=== PATIENT | female | born 1985 | race Caucasian/White ===

== ENCOUNTER → 2019-03-28 18:19 | Outpatient (CLI) | payer OTHER, SELFPAY | PROVIDERS: Visit Provider Physician Assistant | DX: J02.9 Acute pharyngitis, unspecified (principal) | CPT/HCPCS: 87070 ==

== ENCOUNTER → 2019-05-22 07:07 | Outpatient (CLI) | payer OTHER, SELFPAY ==
[2019-05-22 08:02] LABS: Hematocrit 40.8 % (36-46); Hemoglobin 13.8 g/dL (12.0-16.0); Mean Corpuscular HGB Conc 33.7 % (30-36); Mean Corpuscular Hemoglobin 30.8 PG (26-34); Mean Corpuscular Volume 91.2 fL (80-100); Platelet Count 244 X10^3/uL (150-400); Red Blood Cell Count 4.47 X10^6/uL (4.0-5.2); Red Cell Distribution Width 13.6 % (11.6-14.8); White Blood Cell Count 6.5 X10^3/uL (4.5-11.0)
[2019-05-22 08:20] LABS: Alanine Aminotransferase 47 IU/L (9-52); Albumin 4.5 g/dL (3.5-5.0); Albumin Globulin Ratio 1.4 (1.0-2.8); Alkaline Phosphatase 81 U/L (38-126); Aspartate Aminotransferase 43 IU/L (14-36); Bilirubin Total 0.9 mg/dL (0.2-1.3); Blood Urea Nitrogen 15 mg/dL (7-17); Calcium 8.5 mg/dL (8.4-10.2); Carbon Dioxide 25 mmol/L (22-32); Chloride 101 mmol/L (98-107); Cholesterol 201 mg/dL (140-199); Estimated Glomerular Filt Rate > 60.0 mL/min (>60); Globulin 3.2 g/dL (1.7-4.1); Glucose 87 mg/dL (70-100); HDL Cholesterol 57 mg/dL (40-60); LDL Cholesterol Calculated 125 mg/dL (<100); Potassium 4.2 mmol/L (3.4-5.1); Sodium 135 mmol/L (137-145); Total Protein 7.7 g/dL (6.3-8.2); Triglycerides 94 mg/dL (35-150)
[2019-05-22 08:23] LABS: HEMOLYSIS 51 (0-50)
[2019-05-22 08:43] LABS: TSH w/ Reflex to FT4 1.05 uIU/mL (0.47-4.68)
== END ==
PROVIDERS: PCP Nurse Practitioner Family; Visit Provider Nurse Practitioner Family
DX: F41.1 Generalized anxiety disorder (principal); Z00.00 Encounter for general adult medical examination without abnormal findings; Z13.6 Encounter for screening for cardiovascular disorders
CPT/HCPCS: 36415; 80053; 80061; 84443; 85027

== ENCOUNTER 2019-05-29 07:30 | Outpatient (RCR) | payer OTHER, SELFPAY ==
--- NOTE | 2018-09-12 16:46 | PT.OIE ---
Current Diagnoses Sprain of unspecified ligament of right ankle, initial encounter (09/12/18) Provider Visit Care Team Role Provider Type Milagros Haider DO Primary Care Provider Physician Specialty: Family Practice Address: [address] [place] [address], [id number] Email: [email or web address] Dudley Cleveland MD Attending Provider Physician Specialty: Orthopedic Surgery Address: [address] [place] [address], [id number] Email: [email or web address] Physical Therapy Initial Evaluation PT-OP-A Visit Information Start: 09/12/18 16:01 Freq: Status: Active Protocol: Document 09/12/18 16:01 [facility] (Rec: 09/12/18 16:28 [facility] [email or web address]) Out-Patient Physical Therapy Visit Information Visit Information Visit Type Initial Evaluation Visit Start Time 14:30 Visit Stop Time 15:15 Total Visit Minutes 45 Visit Number 1 Number of HAND QUILTER Visits 0 Evaluation Information Evaluation Date 09/12/18 PT-OP-B Current Condition Start: 09/12/18 16:01 Freq: Status: Active Protocol: Document 09/12/18 16:01 [facility] (Rec: 09/12/18 16:28 [facility] [email or web address]) Current Condition History of Current Condition Onset Date 6 weeks ago History of Current Condition 33 year old female with history of chronic ankle sprains since high school. She reports playing multiple sports in high school including basketball and skiing/ snowboarding. Currently she sprains her ankle approximately 5 times per year and it is most often her right ankle. This current time she was in her back yard kicking the ball to her dog when she stepped on a uneven surface and rolled her ankle. She noted that her symptoms were not getting better with ice so she made a MD appointment. She has had a MRI due to increased laxity of her ankle and Dr. Cleveland was concerned about her stability but the MRI was negative. Her chief complaint at this time is pain in the medial side of her foot starting at the arch and going behind her medial malleolus to the middle of her medial raygoza. 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 Prior Functional Status Baseline Function- Other history of ankle instability and ankle sprains since highschool Current Functional Impairments (Reported) Functional Limitations- Work/School difficulty with walking especially on uneven surfaces which she needs to do for her job Functional Limitations- Recreation/ unable to jump, land from a Hobbies jump, or perform cutting/ lateral movements due to pain PT-OP-C Subjective Start: 09/12/18 16: Freq: Status: Active Protocol: Document 09/12/18 16: [facility] (Rec: 09/12/18 16:28 [facility] [email or web address]) Patient Questionnaires Foot & Ankle Ability Measure- ADL and Sports FAAM-ADL Score 50 FAAM-ADL Impairment 40 to 59% Impaired (Score 33- 49) FAAM-Sport Impairment 60 to 79% Impaired (Score 6-11 ) OP-PT Pain Assessment Pain Assessment Grid Paper Pain Assessment Grid Completed Yes Location Right Lateral Ankle Pain Location Details tenderness at the ATFL Intensity 4 Scale Used Numeric (1 - 10) right medial ankle Pain Location Details pain medially to the medial malleolus, tibialis posterior tendon Intensity 4 Scale Used Numeric (1 - 10) PT-OP-D Balance Start: 09/12/18 16: Freq: Status: Active Protocol: Document 09/12/18 16: [facility] (Rec: 09/12/18 16:28 [facility] [email or web address]) OP-PT Balance Assessment Standing Balance Standing Balance Comments unable to perform single leg balance without support on the right due to pain + gluteus medius drop with SLS bilaterally Rogers Fall Scale Copyright Permission Ken JM, Ken RM, Matti SJ. Development of a scale to identify the fall- prone patient. Can J Aging 1989;8;366-7. Matthias Rogers (2009). Preventing patient falls. (2nd ed). [place]: [employer]. PT-OP-J Posture/Palpation/Skin Start: 09/12/18 16:01 Freq: Status: Active Protocol: Document 09/12/18 16:01 [facility] (Rec: 09/12/18 16:28 [facility] [email or web address]) Palpation Assessment Location Three Palpation Location R achilles tendon Palpation Findings Soft Tissue Tightness Tenderness Two Palpation Location R ATFL Palpation Findings Edema Tenderness One Palpation Location R posterior tibialis tendon Palpation Findings Soft Tissue Tightness Muscle Guarding Trigger Point Palpation Details tenderness along the tibialis posterior from insertion up to the muscle belly PT-OP-K Range of Motion Start: 09/12/18 16:01 Freq: Status: Active Protocol: Document 09/12/18 16:01 [facility] (Rec: 09/12/18 16:28 [facility] [email or web address]) Ankle and Foot Goniometric Range of Motion Ankle and Foot Measured in Degrees Left Active Ankle/Foot ROM WFL Yes Right Active Ankle/Foot ROM WFL Yes Testing Position Sitting Dorsiflexion with Knee Flexed 15 Dorsiflexion with Knee Extended 10 Plantarflexion 5 Inversion 30 Eversion 20 Ankle and Foot ROM Limitations ROM Limitations Soft Tissue Tightness Muscle Tone Pain Swelling Comments pain with AROM and PROM plantar flexion in the medial ankle and achilles tendon region, ( this did lessen following STM and gentle stretching of the achillies and tibialis posterior) PT-OP-M Strength Start: 09/12/18 16:45 Freq: Status: Active Protocol: Document 09/12/18 16:45 [facility] (Rec: 09/12/18 16:46 [facility] [email or web address]) Hip Strength Hip Manual Muscle Testing Left Abduction 4 Good Comments + gluteus medius drop with SLS Right Abduction 4 Good Comments + gluteus medius drop with SLS Ankle/Foot Strength Ankle and Foot Manual Muscle Testing Right Plantarflexion (S1) 3 Fair Inversion 3+ Fair+ Eversion (S1) 4- Good- Comments pain with resisted Plantar flexion PT-OP-Q Treatments Start: 09/12/18 16:01 Freq: Status: Active Protocol: Document 09/12/18 16:01 [facility] (Rec: 09/12/18 16:28 [facility] [email or web address]) Therapeutic Exercises Supine Exercises 2 Supine Exercise Name long sitting calf stretch Side right Reps/Minutes hold 1-2 minutes 1 [address]ine Exercise Name [address] way ankle ROM Side right Reps/Minutes 20 reps each Comments pain free ankle ROM Manual Therapy Treatment Soft Tissue Mobilization 1 Body Location right posterior tibialis tendon and muscle Mobilization Type Myofascial Release Intensity/Depth Moderate Body Position Prone Comments improved plantar flexion with decreased pain following treatment PT-OP-R Modalities Start: 09/12/18 16:01 Freq: Status: Active Protocol: Document 09/12/18 16:36 [facility] (Rec: 09/12/18 16:44 [facility] [email or web address]) Ultrasound Therapy Treatment right tibialis posterior Treatment Duration (minutes) 8 Patient Position Prone Coupling Medium Ultrasound Gel Applicator Size (cm2) 5 Mode Setting Continuous Duty Cycle 50% Intensity Setting (w/cm2) 1.0 Comments good tolerance PT-OP-T Assessment and Plan Start: 09/12/18 16:01 Freq: Status: Active Protocol: Document 09/12/18 16:36 [facility] (Rec: 09/12/18 16:44 [facility] [email or web address]) Physical Therapy Assessment Rehab Potential Rehabilitation Potential Excellent Evaluation Complexity Number of Personal Factors/Comorbidities 0 Number of Body Systems Impaired 1-2 Clinical Presentation at Evaluation Stable Impairments Impairments Activity Tolerance Balance Edema Functional Activities Functional Mobility Gait ROM Soft Tissue Mobility Strength Goals Four Impairment decreased strength of the right ankle Home Service Demonstrator Goal (LTG) improve ankle strength to 5/5 for improved ankle support and to help prevent further sprains from occuring LTG Duration 8 weeks Three Impairment pain rated 4/10 right ankle made worse with walking and hiking activities. Home Service Demonstrator Goal (LTG) Heidy is able to return to hiking and walking with improve stability and decreased pain LTG Duration 8 weeks Two Impairment pain with SLS activity and loss of balance on the right Home Service Demonstrator Goal (LTG) Heidy is able to stand single leg stance on the right without pain for 10-20 seconds LTG Duration 8 weeks One Impairment pain with ankle ROM into plantar flexion Short Term Goal (STG) Heidy is able to perform full painfree ROM into plantar flexion without any c/o pain in the medial ankle STG Duration 5 weeks Assessment Summary Assessment Malaika presents to physical therapy today with history of chronic ankle instability on the right and approximatly 5 times per year will sprain her ankle. This past sprain was more severe and she has a newer pain on the medial aspect of her ankle that she hasn't experienced before. She is tender to palpation along the posterior tibialis and achilles and pain increased with Plantar flexion type activities. She responded well to soft tissue work in this region and ROM was improved following treatment. She is unstable with single leg stance activities and is weak in the lateral stabilizers of her ankle. She will benefit from proprioception and balance training as well as ankle strengthening, ROM and hip strengthening to help support her balance. Physical Therapy Plan Frequency and Duration Frequency of Treatment 2x/Week Duration of Treatment 8 weeks Plan of Care Start Date 09/12/18 Plan of Care End Date 11/07/18 Therapeutic Interventions Therapeutic Interventions Balance Training Home Exercise Program Manual Therapy Patient/Caregiver Education Soft Tissue Mobilization Taping Therapeutic Exercises Modalities Cold Pack/Ice Massage Ultrasound
--- NOTE | 2018-09-12 16:47 | PT.OPPOC ---
Current Diagnoses Sprain of unspecified ligament of right ankle, initial encounter (09/12/18) Provider Visit Care Team Role Provider Type Milagros Haider DO Primary Care Provider Physician Specialty: Family Practice Address: [address] [place] [address], [id number] Email: [email or web address] Dudley Cleveland MD Attending Provider Physician Specialty: Orthopedic Surgery Address: [address] [place] [address], [id number] Email: [email or web address] Plan Of Care PT-OP-T Assessment and Plan Start: 09/12/18 16:01 Freq: Status: Active Protocol: Document 09/12/18 16:36 [facility] (Rec: 09/12/18 16:44 [facility] [email or web address]) Physical Therapy Assessment Rehab Potential Rehabilitation Potential Excellent Evaluation Complexity Number of Personal Factors/Comorbidities 0 Number of Body Systems Impaired 1-2 Clinical Presentation at Evaluation Stable Impairments Impairments Activity Tolerance Balance Edema Functional Activities Functional Mobility Gait ROM Soft Tissue Mobility Strength Goals Four Impairment decreased strength of the right ankle Alf Goal (LTG) improve ankle strength to 5/5 for improved ankle support and to help prevent further sprains from occuring LTG Duration 8 weeks Three Impairment pain rated 4/10 right ankle made worse with walking and hiking activities. Alf Goal (LTG) Heidy is able to return to hiking and walking with improve stability and decreased pain LTG Duration 8 weeks Two Impairment pain with SLS activity and loss of balance on the right Door Repairer Bus Goal (LTG) Heidy is able to stand single leg stance on the right without pain for 10-20 seconds LTG Duration 8 weeks One Impairment pain with ankle ROM into plantar flexion Short Term Goal (STG) Heidy is able to perform full painfree ROM into plantar flexion without any c/o pain in the medial ankle STG Duration 5 weeks Assessment Summary Assessment Malaika presents to physical therapy today with history of chronic ankle instability on the right and approximatly 5 times per year will sprain her ankle. This past sprain was more severe and she has a newer pain on the medial aspect of her ankle that she hasn't experienced before. She is tender to palpation along the posterior tibialis and achilles and pain increased with Plantar flexion type activities. She responded well to soft tissue work in this region and ROM was improved following treatment. She is unstable with single leg stance activities and is weak in the lateral stabilzers of her ankle. She will benefit from proprioception and balance training as well as ankle strengthening, ROM and hip strengthening to help support her balance. Physical Therapy Plan Frequency and Duration Frequency of Treatment 2x/Week Duration of Treatment 8 weeks Plan of Care Start Date 09/12/18 Plan of Care End Date 11/07/18 Therapeutic Interventions Therapeutic Interventions Balance Training Home Exercise Program Manual Therapy Patient/Caregiver Education Soft Tissue Mobilization Taping Therapeutic Exercises Modalities Cold Pack/Ice Massage Ultrasound Plan of Care Dates Plan of Care Start Date 09/12/18 Plan of Care End Date 11/07/18 Please Sign and Return: I have reviewed this Plan of Care and certify that the skilled therapy services above are required to meet the patient?s needs. Physician Signature Date Printed Name and Credentials Clinical Instructor Signature Printed Name and Credentials
--- NOTE | 2018-09-22 16:16 | PT.OTN ---
Current Diagnoses Sprain of unspecified ligament of right ankle, initial encounter (09/22/18) Physical Therapy Treatment Note PT-OP-A Visit Information Start: 09/12/18 16:01 Freq: Status: Active Protocol: Document 09/22/18 07:30 [facility] (Rec: 09/22/18 16:13 [facility] [email or web address]) Out-Patient Physical Therapy Visit Information Visit Information Visit Type Treatment Note Visit Start Time 07:30 Visit Stop Time 08:15 Total Visit Minutes 45 Visit Number 2 Evaluation Information Evaluation Date 09/12/18 PT-OP-B Current Condition Start: 09/12/18 16:01 Freq: Status: Active Protocol: Document 09/12/18 16:01 [facility] (Rec: 09/12/18 16:28 [facility] [email or web address]) Current Condition History of Current Condition Onset Date 6 weeks ago History of Current Condition 33 year old female with history of chronic ankle sprains since highschool. She reports playing mulpiple sports in highschool including basketball and skiing/ snowboarding. Currently she sprains her ankle approximatley 5 times per year and it is most often her right ankle. This current time she was in her back yard kicking the ball to her dog when she stepped on a uneven surface and rolled her ankle. She noted that her symptoms were not getting better with ice so she made a MD appointment. She has had a MRI due to increased laxity of her ankle and Dr. Cleveland was concerned about her stability but the MRI was negative. Her chief complaint at this time is pain in the medial side of her foot starting at the arch and going behind her medial malleolus to the middle of her medial raygoza. 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 Prior Functional Status Baseline Function- Other history of ankle instability and ankle sprains since highschool Current Functional Impairments (Reported) Functional Limitations- Work/School difficulty with walking especially on uneven surfaces which she needs to do for her job Functional Limitations- Recreation/ unable to jump, land from a Hobbies jump, or perform cutting/ lateral movements due to pain PT-OP-C Subjective Start: 09/12/18 16:01 Freq: Status: Active Protocol: Document 09/22/18 07:30 [facility] (Rec: 09/22/18 16:13 AMB [email or web address]) OP-PT Subjective Patient Comments Patient Comments The patient states that she has been trying to do her stretches and that it still feels tight. She has not been going into the streams, and has been letting her coworker do that majority of the getting into the water. PT-OP-D Balance Start: 09/12/18 16:01 Freq: Status: Active Protocol: Document 09/12/18 16:01 [facility] (Rec: 09/12/18 16:28 [facility] [email or web address]) OP-PT Balance Assessment Standing Balance Standing Balance Comments unable to perform single leg balance without support on the right due to pain + gluteus medius drop with SLS bilaterally Rogers Fall Scale Copyright Permission Ken PRADHAN, Ken RM, Matti SJ. Development of a scale to identify the fall- prone patient. Can J Aging 1989;8;366-7. Matthias Rogers (2009). Preventing patient falls. (2nd ed). [place]: [employer]. PT-OP-J Posture/Palpation/Skin Start: 09/12/18 16:01 Freq: Status: Active Protocol: Document 09/12/18 16:01 [facility] (Rec: 09/12/18 16:28 [facility] [email or web address]) Palpation Assessment Location Three Palpation Location R achilles tendon Palpation Findings Soft Tissue Tightness Tenderness Two Palpation Location R ATFL Palpation Findings Edema Tenderness One Palpation Location R posterior tibialis tendon Palpation Findings Soft Tissue Tightness Muscle Guarding Trigger Point Palpation Details tenderness along the tibialis posterior from insertion up to the muscle belly PT-OP-K Range of Motion Start: 09/12/18 16:01 Freq: Status: Active Protocol: Document 09/12/18 16:01 [facility] (Rec: 09/12/18 16:28 [facility] [email or web address]) Ankle and Foot Goniometric Range of Motion Ankle and Foot Measured in Degrees Left Active Ankle/Foot ROM WFL Yes Right Active Ankle/Foot ROM WFL Yes Testing Position Sitting Dorsiflexion with Knee Flexed 15 Dorsiflexion with Knee Extended 10 Plantarflexion 5 Inversion 30 Eversion 20 Ankle and Foot ROM Limitations ROM Limitations Soft Tissue Tightness Muscle Tone Pain Swelling Comments pain with AROM and PROM plantar flexion in the medial ankle and achilles tendon region, ( this did lessen following STM and gentle stretching of the achillies and tibialis posterior) PT-OP-M Strength Start: 09/12/18 16:45 Freq: Status: Active Protocol: Document 09/12/18 16:45 [facility] (Rec: 09/12/18 16:46 [facility] [email or web address]) Hip Strength Hip Manual Muscle Testing Left Abduction 4 Good Comments + gluteus medius drop with SLS Right Abduction 4 Good Comments + gluteus medius drop with SLS Ankle/Foot Strength Ankle and Foot Manual Muscle Testing Right Plantarflexion (S1) 3 Fair Inversion 3+ Fair+ Eversion (S1) 4- Good- Comments pain with resisted Plantar flexion PT-OP-Q Treatments Start: 09/12/18 16:01 Freq: Status: Active Protocol: Document 09/22/18 07:30 AMB (Rec: 09/22/18 16:13 AMB [email or web address]) Therapeutic Exercises Supine Exercises 3 Supine Exercise Name eversion/inversion isometrics Reps/Minutes 5x10 2 Supine Exercise Name long sitting calf stretch Side right Reps/Minutes hold 1-2 minutes 1 [address]ine Exercise Name [address] ankle ROM Side right Reps/Minutes 20 reps each Comments pain free ankle ROM Manual Therapy Treatment Soft Tissue Mobilization 2 Body Location ATFL Mobilization Type Cross-Friction 1 Body Location right posterior tibialis tendon and muscle Mobilization Type Myofascial Release Intensity/Depth Moderate Body Position Prone Joint Mobilizations 1 Joint talocrural Direction posterior Grade II PT-OP-R Modalities Start: 09/12/18 16:01 Freq: Status: Active Protocol: Document 09/22/18 07:30 AMB (Rec: 09/22/18 16:14 AMB [email or web address]) Hot Pack/Cold Pack Treatment Cold Pack Location ankle Patient Position Supine Treatment Duration (minutes) 10 Patient Tolerance Good PT-OP-T Assessment and Plan Start: 09/12/18 16:01 Freq: Status: Active Protocol: Document 09/22/18 07:30 AMB (Rec: 09/22/18 16:15 AMB [email or web address]) Physical Therapy Assessment Assessment Summary Assessment Pt with limited eversion. Plantarflexion is improving, ankle does not subjectively feel stable to pt. Physical Therapy Plan Next Visit Focus/Plan Next Note Type Treatment Note Next Visit Plan Progress mobility of ankle, then increase stabilization, add in weightbearing exercises as tolerated and able.
--- NOTE | 2018-09-26 16:57 | PT.OTN ---
Current Diagnoses Sprain of unspecified ligament of right ankle, initial encounter (09/26/18) Physical Therapy Treatment Note PT-OP-A Visit Information Start: 09/12/18 16:01 Freq: Status: Active Protocol: Document 09/26/18 16:39 EA (Rec: 09/26/18 16:47 EA [id number]) Out-Patient Physical Therapy Visit Information Visit Information Visit Type Treatment Note Visit Start Time 16:00 Visit Stop Time 16:45 Total Visit Minutes 45 Visit Number 3 PT-OP-B Current Condition Start: 09/12/18 16:01 Freq: Status: Active Protocol: Document 09/12/18 16:01 AMH (Rec: 09/12/18 16:28 AMH [email or web address]) Current Condition History of Current Condition Onset Date 6 weeks ago History of Current Condition 33 year old female with history of chronic ankle sprains since highschool. She reports playing mulpiple sports in highschool including basketball and skiing/ snowboarding. Currently she sprains her ankle approximatley 5 times per year and it is most often her right ankle. This current time she was in her back yard kicking the ball to her dog when she stepped on a uneven surface and rolled her ankle. She noted that her symptoms were not getting better with ice so she made a MD appointment. She has had a MRI due to increased laxity of her ankle and Dr. Cleveland was concerned about her stability but the MRI was negative. Her chief complaint at this time is pain in the medial side of her foot starting at the arch and going behind her medial malleolus to the middle of her medial raygoza. 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 Prior Functional Status Baseline Function- Other history of ankle instability and ankle sprains since highschool Current Functional Impairments (Reported) Functional Limitations- Work/School difficulty with walking especially on uneven surfaces which she needs to do for her job Functional Limitations- Recreation/ unable to jump, land from a Hobbies jump, or perform cutting/ lateral movements due to pain PT-OP-C Subjective Start: 09/12/18 16:01 Freq: Status: Active Protocol: Document 09/26/18 16:39 EA (Rec: 09/26/18 16:47 EA [id number]) OP-PT Subjective Patient Comments Patient Comments Pt reports right ankle pain mostly with full PF; denies increased in symptoms at calf areas. PT-OP-D Balance Start: 09/12/18 16:01 Freq: Status: Active Protocol: Document 09/12/18 16:01 AMH (Rec: 09/12/18 16:28 AMH [email or web address]) OP-PT Balance Assessment Standing Balance Standing Balance Comments unable to perform single leg balance without support on the right due to pain + gluteus medius drop with SLS bilaterally Rogers Fall Scale Copyright Permission Ken JM, Ken RM, Matti SJ. Development of a scale to identify the fall- prone patient. Can J Aging 1989;8;366-7. Matthias Rogers (2009). Preventing patient falls. (2nd ed). [place]: [employer]. PT-OP-J Posture/Palpation/Skin Start: 09/12/18 16:01 Freq: Status: Active Protocol: Document 09/12/18 16:01 AMH (Rec: 09/12/18 16:28 AMH [email or web address]) Palpation Assessment Location Three Palpation Location R achilles tendon Palpation Findings Soft Tissue Tightness Tenderness Two Palpation Location R ATFL Palpation Findings Edema Tenderness One Palpation Location R posterior tibialis tendon Palpation Findings Soft Tissue Tightness Muscle Guarding Trigger Point Palpation Details tenderness along the tibialis posterior from insertion up to the muscle belly PT-OP-K Range of Motion Start: 09/12/18 16:01 Freq: Status: Active Protocol: Document 09/12/18 16:01 AMH (Rec: 09/12/18 16:28 AMH [email or web address]) Ankle and Foot Goniometric Range of Motion Ankle and Foot Measured in Degrees Left Active Ankle/Foot ROM WFL Yes Right Active Ankle/Foot ROM WFL Yes Testing Position Sitting Dorsiflexion with Knee Flexed 15 Dorsiflexion with Knee Extended 10 Plantarflexion 5 Inversion 30 Eversion 20 Ankle and Foot ROM Limitations ROM Limitations Soft Tissue Tightness Muscle Tone Pain Swelling Comments pain with AROM and PROM plantar flexion in the medial ankle and achilles tendon region, ( this did lessen following STM and gentle stretching of the achillies and tibialis posterior) PT-OP-M Strength Start: 09/12/18 16:45 Freq: Status: Active Protocol: Document 09/12/18 16:45 AMH (Rec: 09/12/18 16:46 AMH [email or web address]) Hip Strength Hip Manual Muscle Testing Left Abduction 4 Good Comments + gluteus medius drop with SLS Right Abduction 4 Good Comments + gluteus medius drop with SLS Ankle/Foot Strength Ankle and Foot Manual Muscle Testing Right Plantarflexion (S1) 3 Fair Inversion 3+ Fair+ Eversion (S1) 4- Good- Comments pain with resisted Plantar flexion PT-OP-Q Treatments Start: 09/12/18 16:01 Freq: Status: Active Protocol: Document 09/26/18 16:39 EA (Rec: 09/26/18 16:47 EA [id number]) Therapeutic Exercises Supine Exercises 3 Supine Exercise Name eversion/inversion isometrics Reps/Minutes 5x10 2 Supine Exercise Name long sitting calf stretch Side right Reps/Minutes hold 1-2 minutes 1 [address] Name [address] ankle ROM Side right Reps/Minutes 20 reps each Comments pain free ankle ROM Sitting Exercises 1 Sitting Exercise Name ABC's/alphabet Reps/Minutes x 1 rep each letter Standing Exercises 2 Standing Exercise Name Heel raises Reps/Minutes x 15 reps Comments as tolerated WB 1 Standing Exercise Name The Stevie: gastrocsoleus Reps/Minutes x 15SH x 2 reps Comments pain free range Manual Therapy Treatment Soft Tissue Mobilization 2 Body Location ATFL Mobilization Type Cross-Friction 1 Body Location right posterior tibialis tendon and muscle Mobilization Type Myofascial Release Intensity/Depth Moderate Body Position Prone Joint Mobilizations 1 Joint talocrural Direction posterior Grade II PT-OP-R Modalities Start: 09/12/18 16:01 Freq: Status: Active Protocol: Document 09/26/18 16:39 EA (Rec: 09/26/18 16:47 EA [id number]) Hot Pack/Cold Pack Treatment Cold Pack Location ankle Patient Position Supine Treatment Duration (minutes) 10 Patient Tolerance Good PT-OP-T Assessment and Plan Start: 09/12/18 16:01 Freq: Status: Active Protocol: Document 09/26/18 16:39 EA (Rec: 09/26/18 16:47 EA [id number]) Physical Therapy Assessment Assessment Summary Assessment Improved ankle ROM with less discomfort after manual therapy. Advised patient to perform ABC/alphabet at home. Physical Therapy Plan Next Visit Focus/Plan Next Note Type Treatment Note Next Visit Plan Progress mobility of ankle, then increase stabilization, add in weightbearing exercises as tolerated and able.
--- NOTE | 2018-09-29 08:30 | PT.OTN ---
Current Diagnoses Sprain of unspecified ligament of right ankle, initial encounter (09/29/18) Physical Therapy Treatment Note PT-OP-A Visit Information Start: 09/12/18 16:01 Freq: Status: Active Protocol: Document 09/29/18 08:13 SA (Rec: 09/29/18 08:30 SA [email or web address]) Out-Patient Physical Therapy Visit Information Visit Information Visit Type Treatment Note Visit Start Time 07:30 Visit Stop Time 08:20 Total Visit Minutes 50 Visit Number 4 Number of PER DIEM INTERPRETER Visits 1 PT-OP-B Current Condition Start: 09/12/18 16:01 Freq: Status: Active Protocol: Document 09/12/18 16:01 AMH (Rec: 09/12/18 16:28 AMH [email or web address]) Current Condition History of Current Condition Onset Date 6 weeks ago History of Current Condition 33 year old female with history of chronic ankle sprains since highschool. She reports playing mulpiple sports in highschool including basketball and skiing/ snowboarding. Currently she sprains her ankle approximatley 5 times per year and it is most often her right ankle. This current time she was in her back yard kicking the ball to her dog when she stepped on a uneven surface and rolled her ankle. She noted that her symptoms were not getting better with ice so she made a MD appointment. She has had a MRI due to increased laxity of her ankle and Dr. Cleveland was concerned about her stability but the MRI was negative. Her chief complaint at this time is pain in the medial side of her foot starting at the arch and going behind her medial malleolus to the middle of her medial raygoza. 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 Prior Functional Status Baseline Function- Other history of ankle instability and ankle sprains since highschool Current Functional Impairments (Reported) Functional Limitations- Work/School difficulty with walking especially on uneven surfaces which she needs to do for her job Functional Limitations- Recreation/ unable to jump, land from a Hobbies jump, or perform cutting/ lateral movements due to pain PT-OP-C Subjective Start: 09/12/18 16:01 Freq: Status: Active Protocol: Document 09/29/18 08:13 SA (Rec: 09/29/18 08:30 SA [email or web address]) OP-PT Subjective Patient Comments Patient Comments Pt reports gradual decrease in irritation but notes full PF is painful. Icing 1x daily and doing stretches at home. PT-OP-D Balance Start: 09/12/18 16:01 Freq: Status: Active Protocol: Document 09/12/18 16:01 [facility] (Rec: 09/12/18 16:28 AMH [email or web address]) OP-PT Balance Assessment Standing Balance Standing Balance Comments unable to perform single leg balance without support on the right due to pain + gluteus medius drop with SLS bilaterally Rogers Fall Scale Copyright Permission Ken JM, Ken RM, Matti SJ. Development of a scale to identify the fall- prone patient. Can J Aging 1989;8;366-7. Matthias Rogers (2009). Preventing patient falls. (2nd ed). [place]: [employer]. PT-OP-J Posture/Palpation/Skin Start: 09/12/18 16:01 Freq: Status: Active Protocol: Document 09/12/18 16:01 [facility] (Rec: 09/12/18 16:28 [facility] [email or web address]) Palpation Assessment Location Three Palpation Location R achilles tendon Palpation Findings Soft Tissue Tightness Tenderness Two Palpation Location R ATFL Palpation Findings Edema Tenderness One Palpation Location R posterior tibialis tendon Palpation Findings Soft Tissue Tightness Muscle Guarding Trigger Point Palpation Details tenderness along the tibialis posterior from insertion up to the muscle belly PT-OP-K Range of Motion Start: 09/12/18 16:01 Freq: Status: Active Protocol: Document 09/12/18 16:01 [facility] (Rec: 09/12/18 16:28 [facility] [email or web address]) Ankle and Foot Goniometric Range of Motion Ankle and Foot Measured in Degrees Left Active Ankle/Foot ROM WFL Yes Right Active Ankle/Foot ROM WFL Yes Testing Position Sitting Dorsiflexion with Knee Flexed 15 Dorsiflexion with Knee Extended 10 Plantarflexion 5 Inversion 30 Eversion 20 Ankle and Foot ROM Limitations ROM Limitations Soft Tissue Tightness Muscle Tone Pain Swelling Comments pain with AROM and PROM plantar flexion in the medial ankle and achilles tendon region, ( this did lessen following STM and gentle stretching of the achillies and tibialis posterior) PT-OP-M Strength Start: 09/12/18 16:45 Freq: Status: Active Protocol: Document 09/12/18 16:45 AMH (Rec: 09/12/18 16:46 AMH [email or web address]) Hip Strength Hip Manual Muscle Testing Left Abduction 4 Good Comments + gluteus medius drop with SLS Right Abduction 4 Good Comments + gluteus medius drop with SLS Ankle/Foot Strength Ankle and Foot Manual Muscle Testing Right Plantarflexion (S1) 3 Fair Inversion 3+ Fair+ Eversion (S1) 4- Good- Comments pain with resisted Plantar flexion PT-OP-Q Treatments Start: 09/12/18 16:01 Freq: Status: Active Protocol: Document 09/29/18 08:13 SA (Rec: 09/29/18 08:30 SA [email or web address]) Therapeutic Exercises Supine Exercises 3 Supine Exercise Name eversion/inversion isometrics Reps/Minutes 5x10 2 Supine Exercise Name long sitting calf stretch Side right Reps/Minutes hold 1-2 minutes 1 Supine Exercise Name [address] ankle ROM Side right Reps/Minutes 20 reps each Comments pain free ankle ROM Standing Exercises 2 Standing Exercise Name Heel raises Reps/Minutes x 15 reps Comments as tolerated WB 1 Standing Exercise Name The Stevie: gastrocsoleus Reps/Minutes x 15SH x 2 reps Comments pain free range Manual Therapy Treatment Soft Tissue Mobilization 2 Body Location ATFL Mobilization Type Cross-Friction 1 Body Location right posterior tibialis tendon and muscle Mobilization Type Myofascial Release Intensity/Depth Moderate Body Position Prone PT-OP-R Modalities Start: 09/12/18 16:01 Freq: Status: Active Protocol: Document 09/29/18 08:13 SA (Rec: 09/29/18 08:30 SA [email or web address]) Ultrasound Therapy Treatment right tibialis posterior Treatment Duration (minutes) 8 Patient Position Prone Coupling Medium Ultrasound Gel Applicator Size (cm2) 5 Mode Setting Continuous Duty Cycle 50% Intensity Setting (w/cm2) 1.0 Comments good tolerance PT-OP-T Assessment and Plan Start: 09/12/18 16:01 Freq: Status: Active Protocol: Document 09/29/18 08:13 SA (Rec: 09/29/18 08:30 SA [email or web address]) Physical Therapy Assessment Progress Towards Goals Progress Towards Goals Progressing Toward Goals Assessment Summary Assessment Less pain with ankle ROM and good tolerance of manual therapy. Physical Therapy Plan Next Visit Focus/Plan Next Note Type Treatment Note Next Visit Plan Progress ankle mobility and strengthening program as able.
--- NOTE | 2018-10-06 15:48 | PT.OTN ---
Current Diagnoses Sprain of unspecified ligament of right ankle, initial encounter (10/06/18) Physical Therapy Treatment Note PT-OP-A Visit Information Start: 09/12/18 16:01 Freq: Status: Active Protocol: Document 10/06/18 08:15 AMB (Rec: 10/06/18 12:13 AMB [email or web address]) Out-Patient Physical Therapy Visit Information Visit Information Visit Type Treatment Note Visit Start Time 07:30 Visit Stop Time 08:20 Total Visit Minutes 50 Visit Number 2 Number of EAR SPECIALIST Visits 0 Evaluation Information Evaluation Date 09/12/18 PT-OP-B Current Condition Start: 09/12/18 16:01 Freq: Status: Active Protocol: Document 09/12/18 16:01 AMH (Rec: 09/12/18 16:28 AMH [email or web address]) Current Condition History of Current Condition Onset Date 6 weeks ago History of Current Condition 33 year old female with history of chronic ankle sprains since highschool. She reports playing mulpiple sports in highschool including basketball and skiing/ snowboarding. Currently she sprains her ankle approximatley 5 times per year and it is most often her right ankle. This current time she was in her back yard kicking the ball to her dog when she stepped on a uneven surface and rolled her ankle. She noted that her symptoms were not getting better with ice so she made a MD appointment. She has had a MRI due to increased laxity of her ankle and Dr. Cleveland was concerned about her stability but the MRI was negative. Her chief complaint at this time is pain in the medial side of her foot starting at the arch and going behind her medial malleolus to the middle of her medial raygoza. 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 Prior Functional Status Baseline Function- Other history of ankle instability and ankle sprains since highschool Current Functional Impairments (Reported) Functional Limitations- Work/School difficulty with walking especially on uneven surfaces which she needs to do for her job Functional Limitations- Recreation/ unable to jump, land from a Hobbies jump, or perform cutting/ lateral movements due to pain PT-OP-C Subjective Start: 09/12/18 16:01 Freq: Status: Active Protocol: Document 10/06/18 08:15 AMB (Rec: 10/06/18 12:13 AMB [email or web address]) OP-PT Subjective Patient Comments Patient Comments The patient reports she feels like she is still platueaed. PT-OP-D Balance Start: 09/12/18 16:01 Freq: Status: Active Protocol: Document 09/12/18 16:01 AMH (Rec: 09/12/18 16:28 AMH [email or web address]) OP-PT Balance Assessment Standing Balance Standing Balance Comments unable to perform single leg balance without support on the right due to pain + gluteus medius drop with SLS bilaterally Rogers Fall Scale Copyright Permission Ken PRADHAN, Ken RM, Matti SJ. Development of a scale to identify the fall- prone patient. Can J Aging 1989;8;366-7. Matthias Rogers (2009). Preventing patient falls. (2nd ed). [place]: [employer]. PT-OP-J Posture/Palpation/Skin Start: 09/12/18 16:01 Freq: Status: Active Protocol: Document 09/12/18 16:01 AMH (Rec: 09/12/18 16:28 AMH [email or web address]) Palpation Assessment Location Three Palpation Location R achilles tendon Palpation Findings Soft Tissue Tightness Tenderness Two Palpation Location R ATFL Palpation Findings Edema Tenderness One Palpation Location R posterior tibialis tendon Palpation Findings Soft Tissue Tightness Muscle Guarding Trigger Point Palpation Details tenderness along the tibialis posterior from insertion up to the muscle belly PT-OP-K Range of Motion Start: 09/12/18 16:01 Freq: Status: Active Protocol: Document 09/12/18 16:01 AMH (Rec: 09/12/18 16:28 AMH [email or web address]) Ankle and Foot Goniometric Range of Motion Ankle and Foot Measured in Degrees Left Active Ankle/Foot ROM WFL Yes Right Active Ankle/Foot ROM WFL Yes Testing Position Sitting Dorsiflexion with Knee Flexed 15 Dorsiflexion with Knee Extended 10 Plantarflexion 5 Inversion 30 Eversion 20 Ankle and Foot ROM Limitations ROM Limitations Soft Tissue Tightness Muscle Tone Pain Swelling Comments pain with AROM and PROM plantar flexion in the medial ankle and achilles tendon region, ( this did lessen following STM and gentle stretching of the achillies and tibialis posterior) PT-OP-M Strength Start: 09/12/18 16:45 Freq: Status: Active Protocol: Document 09/12/18 16:45 AMH (Rec: 09/12/18 16:46 AMH [email or web address]) Hip Strength Hip Manual Muscle Testing Left Abduction 4 Good Comments + gluteus medius drop with SLS Right Abduction 4 Good Comments + gluteus medius drop with SLS Ankle/Foot Strength Ankle and Foot Manual Muscle Testing Right Plantarflexion (S1) 3 Fair Inversion 3+ Fair+ Eversion (S1) 4- Good- Comments pain with resisted Plantar flexion PT-OP-Q Treatments Start: 09/12/18 16:01 Freq: Status: Active Protocol: Document 10/06/18 08:15 AMB (Rec: 10/06/18 13:01 AMB [email or web address]) Gym Equipment Shuttle Balance 1 Details RED Reps/Duration 10 min Comments m/l, a/p strides stance Therapeutic Exercises Supine Exercises 3 Supine Exercise Name eversion/inversion isometrics Resistance #3 tband Reps/Minutes 5x10 2 Supine Exercise Name long sitting calf stretch Side right Reps/Minutes hold 1-2 minutes Sitting Exercises 2 Sitting Exercise Name eversion/inversion Equipment Used 2 tband Reps/Minutes 2x10 Standing Exercises 2 Standing Exercise Name Heel raises Reps/Minutes x 15 reps Comments unilateral then double 1 Standing Exercise Name The Stevie: gastrocsoleus Reps/Minutes x 15SH x 2 reps Comments pain free range Manual Therapy Treatment Joint Mobilizations 1 Joint talocrural Direction posterior Grade II PT-OP-R Modalities Start: 09/12/18 16:01 Freq: Status: Active Protocol: Document 10/06/18 08:15 AMB (Rec: 10/06/18 15:46 AMB [email or web address]) Hot Pack/Cold Pack Treatment Cold Pack Location ankle Patient Position Supine Treatment Duration (minutes) 10 Patient Tolerance Good PT-OP-T Assessment and Plan Start: 09/12/18 16:01 Freq: Status: Active Protocol: Document 10/06/18 08:15 AMB (Rec: 10/06/18 13:01 AMB [email or web address]) Physical Therapy Assessment Assessment Summary Assessment Pt is tolerating more strengthening Physical Therapy Plan Next Visit Focus/Plan Next Note Type Treatment Note Next Visit Plan Progress ankle mobility and strengthening program as able.
--- NOTE | 2018-10-10 09:00 | PT.OTN ---
Current Diagnoses Sprain of unspecified ligament of right ankle, initial encounter (10/10/18) Physical Therapy Treatment Note PT-OP-A Visit Information Start: 09/12/18 16:01 Freq: Status: Active Protocol: Document 10/10/18 08:52 SA (Rec: 10/10/18 08:59 SA [email or web address]) Out-Patient Physical Therapy Visit Information Visit Information Visit Type Treatment Note Visit Start Time 07:30 Visit Stop Time 08:18 Total Visit Minutes 48 Visit Number 6 Number of MANAGER HEAVY DUTY Visits 1 PT-OP-B Current Condition Start: 09/12/18 16:01 Freq: Status: Active Protocol: Document 09/12/18 16:01 AMH (Rec: 09/12/18 16:28 AMH [email or web address]) Current Condition History of Current Condition Onset Date 6 weeks ago History of Current Condition 33 year old female with history of chronic ankle sprains since highschool. She reports playing mulpiple sports in highschool including basketball and skiing/ snowboarding. Currently she sprains her ankle approximatley 5 times per year and it is most often her right ankle. This current time she was in her back yard kicking the ball to her dog when she stepped on a uneven surface and rolled her ankle. She noted that her symptoms were not getting better with ice so she made a MD appointment. She has had a MRI due to increased laxity of her ankle and Dr. Cleveland was concerned about her stability but the MRI was negative. Her chief complaint at this time is pain in the medial side of her foot starting at the arch and going behind her medial malleolus to the middle of her medial raygoza. 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 Prior Functional Status Baseline Function- Other history of ankle instability and ankle sprains since highschool Current Functional Impairments (Reported) Functional Limitations- Work/School difficulty with walking especially on uneven surfaces which she needs to do for her job Functional Limitations- Recreation/ unable to jump, land from a Hobbies jump, or perform cutting/ lateral movements due to pain PT-OP-C Subjective Start: 09/12/18 16:01 Freq: Status: Active Protocol: Document 10/10/18 08:52 SA (Rec: 10/10/18 08:59 SA [email or web address]) OP-PT Subjective Patient Comments Patient Comments [place] a little better this wee, challenged myself at work yesterday with uneven surfaces , very carefully and seem to have tolerated it well. PT-OP-D Balance Start: 09/12/18 16:01 Freq: Status: Active Protocol: Document 09/12/18 16:01 PENDING SALE TO [facility] (Rec: 09/12/18 16:28 [facility]END[facility] [email or web address]) OP-PT Balance Assessment Standing Balance Standing Balance Comments unable to perform single leg balance without support on the right due to pain + gluteus medius drop with SLS bilaterally Rogers Fall Scale Copyright Permission Ken JM, Ken RM, Matti SJ. Development of a scale to identify the fall- prone patient. Can J Aging 1989;8;366-7. Matthias Rogers (2009). Preventing patient falls. (2nd ed). [place]: [employer]. PT-OP-J Posture/Palpation/Skin Start: 09/12/18 16:01 Freq: Status: Active Protocol: Document 09/12/18 16:01 PENDING SALE TO [facility] (Rec: 09/12/18 16:28 [facility]END[facility] SALE TO [facility] [email or web address]) Palpation Assessment Location Three Palpation Location R achilles tendon Palpation Findings Soft Tissue Tightness Tenderness Two Palpation Location R ATFL Palpation Findings Edema Tenderness One Palpation Location R posterior tibialis tendon Palpation Findings Soft Tissue Tightness Muscle Guarding Trigger Point Palpation Details tenderness along the tibialis posterior from insertion up to the muscle belly PT-OP-K Range of Motion Start: 09/12/18 16:01 Freq: Status: Active Protocol: Document 09/12/18 16:01 [facility]END[facility] SALE TO [facility] (Rec: 09/12/18 16:28 [facility]END[facility] [email or web address]) Ankle and Foot Goniometric Range of Motion Ankle and Foot Measured in Degrees Left Active Ankle/Foot ROM WFL Yes Right Active Ankle/Foot ROM WFL Yes Testing Position Sitting Dorsiflexion with Knee Flexed 15 Dorsiflexion with Knee Extended 10 Plantarflexion 5 Inversion 30 Eversion 20 Ankle and Foot ROM Limitations ROM Limitations Soft Tissue Tightness Muscle Tone Pain Swelling Comments pain with AROM and PROM plantar flexion in the medial ankle and achilles tendon region, ( this did lessen following STM and gentle stretching of the achillies and tibialis posterior) PT-OP-M Strength Start: 09/12/18 16:45 Freq: Status: Active Protocol: Document 09/12/18 16:45 AMH (Rec: 09/12/18 16:46 AMH [email or web address]) Hip Strength Hip Manual Muscle Testing Left Abduction 4 Good Comments + gluteus medius drop with SLS Right Abduction 4 Good Comments + gluteus medius drop with SLS Ankle/Foot Strength Ankle and Foot Manual Muscle Testing Right Plantarflexion (S1) 3 Fair Inversion 3+ Fair+ Eversion (S1) 4- Good- Comments pain with resisted Plantar flexion PT-OP-Q Treatments Start: 09/12/18 16:01 Freq: Status: Active Protocol: Document 10/10/18 08:52 SA (Rec: 10/10/18 08:59 SA [email or web address]) Gym Equipment Shuttle Balance 1 Details RED Reps/Duration 10 min Comments m/l, a/p strides stance Therapeutic Exercises Supine Exercises 3 Supine Exercise Name eversion/inversion isometrics Resistance #3 tband Reps/Minutes 5x10 2 Supine Exercise Name ARIE calf stretching Side right Reps/Minutes hold 1-2 minutes 1 [address]ine Exercise Name [address] ankle ROM Side right Reps/Minutes 20 reps each Comments pain free ankle ROM Sitting Exercises 2 Sitting Exercise Name eversion/inversion Equipment Used 2 tband Reps/Minutes 2x10 1 Sitting Exercise Name ABC's/alphabet Reps/Minutes x 1 rep each letter Standing Exercises 2 Standing Exercise Name Heel raises Reps/Minutes x 15 reps Comments unilateral then double Manual Therapy Treatment Soft Tissue Mobilization 2 Body Location ATFL Mobilization Type Cross-Friction 1 Body Location right posterior tibialis tendon and muscle Mobilization Type Myofascial Release Intensity/Depth Moderate Body Position Prone PT-OP-R Modalities Start: 09/12/18 16:01 Freq: Status: Active Protocol: Document 10/10/18 08:52 SA (Rec: 10/10/18 08:59 SA [email or web address]) Hot Pack/Cold Pack Treatment Cold Pack Location ankle Patient Position Supine Treatment Duration (minutes) 10 Patient Tolerance Good Ultrasound Therapy Treatment right tibialis posterior Treatment Duration (minutes) 8 Patient Position Prone Coupling Medium Ultrasound Gel Applicator Size (cm2) 5 Mode Setting Continuous Duty Cycle 50% Intensity Setting (w/cm2) 1.0 Comments good tolerance PT-OP-T Assessment and Plan Start: 09/12/18 16:01 Freq: Status: Active Protocol: Document 10/10/18 08:52 SA (Rec: 10/10/18 08:59 SA [email or web address]) Physical Therapy Assessment Progress Towards Goals Progress Towards Goals Progressing Toward Goals Assessment Summary Assessment Pt tolerating strengthening in all planes well, responds well to STM and ice. Pt using CP 1x daily and doing HEP fairly consistently. Physical Therapy Plan Next Visit Focus/Plan Next Note Type Treatment Note Next Visit Plan Assess response to strengthening and balance work. Pt to progress at work as able.
--- NOTE | 2018-10-13 10:24 | PT.OTN ---
Current Diagnoses Sprain of unspecified ligament of right ankle, initial encounter (10/13/18) Physical Therapy Treatment Note PT-OP-A Visit Information Start: 09/12/18 16:01 Freq: Status: Active Protocol: Document 10/13/18 07:30 AMB (Rec: 10/13/18 10:18 AMB [email or web address]) Out-Patient Physical Therapy Visit Information Visit Information Visit Type Treatment Note Visit Start Time 07:30 Visit Stop Time 08:20 Total Visit Minutes 50 Visit Number 7 Number of HEADWAITER/HEADWAITRESS Visits 0 PT-OP-B Current Condition Start: 09/12/18 16:01 Freq: Status: Active Protocol: Document 09/12/18 16:01 AMH (Rec: 09/12/18 16:28 AMH [email or web address]) Current Condition History of Current Condition Onset Date 6 weeks ago History of Current Condition 33 year old female with history of chronic ankle sprains since highschool. She reports playing mulpiple sports in highschool including basketball and skiing/ snowboarding. Currently she sprains her ankle approximatley 5 times per year and it is most often her right ankle. This current time she was in her back yard kicking the ball to her dog when she stepped on a uneven surface and rolled her ankle. She noted that her symptoms were not getting better with ice so she made a MD appointment. She has had a MRI due to increased laxity of her ankle and Dr. Cleveland was concerned about her stability but the MRI was negative. Her chief complaint at this time is pain in the medial side of her foot starting at the arch and going behind her medial malleolus to the middle of her medial raygoza. 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 Prior Functional Status Baseline Function- Other history of ankle instability and ankle sprains since highschool Current Functional Impairments (Reported) Functional Limitations- Work/School difficulty with walking especially on uneven surfaces which she needs to do for her job Functional Limitations- Recreation/ unable to jump, land from a Hobbies jump, or perform cutting/ lateral movements due to pain PT-OP-C Subjective Start: 09/12/18 16:01 Freq: Status: Active Protocol: Document 10/13/18 07:30 AMB (Rec: 10/13/18 10:18 AMB [email or web address]) OP-PT Subjective Patient Comments Patient Comments Pt feels improvement over past week. Still stiff in the morning, but tolerating more uneven surface walking. PT-OP-D Balance Start: 09/12/18 16:01 Freq: Status: Active Protocol: Document 09/12/18 16:01 AMH (Rec: 09/12/18 16:28 AMH [email or web address]) OP-PT Balance Assessment Standing Balance Standing Balance Comments unable to perform single leg balance without support on the right due to pain + gluteus medius drop with SLS bilaterally Rogers Fall Scale Copyright Permission Ken JM, Ken RM, Matti SJ. Development of a scale to identify the fall- prone patient. Can J Aging 1989;8;366-7. Matthias Rogers (2009). Preventing patient falls. (2nd ed). [place]: [employer]. PT-OP-J Posture/Palpation/Skin Start: 09/12/18 16:01 Freq: Status: Active Protocol: Document 09/12/18 16:01 AMH (Rec: 09/12/18 16:28 AMH [email or web address]) Palpation Assessment Location Three Palpation Location R achilles tendon Palpation Findings Soft Tissue Tightness Tenderness Two Palpation Location R ATFL Palpation Findings Edema Tenderness One Palpation Location R posterior tibialis tendon Palpation Findings Soft Tissue Tightness Muscle Guarding Trigger Point Palpation Details tenderness along the tibialis posterior from insertion up to the muscle belly PT-OP-K Range of Motion Start: 09/12/18 16:01 Freq: Status: Active Protocol: Document 09/12/18 16:01 AMH (Rec: 09/12/18 16:28 AMH [email or web address]) Ankle and Foot Goniometric Range of Motion Ankle and Foot Measured in Degrees Left Active Ankle/Foot ROM WFL Yes Right Active Ankle/Foot ROM WFL Yes Testing Position Sitting Dorsiflexion with Knee Flexed 15 Dorsiflexion with Knee Extended 10 Plantarflexion 5 Inversion 30 Eversion 20 Ankle and Foot ROM Limitations ROM Limitations Soft Tissue Tightness Muscle Tone Pain Swelling Comments pain with AROM and PROM plantar flexion in the medial ankle and achilles tendon region, ( this did lessen following STM and gentle stretching of the achillies and tibialis posterior) PT-OP-M Strength Start: 09/12/18 16:45 Freq: Status: Active Protocol: Document 09/12/18 16:45 AMH (Rec: 09/12/18 16:46 AMH [email or web address]) Hip Strength Hip Manual Muscle Testing Left Abduction 4 Good Comments + gluteus medius drop with SLS Right Abduction 4 Good Comments + gluteus medius drop with SLS Ankle/Foot Strength Ankle and Foot Manual Muscle Testing Right Plantarflexion (S1) 3 Fair Inversion 3+ Fair+ Eversion (S1) 4- Good- Comments pain with resisted Plantar flexion PT-OP-Q Treatments Start: 09/12/18 16:01 Freq: Status: Active Protocol: Document 10/13/18 07:30 AMB (Rec: 10/13/18 10:18 AMB [email or web address]) Therapeutic Exercises Supine Exercises 2 Supine Exercise Name STEVIE calf stretching Side right Reps/Minutes hold 1-2 minutes 1 [address]ine Exercise Name [address] ankle ROM Side right Reps/Minutes 20 reps each Comments pain free ankle ROM Standing Exercises 2 Standing Exercise Name Heel raises Reps/Minutes x 15 reps Comments unilateral 1 Standing Exercise Name The [place]: gastrocsoleus Reps/Minutes x 15SH x 2 reps Comments pain free range Manual Therapy Treatment Soft Tissue Mobilization 2 Body Location ATFL Mobilization Type Cross-Friction 1 Body Location right posterior tibialis tendon and muscle Mobilization Type Myofascial Release Intensity/Depth Moderate Body Position Prone Joint Mobilizations 1 Joint talocrural Direction posterior Grade II Neuro Re-Education Treatment Balance Activities 2 Details single leg stance 1 Details wobble board Comments a/p and m/l Other Activities 1 Details instruction in superfeet options PT-OP-R Modalities Start: 09/12/18 16:01 Freq: Status: Active Protocol: Document 10/13/18 07:30 AMB (Rec: 10/13/18 10:24 AMB [email or web address]) Hot Pack/Cold Pack Treatment Cold Pack Location ankle Patient Position Supine Treatment Duration (minutes) 10 Patient Tolerance Good PT-OP-T Assessment and Plan Start: 09/12/18 16:01 Freq: Status: Active Protocol: Document 10/13/18 10:18 AMB (Rec: 10/13/18 10:21 AMB [email or web address]) Physical Therapy Assessment Assessment Summary Assessment Lateral and anterior pain diminishing well, medial pain continues with unstable surfaces. Physical Therapy Plan Next Visit Focus/Plan Next Note Type Treatment Note Next Visit Plan Continue to progress strength/ balance
--- NOTE | 2018-10-18 11:02 | PT.OTN ---
Current Diagnoses Sprain of unspecified ligament of right ankle, initial encounter (10/18/18) Physical Therapy Treatment Note PT-OP-A Visit Information Start: 09/12/18 16:01 Freq: Status: Active Protocol: Document 10/18/18 07:30 AMB (Rec: 10/18/18 07:33 AMB [id number]) Out-Patient Physical Therapy Visit Information Visit Information Visit Type Treatment Note Visit Start Time 07:30 Visit Stop Time 08:20 Total Visit Minutes 50 Visit Number 8 Number of RECRUITMENT DIRECTOR Visits 0 PT-OP-B Current Condition Start: 09/12/18 16:01 Freq: Status: Active Protocol: Document 09/12/18 16:01 AMH (Rec: 09/12/18 16:28 AMH [email or web address]) Current Condition History of Current Condition Onset Date 6 weeks ago History of Current Condition 33 year old female with history of chronic ankle sprains since highschool. She reports playing mulpiple sports in highschool including basketball and skiing/ snowboarding. Currently she sprains her ankle approximatley 5 times per year and it is most often her right ankle. This current time she was in her back yard kicking the ball to her dog when she stepped on a uneven surface and rolled her ankle. She noted that her symptoms were not getting better with ice so she made a MD appointment. She has had a MRI due to increased laxity of her ankle and Dr. Cleveland was concerned about her stability but the MRI was negative. Her chief complaint at this time is pain in the medial side of her foot starting at the arch and going behind her medial malleolus to the middle of her medial raygoza. 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 Prior Functional Status Baseline Function- Other history of ankle instability and ankle sprains since highschool Current Functional Impairments (Reported) Functional Limitations- Work/School difficulty with walking especially on uneven surfaces which she needs to do for her job Functional Limitations- Recreation/ unable to jump, land from a Hobbies jump, or perform cutting/ lateral movements due to pain PT-OP-C Subjective Start: 09/12/18 16:01 Freq: Status: Active Protocol: Document 10/18/18 07:30 AMB (Rec: 10/18/18 07:33 AMB [id number]) OP-PT Subjective Patient Comments Patient Comments Pt doing well, no major changes. PT-OP-D Balance Start: 09/12/18 16:01 Freq: Status: Active Protocol: Document 09/12/18 16:01 AMH (Rec: 09/12/18 16:28 AMH [email or web address]) OP-PT Balance Assessment Standing Balance Standing Balance Comments unable to perform single leg balance without support on the right due to pain + gluteus medius drop with SLS bilaterally Rogers Fall Scale Copyright Permission Ken PRADHAN, Ken RM, Matti SJ. Development of a scale to identify the fall- prone patient. Can J Aging 1989;8;366-7. Matthias Rogers (2009). Preventing patient falls. (2nd ed). [place]: [employer]. PT-OP-J Posture/Palpation/Skin Start: 09/12/18 16:01 Freq: Status: Active Protocol: Document 09/12/18 16:01 AMH (Rec: 09/12/18 16:28 [facility] [email or web address]) Palpation Assessment Location Three Palpation Location R achilles tendon Palpation Findings Soft Tissue Tightness Tenderness Two Palpation Location R ATFL Palpation Findings Edema Tenderness One Palpation Location R posterior tibialis tendon Palpation Findings Soft Tissue Tightness Muscle Guarding Trigger Point Palpation Details tenderness along the tibialis posterior from insertion up to the muscle belly PT-OP-K Range of Motion Start: 09/12/18 16:01 Freq: Status: Active Protocol: Document 09/12/18 16:01 AMH (Rec: 09/12/18 16:28 AMH [email or web address]) Ankle and Foot Goniometric Range of Motion Ankle and Foot Measured in Degrees Left Active Ankle/Foot ROM WFL Yes Right Active Ankle/Foot ROM WFL Yes Testing Position Sitting Dorsiflexion with Knee Flexed 15 Dorsiflexion with Knee Extended 10 Plantarflexion 5 Inversion 30 Eversion 20 Ankle and Foot ROM Limitations ROM Limitations Soft Tissue Tightness Muscle Tone Pain Swelling Comments pain with AROM and PROM plantar flexion in the medial ankle and achilles tendon region, ( this did lessen following STM and gentle stretching of the achillies and tibialis posterior) PT-OP-M Strength Start: 09/12/18 16:45 Freq: Status: Active Protocol: Document 09/12/18 16:45 AMH (Rec: 09/12/18 16:46 AMH [email or web address]) Hip Strength Hip Manual Muscle Testing Left Abduction 4 Good Comments + gluteus medius drop with SLS Right Abduction 4 Good Comments + gluteus medius drop with SLS Ankle/Foot Strength Ankle and Foot Manual Muscle Testing Right Plantarflexion (S1) 3 Fair Inversion 3+ Fair+ Eversion (S1) 4- Good- Comments pain with resisted Plantar flexion PT-OP-Q Treatments Start: 09/12/18 16:01 Freq: Status: Active Protocol: Document 10/18/18 07:30 AMB (Rec: 10/18/18 11:01 AMB [email or web address]) Gym Equipment Shuttle Balance 1 Details RED Reps/Duration 10 min Comments m/l, a/p strides stance Therapeutic Exercises Supine Exercises 2 Supine Exercise Name ARIE calf stretching Side right Reps/Minutes hold 1-2 minutes 1 Supine Exercise Name [address] ankle ROM Side right Reps/Minutes 20 reps each Comments with manual resistance Standing Exercises 2 Standing Exercise Name Heel raises Reps/Minutes x 15 reps Comments unilateral Manual Therapy Treatment Soft Tissue Mobilization 2 Body Location ATFL Mobilization Type Cross-Friction Joint Mobilizations 1 Joint talocrural Direction posterior Grade II Neuro Re-Education Treatment Balance Activities 2 Details single leg stance PT-OP-R Modalities Start: 09/12/18 16:01 Freq: Status: Active Protocol: Document 10/18/18 07:30 AMB (Rec: 10/18/18 08:15 AMB [id number]) Hot Pack/Cold Pack Treatment Cold Pack Location ankle Patient Position Supine Treatment Duration (minutes) 10 Patient Tolerance Good PT-OP-T Assessment and Plan Start: 09/12/18 16:01 Freq: Status: Active Protocol: Document 10/18/18 07:30 AMB (Rec: 10/18/18 08:15 AMB [id number]) Physical Therapy Assessment Assessment Summary Assessment Pt with stiffness around achiles after walking up [facility]. Physical Therapy Plan Next Visit Focus/Plan Next Note Type Treatment Note Next Visit Plan Progress HEP
--- NOTE | 2018-10-20 16:01 | PT.OTN ---
Current Diagnoses Sprain of unspecified ligament of right ankle, initial encounter (10/20/18) Physical Therapy Treatment Note PT-OP-A Visit Information Start: 09/12/18 16:01 Freq: Status: Active Protocol: Document 10/20/18 07:30 AMB (Rec: 10/20/18 07:38 AMB [id number]) Out-Patient Physical Therapy Visit Information Visit Information Visit Type Treatment Note Visit Start Time 07:30 Visit Stop Time 08:20 Total Visit Minutes 50 Visit Number 9 Number of PEARL DIGGER Visits 0 PT-OP-B Current Condition Start: 09/12/18 16:01 Freq: Status: Active Protocol: Document 09/12/18 16:01 AMH (Rec: 09/12/18 16:28 AMH [email or web address]) Current Condition History of Current Condition Onset Date 6 weeks ago History of Current Condition 33 year old female with history of chronic ankle sprains since highschool. She reports playing mulpiple sports in highschool including basketball and skiing/ snowboarding. Currently she sprains her ankle approximatley 5 times per year and it is most often her right ankle. This current time she was in her back yard kicking the ball to her dog when she stepped on a uneven surface and rolled her ankle. She noted that her symptoms were not getting better with ice so she made a MD appointment. She has had a MRI due to increased laxity of her ankle and Dr. Cleveland was concerned about her stability but the MRI was negative. Her chief complaint at this time is pain in the medial side of her foot starting at the arch and going behind her medial malleolus to the middle of her medial raygoza. 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 Prior Functional Status Baseline Function- Other history of ankle instability and ankle sprains since highschool Current Functional Impairments (Reported) Functional Limitations- Work/School difficulty with walking especially on uneven surfaces which she needs to do for her job Functional Limitations- Recreation/ unable to jump, land from a Hobbies jump, or perform cutting/ lateral movements due to pain PT-OP-C Subjective Start: 09/12/18 16:01 Freq: Status: Active Protocol: Document 10/20/18 07:30 AMB (Rec: 10/20/18 07:38 AMB [id number]) OP-PT Subjective Patient Comments Patient Comments Continues to feel most discomfort with plantarflexion , feels it at both sides of the achilles. PT-OP-D Balance Start: 09/12/18 16:01 Freq: Status: Active Protocol: Document 09/12/18 16:01 AMH (Rec: 09/12/18 16:28 AMH [email or web address]) OP-PT Balance Assessment Standing Balance Standing Balance Comments unable to perform single leg balance without support on the right due to pain + gluteus medius drop with SLS bilaterally Rogers Fall Scale Copyright Permission Ken PRADHAN, Ken RM, Matti SJ. Development of a scale to identify the fall- prone patient. Can J Aging 1989;8;366-7. Matthias Rogers (2009). Preventing patient falls. (2nd ed). [place]: [place]. PT-OP-J Posture/Palpation/Skin Start: 09/12/18 16:01 Freq: Status: Active Protocol: Document 09/12/18 16:01 AMH (Rec: 09/12/18 16:28 AMH [email or web address]) Palpation Assessment Location Three Palpation Location R achilles tendon Palpation Findings Soft Tissue Tightness Tenderness Two Palpation Location R ATFL Palpation Findings Edema Tenderness One Palpation Location R posterior tibialis tendon Palpation Findings Soft Tissue Tightness Muscle Guarding Trigger Point Palpation Details tenderness along the tibialis posterior from insertion up to the muscle belly PT-OP-K Range of Motion Start: 09/12/18 16:01 Freq: Status: Active Protocol: Document 09/12/18 16:01 AMH (Rec: 09/12/18 16:28 AMH [email or web address]) Ankle and Foot Goniometric Range of Motion Ankle and Foot Measured in Degrees Left Active Ankle/Foot ROM WFL Yes Right Active Ankle/Foot ROM WFL Yes Testing Position Sitting Dorsiflexion with Knee Flexed 15 Dorsiflexion with Knee Extended 10 Plantarflexion 5 Inversion 30 Eversion 20 Ankle and Foot ROM Limitations ROM Limitations Soft Tissue Tightness Muscle Tone Pain Swelling Comments pain with AROM and PROM plantar flexion in the medial ankle and achilles tendon region, ( this did lessen following STM and gentle stretching of the achillies and tibialis posterior) PT-OP-M Strength Start: 09/12/18 16:45 Freq: Status: Active Protocol: Document 09/12/18 16:45 AMH (Rec: 09/12/18 16:46 AMH [email or web address]) Hip Strength Hip Manual Muscle Testing Left Abduction 4 Good Comments + gluteus medius drop with SLS Right Abduction 4 Good Comments + gluteus medius drop with SLS Ankle/Foot Strength Ankle and Foot Manual Muscle Testing Right Plantarflexion (S1) 3 Fair Inversion 3+ Fair+ Eversion (S1) 4- Good- Comments pain with resisted Plantar flexion PT-OP-Q Treatments Start: 09/12/18 16:01 Freq: Status: Active Protocol: Document 10/20/18 07:30 AMB (Rec: 10/23/18 16:01 AMB [email or web address]) Gym Equipment Shuttle Balance 1 Details RED Reps/Duration 10 min Comments m/l, a/p strides stance Therapeutic Exercises Supine Exercises 3 Supine Exercise Name eversion/inversion isometrics Resistance #3 tband Reps/Minutes 5x10 2 Supine Exercise Name ARIE calf stretching Side right Reps/Minutes hold 1-2 minutes 1 Supine Exercise Name 4 way ankle ROM Side right Reps/Minutes 20 reps each Comments with manual resistance Standing Exercises 2 Standing Exercise Name Heel raises Reps/Minutes x 15 reps Comments unilateral Manual Therapy Treatment Soft Tissue Mobilization 2 Body Location ATFL Mobilization Type Cross-Friction 1 Body Location right posterior tibialis tendon and muscle Mobilization Type Myofascial Release Intensity/Depth Moderate Body Position Prone Joint Mobilizations 1 Joint talocrural Direction posterior Grade II Neuro Re-Education Treatment Balance Activities 2 Details single leg stance PT-OP-R Modalities Start: 09/12/18 16:01 Freq: Status: Active Protocol: Document 10/20/18 07:30 AMB (Rec: 10/23/18 16:01 AMB [email or web address]) Hot Pack/Cold Pack Treatment Cold Pack Location ankle Patient Position Supine Treatment Duration (minutes) 10 Patient Tolerance Good PT-OP-T Assessment and Plan Start: 09/12/18 16:01 Freq: Status: Active Protocol: Document 10/20/18 07:30 AMB (Rec: 10/23/18 16:01 AMB [email or web address]) Physical Therapy Assessment Assessment Summary Assessment Pt is improving but slowly. Resisted plantarflexion is still painful. Physical Therapy Plan Next Visit Focus/Plan Next Note Type Treatment Note Next Visit Plan Progress dynamic balance
--- NOTE | 2018-10-25 08:31 | PT.OTN ---
Current Diagnoses Sprain of unspecified ligament of right ankle, initial encounter (10/25/18) Physical Therapy Treatment Note PT-OP-A Visit Information Start: 09/12/18 16:01 Freq: Status: Active Protocol: Document 10/25/18 07:30 AMB (Rec: 10/25/18 07:35 AMB [id number]) Out-Patient Physical Therapy Visit Information Visit Information Visit Type Treatment Note Visit Start Time 07:30 Visit Stop Time 08:20 Total Visit Minutes 50 Visit Number 10 Number of FIBER ANALYST Visits 0 PT-OP-B Current Condition Start: 09/12/18 16:01 Freq: Status: Active Protocol: Document 09/12/18 16:01 AMH (Rec: 09/12/18 16:28 AMH [email or web address]) Current Condition History of Current Condition Onset Date 6 weeks ago History of Current Condition 33 year old female with history of chronic ankle sprains since highschool. She reports playing mulpiple sports in highschool including basketball and skiing/ snowboarding. Currently she sprains her ankle approximatley 5 times per year and it is most often her right ankle. This current time she was in her back yard kicking the ball to her dog when she stepped on a uneven surface and rolled her ankle. She noted that her symptoms were not getting better with ice so she made a MD appointment. She has had a MRI due to increased laxity of her ankle and Dr. Cleveland was concerned about her stability but the MRI was negative. Her chief complaint at this time is pain in the medial side of her foot starting at the arch and going behind her medial malleolus to the middle of her medial raygoza. 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 Prior Functional Status Baseline Function- Other history of ankle instability and ankle sprains since highschool Current Functional Impairments (Reported) Functional Limitations- Work/School difficulty with walking especially on uneven surfaces which she needs to do for her job Functional Limitations- Recreation/ unable to jump, land from a Hobbies jump, or perform cutting/ lateral movements due to pain PT-OP-C Subjective Start: 09/12/18 16:01 Freq: Status: Active Protocol: Document 10/25/18 07:30 AMB (Rec: 10/25/18 07:35 AMB [id number]) OP-PT Subjective Patient Comments Patient Comments Pt feels she is about 70-80% better. PT-OP-D Balance Start: 09/12/18 16:01 Freq: Status: Active Protocol: Document 09/12/18 16:01 AMH (Rec: 09/12/18 16:28 AMH [email or web address]) OP-PT Balance Assessment Standing Balance Standing Balance Comments unable to perform single leg balance without support on the right due to pain + gluteus medius drop with SLS bilaterally Rogers Fall Scale Copyright Permission Ken JM, Ken RM, Matti SJ. Development of a scale to identify the fall- prone patient. Can J Aging 1989;8;366-7. Matthias Rogers (2009). Preventing patient falls. (2nd ed). [place]: [place]. PT-OP-J Posture/Palpation/Skin Start: 09/12/18 16:01 Freq: Status: Active Protocol: Document 09/12/18 16:01 AMH (Rec: 09/12/18 16:28 AMH [email or web address]) Palpation Assessment Location Three Palpation Location R achilles tendon Palpation Findings Soft Tissue Tightness Tenderness Two Palpation Location R ATFL Palpation Findings Edema Tenderness One Palpation Location R posterior tibialis tendon Palpation Findings Soft Tissue Tightness Muscle Guarding Trigger Point Palpation Details tenderness along the tibialis posterior from insertion up to the muscle belly PT-OP-K Range of Motion Start: 09/12/18 16:01 Freq: Status: Active Protocol: Document 09/12/18 16:01 AMH (Rec: 09/12/18 16:28 AMH [email or web address]) Ankle and Foot Goniometric Range of Motion Ankle and Foot Measured in Degrees Left Active Ankle/Foot ROM WFL Yes Right Active Ankle/Foot ROM WFL Yes Testing Position Sitting Dorsiflexion with Knee Flexed 15 Dorsiflexion with Knee Extended 10 Plantarflexion 5 Inversion 30 Eversion 20 Ankle and Foot ROM Limitations ROM Limitations Soft Tissue Tightness Muscle Tone Pain Swelling Comments pain with AROM and PROM plantar flexion in the medial ankle and achilles tendon region, ( this did lessen following STM and gentle stretching of the achillies and tibialis posterior) PT-OP-M Strength Start: 09/12/18 16:45 Freq: Status: Active Protocol: Document 09/12/18 16:45 AMH (Rec: 09/12/18 16:46 AMH [email or web address]) Hip Strength Hip Manual Muscle Testing Left Abduction 4 Good Comments + gluteus medius drop with SLS Right Abduction 4 Good Comments + gluteus medius drop with SLS Ankle/Foot Strength Ankle and Foot Manual Muscle Testing Right Plantarflexion (S1) 3 Fair Inversion 3+ Fair+ Eversion (S1) 4- Good- Comments pain with resisted Plantar flexion PT-OP-Q Treatments Start: 09/12/18 16:01 Freq: Status: Active Protocol: Document 10/25/18 07:30 AMB (Rec: 10/25/18 08:31 AMB [email or web address]) Manual Therapy Treatment Soft Tissue Mobilization 2 Body Location ATFL Mobilization Type Cross-Friction 1 Body Location right posterior tibialis tendon and muscle Mobilization Type Myofascial Release Intensity/Depth Moderate Body Position Prone Joint Mobilizations 1 Joint talocrural Direction posterior Grade II Neuro Re-Education Treatment Balance Activities 2 Details single leg stance Comments BOSU ball PT-OP-R Modalities Start: 09/12/18 16:01 Freq: Status: Active Protocol: Document 10/25/18 07:30 AMB (Rec: 10/25/18 08:31 AMB [email or web address]) Hot Pack/Cold Pack Treatment Cold Pack Location ankle Patient Position Supine Treatment Duration (minutes) 10 Patient Tolerance Good PT-OP-T Assessment and Plan Start: 09/12/18 16:01 Freq: Status: Active Protocol: Document 10/25/18 07:30 AMB (Rec: 10/25/18 08:31 AMB [email or web address]) Physical Therapy Assessment Assessment Summary Assessment Pt interested in return to running. Has pain with heel strike. Could consider forefoot running, but needs to improve calf strength first. Physical Therapy Plan Next Visit Focus/Plan Next Note Type Treatment Note Next Visit Plan Progress dynamic balance, return to running
--- NOTE | 2018-10-31 08:36 | PT.OTN ---
Current Diagnoses Sprain of unspecified ligament of right ankle, initial encounter (10/31/18) Physical Therapy Treatment Note PT-OP-A Visit Information Start: 09/12/18 16:01 Freq: Status: Active Protocol: Document 10/31/18 07:30 AMB (Rec: 10/31/18 08:25 AMB [id number]) Out-Patient Physical Therapy Visit Information Visit Information Visit Type Treatment Note Visit Start Time 07:30 Visit Stop Time 08:20 Total Visit Minutes 50 Visit Number 11 Number of NATIONAL ACCOUNT DIRECTOR Visits 0 PT-OP-B Current Condition Start: 09/12/18 16:01 Freq: Status: Active Protocol: Document 09/12/18 16:01 AMH (Rec: 09/12/18 16:28 AMH [email or web address]) Current Condition History of Current Condition Onset Date 6 weeks ago History of Current Condition 33 year old female with history of chronic ankle sprains since highschool. She reports playing mulpiple sports in highschool including basketball and skiing/ snowboarding. Currently she sprains her ankle approximatley 5 times per year and it is most often her right ankle. This current time she was in her back yard kicking the ball to her dog when she stepped on a uneven surface and rolled her ankle. She noted that her symptoms were not getting better with ice so she made a MD appointment. She has had a MRI due to increased laxity of her ankle and Dr. Cleveland was concerned about her stability but the MRI was negative. Her chief complaint at this time is pain in the medial side of her foot starting at the arch and going behind her medial malleolus to the middle of her medial raygoza. 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 Prior Functional Status Baseline Function- Other history of ankle instability and ankle sprains since highschool Current Functional Impairments (Reported) Functional Limitations- Work/School difficulty with walking especially on uneven surfaces which she needs to do for her job Functional Limitations- Recreation/ unable to jump, land from a Hobbies jump, or perform cutting/ lateral movements due to pain PT-OP-C Subjective Start: 09/12/18 16:01 Freq: Status: Active Protocol: Document 10/31/18 07:30 AMB (Rec: 10/31/18 08:25 AMB [id number]) OP-PT Subjective Patient Comments Patient Comments Pt continues to notice pain with squatting PT-OP-D Balance Start: 09/12/18 16:01 Freq: Status: Active Protocol: Document 09/12/18 16:01 AMH (Rec: 09/12/18 16:28 AMH [email or web address]) OP-PT Balance Assessment Standing Balance Standing Balance Comments unable to perform single leg balance without support on the right due to pain + gluteus medius drop with SLS bilaterally Rogers Fall Scale Copyright Permission Ken PRADHAN, Ken RM, Matti SJ. Development of a scale to identify the fall- prone patient. Can J Aging 1989;8;366-7. Matthias Rogers (2009). Preventing patient falls. (2nd ed). [place]: [place]. PT-OP-J Posture/Palpation/Skin Start: 09/12/18 16:01 Freq: Status: Active Protocol: Document 09/12/18 16:01 AMH (Rec: 09/12/18 16:28 AMH [email or web address]) Palpation Assessment Location Three Palpation Location R achilles tendon Palpation Findings Soft Tissue Tightness Tenderness Two Palpation Location R ATFL Palpation Findings Edema Tenderness One Palpation Location R posterior tibialis tendon Palpation Findings Soft Tissue Tightness Muscle Guarding Trigger Point Palpation Details tenderness along the tibialis posterior from insertion up to the muscle belly PT-OP-K Range of Motion Start: 09/12/18 16:01 Freq: Status: Active Protocol: Document 09/12/18 16:01 AMH (Rec: 09/12/18 16:28 AMH [email or web address]) Ankle and Foot Goniometric Range of Motion Ankle and Foot Measured in Degrees Left Active Ankle/Foot ROM WFL Yes Right Active Ankle/Foot ROM WFL Yes Testing Position Sitting Dorsiflexion with Knee Flexed 15 Dorsiflexion with Knee Extended 10 Plantarflexion 5 Inversion 30 Eversion 20 Ankle and Foot ROM Limitations ROM Limitations Soft Tissue Tightness Muscle Tone Pain Swelling Comments pain with AROM and PROM plantar flexion in the medial ankle and achilles tendon region, ( this did lessen following STM and gentle stretching of the achillies and tibialis posterior) PT-OP-M Strength Start: 09/12/18 16:45 Freq: Status: Active Protocol: Document 09/12/18 16:45 AMH (Rec: 09/12/18 16:46 AMH [email or web address]) Hip Strength Hip Manual Muscle Testing Left Abduction 4 Good Comments + gluteus medius drop with SLS Right Abduction 4 Good Comments + gluteus medius drop with SLS Ankle/Foot Strength Ankle and Foot Manual Muscle Testing Right Plantarflexion (S1) 3 Fair Inversion 3+ Fair+ Eversion (S1) 4- Good- Comments pain with resisted Plantar flexion PT-OP-Q Treatments Start: 09/12/18 16:01 Freq: Status: Active Protocol: Document 10/31/18 07:30 AMB (Rec: 10/31/18 08:25 AMB [id number]) Therapeutic Exercises Supine Exercises 2 Supine Exercise Name ARIE calf stretching Side right Reps/Minutes hold 1-2 minutes 1 Supine Exercise Name [address] ankle ROM Side right Reps/Minutes 20 reps each Comments with manual resistance Standing Exercises 2 Standing Exercise Name Heel raises Reps/Minutes x 15 reps Comments unilateral 1 Standing Exercise Name squat Comments with manual assist for tc glid Manual Therapy Treatment Soft Tissue Mobilization 2 Body Location ATFL Mobilization Type Cross-Friction 1 Body Location right posterior tibialis tendon and muscle Mobilization Type Myofascial Release Intensity/Depth Moderate Body Position Prone Joint Mobilizations 1 Joint talocrural Direction posterior Grade II Neuro Re-Education Treatment Balance Activities 2 Details single leg stance Comments BOSU ball PT-OP-R Modalities Start: 09/12/18 16:01 Freq: Status: Active Protocol: Document 10/31/18 07:30 AMB (Rec: 10/31/18 08:25 AMB [id number]) Hot Pack/Cold Pack Treatment Cold Pack Location ankle Patient Position Supine Treatment Duration (minutes) 10 Patient Tolerance Good PT-OP-T Assessment and Plan Start: 09/12/18 16:01 Freq: Status: Active Protocol: Document 10/31/18 07:30 AMB (Rec: 10/31/18 08:35 AMB [id number]) Physical Therapy Assessment Assessment Summary Assessment Pt is doing well but to return to her high level activity will need to improve both PF ROM and strength. Pain at achilles continues to limit. Physical Therapy Plan Next Visit Focus/Plan Next Note Type Treatment Note Next Visit Plan Progress HEP at next visit as tolerated with higher level balance/strengthening.
--- NOTE | 2018-11-02 13:09 | PT.OTN ---
Current Diagnoses Sprain of unspecified ligament of right ankle, initial encounter (11/02/18) Physical Therapy Treatment Note PT-OP-A Visit Information Start: 09/12/18 16:01 Freq: Status: Active Protocol: Document 11/02/18 07:30 AMB (Rec: 11/02/18 13:08 AMB [email or web address]) Out-Patient Physical Therapy Visit Information Visit Information Visit Type Treatment Note Visit Start Time 07:30 Visit Stop Time 08:25 Total Visit Minutes 55 Visit Number 12 Number of IRRIGATION PUMP INSTALLER Visits 0 PT-OP-B Current Condition Start: 09/12/18 16:01 Freq: Status: Active Protocol: Document 09/12/18 16:01 AMH (Rec: 09/12/18 16:28 AMH [email or web address]) Current Condition History of Current Condition Onset Date 6 weeks ago History of Current Condition 33 year old female with history of chronic ankle sprains since highschool. She reports playing mulpiple sports in highschool including basketball and skiing/ snowboarding. Currently she sprains her ankle approximatley 5 times per year and it is most often her right ankle. This current time she was in her back yard kicking the ball to her dog when she stepped on a uneven surface and rolled her ankle. She noted that her symptoms were not getting better with ice so she made a MD appointment. She has had a MRI due to increased laxity of her ankle and Dr. Cleveland was concerned about her stability but the MRI was negative. Her chief complaint at this time is pain in the medial side of her foot starting at the arch and going behind her medial malleolus to the middle of her medial raygoza. 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 Prior Functional Status Baseline Function- Other history of ankle instability and ankle sprains since highschool Current Functional Impairments (Reported) Functional Limitations- Work/School difficulty with walking especially on uneven surfaces which she needs to do for her job Functional Limitations- Recreation/ unable to jump, land from a Hobbies jump, or perform cutting/ lateral movements due to pain PT-OP-C Subjective Start: 09/12/18 16:01 Freq: Status: Active Protocol: Document 11/02/18 07:30 AMB (Rec: 11/02/18 13:08 AMB [email or web address]) OP-PT Subjective Patient Comments Patient Comments Pt with stiffness after last PT session, but otherwise did ok. PT-OP-D Balance Start: 09/12/18 16:01 Freq: Status: Active Protocol: Document 09/12/18 16:01 AMH (Rec: 09/12/18 16:28 AMH [email or web address]) OP-PT Balance Assessment Standing Balance Standing Balance Comments unable to perform single leg balance without support on the right due to pain + gluteus medius drop with SLS bilaterally Rogers Fall Scale Copyright Permission Ken PRADHAN, Ken RM, Matti SJ. Development of a scale to identify the fall- prone patient. Can J Aging 1989;8;366-7. Matthias Rogers (2009). Preventing patient falls. (2nd ed). [place]: [employer]. PT-OP-J Posture/Palpation/Skin Start: 09/12/18 16:01 Freq: Status: Active Protocol: Document 09/12/18 16:01 AMH (Rec: 09/12/18 16:28 AMH [email or web address]) Palpation Assessment Location Three Palpation Location R achilles tendon Palpation Findings Soft Tissue Tightness Tenderness Two Palpation Location R ATFL Palpation Findings Edema Tenderness One Palpation Location R posterior tibialis tendon Palpation Findings Soft Tissue Tightness Muscle Guarding Trigger Point Palpation Details tenderness along the tibialis posterior from insertion up to the muscle belly PT-OP-K Range of Motion Start: 09/12/18 16:01 Freq: Status: Active Protocol: Document 09/12/18 16:01 AMH (Rec: 09/12/18 16:28 AMH [email or web address]) Ankle and Foot Goniometric Range of Motion Ankle and Foot Measured in Degrees Left Active Ankle/Foot ROM WFL Yes Right Active Ankle/Foot ROM WFL Yes Testing Position Sitting Dorsiflexion with Knee Flexed 15 Dorsiflexion with Knee Extended 10 Plantarflexion 5 Inversion 30 Eversion 20 Ankle and Foot ROM Limitations ROM Limitations Soft Tissue Tightness Muscle Tone Pain Swelling Comments pain with AROM and PROM plantar flexion in the medial ankle and achilles tendon region, ( this did lessen following STM and gentle stretching of the achillies and tibialis posterior) PT-OP-M Strength Start: 09/12/18 16:45 Freq: Status: Active Protocol: Document 09/12/18 16:45 AMH (Rec: 09/12/18 16:46 AMH [email or web address]) Hip Strength Hip Manual Muscle Testing Left Abduction 4 Good Comments + gluteus medius drop with SLS Right Abduction 4 Good Comments + gluteus medius drop with SLS Ankle/Foot Strength Ankle and Foot Manual Muscle Testing Right Plantarflexion (S1) 3 Fair Inversion 3+ Fair+ Eversion (S1) 4- Good- Comments pain with resisted Plantar flexion PT-OP-Q Treatments Start: 09/12/18 16:01 Freq: Status: Active Protocol: Document 11/02/18 07:30 AMB (Rec: 11/02/18 13:08 AMB [email or web address]) Therapeutic Exercises Supine Exercises 2 Supine Exercise Name ARIE calf stretching Side right Reps/Minutes hold 1-2 minutes 1 Supine Exercise Name 4 way ankle ROM Side right Reps/Minutes 20 reps each Comments with manual resistance Standing Exercises 2 Standing Exercise Name Heel raises Reps/Minutes x 15 reps Comments unilateral 1 Standing Exercise Name squat Comments with heel raise Manual Therapy Treatment Soft Tissue Mobilization 1 Body Location right posterior tibialis tendon and muscle Mobilization Type Myofascial Release Intensity/Depth Moderate Body Position Prone Joint Mobilizations 1 Joint talocrural Direction posterior Grade III Manual Techniques 1 Type contract relax Comments end range PF and end range DF Neuro Re-Education Treatment Balance Activities 2 Details single leg stance Comments BOSU ball PT-OP-R Modalities Start: 09/12/18 16:01 Freq: Status: Active Protocol: Document 11/02/18 07:30 AMB (Rec: 11/02/18 13:09 AMB [email or web address]) Hot Pack/Cold Pack Treatment Cold Pack Location ankle Patient Position Supine Treatment Duration (minutes) 10 Patient Tolerance Good PT-OP-T Assessment and Plan Start: 09/12/18 16:01 Freq: Status: Active Protocol: Document 11/02/18 07:30 AMB (Rec: 11/02/18 13:08 AMB [email or web address]) Physical Therapy Assessment Assessment Summary Assessment End range continues to be painful. Pt is seeing ortho tomorrow. Physical Therapy Plan Next Visit Focus/Plan Next Note Type Treatment Note Next Visit Plan Progress HEP at next visit as tolerated with higher level balance/strengthening.
--- NOTE | 2018-11-17 16:18 | PT.OTN ---
Current Diagnoses Unspecified disorder of synovium and tendon, unspecified ankle and foot (11/17/18) Other enthesopathy of unspecified foot (11/17/18) Sprain of unspecified ligament of right ankle, initial encounter (11/17/18) Sprain of other ligament of right ankle, subsequent encounter (11/17/18) Physical Therapy Treatment Note PT-OP-A Visit Information Start: 09/12/18 16:01 Freq: Status: Active Protocol: Document 11/17/18 14:30 AMB (Rec: 11/17/18 16:07 AMB [email or web address]) Out-Patient Physical Therapy Visit Information Visit Information Visit Type Progress Note Visit Start Time 14:30 Visit Stop Time 15:15 Total Visit Minutes 45 Visit Number 13 PT-OP-B Current Condition Start: 09/12/18 16:01 Freq: Status: Active Protocol: Document 09/12/18 16:01 AMH (Rec: 09/12/18 16:28 AMH [email or web address]) Current Condition History of Current Condition Onset Date 6 weeks ago History of Current Condition 33 year old female with history of chronic ankle sprains since [employer]. She reports playing mulpiple sports in [employer] including basketball and skiing/ snowboarding. Currently she sprains her ankle approximatley 5 times per year and it is most often her right ankle. This current time she was in her back yard kicking the ball to her dog when she stepped on a uneven surface and rolled her ankle. She noted that her symptoms were not getting better with ice so she made a MD appointment. She has had a MRI due to increased laxity of her ankle and Dr. Cleveland was concerned about her stability but the MRI was negative. Her chief complaint at this time is pain in the medial side of her foot starting at the arch and going behind her medial malleolus to the middle of her medial raygoza. 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 Prior Functional Status Baseline Function- Other history of ankle instability and ankle sprains since [employer] Current Functional Impairments (Reported) Functional Limitations- Work/School difficulty with walking especially on uneven surfaces which she needs to do for her job Functional Limitations- Recreation/ unable to jump, land from a Hobbies jump, or perform cutting/ lateral movements due to pain PT-OP-C Subjective Start: 09/12/18 16:01 Freq: Status: Active Protocol: Document 11/17/18 14:30 AMB (Rec: 11/17/18 16:07 AMB [email or web address]) OP-PT Subjective Patient Comments Patient Comments Pt saw ortho who is concerned about her posterior tibialis tendonitis, but otherwise is encouraging continued PT. PT-OP-D Balance Start: 09/12/18 16:01 Freq: Status: Active Protocol: Document 09/12/18 16:01 AMH (Rec: 09/12/18 16:28 AMH [email or web address]) OP-PT Balance Assessment Standing Balance Standing Balance Comments unable to perform single leg balance without support on the right due to pain + gluteus medius drop with SLS bilaterally Rogers Fall Scale Copyright Permission Ken PRADHAN, Ken RM, Matti SJ. Development of a scale to identify the fall- prone patient. Can J Aging 1989;8;366-7. Matthias Rogers (2009). Preventing patient falls. (2nd ed). [place]: [employer]. PT-OP-J Posture/Palpation/Skin Start: 09/12/18 16:01 Freq: Status: Active Protocol: Document 09/12/18 16:01 AMH (Rec: 09/12/18 16:28 AMH [email or web address]) Palpation Assessment Location Three Palpation Location R achilles tendon Palpation Findings Soft Tissue Tightness Tenderness Two Palpation Location R ATFL Palpation Findings Edema Tenderness One Palpation Location R posterior tibialis tendon Palpation Findings Soft Tissue Tightness Muscle Guarding Trigger Point Palpation Details tenderness along the tibialis posterior from insertion up to the muscle belly PT-OP-K Range of Motion Start: 09/12/18 16:01 Freq: Status: Active Protocol: Document 09/12/18 16:01 AMH (Rec: 09/12/18 16:28 AMH [email or web address]) Ankle and Foot Goniometric Range of Motion Ankle and Foot Measured in Degrees Left Active Ankle/Foot ROM WFL Yes Right Active Ankle/Foot ROM WFL Yes Testing Position Sitting Dorsiflexion with Knee Flexed 15 Dorsiflexion with Knee Extended 10 Plantarflexion 5 Inversion 30 Eversion 20 Ankle and Foot ROM Limitations ROM Limitations Soft Tissue Tightness Muscle Tone Pain Swelling Comments pain with AROM and PROM plantar flexion in the medial ankle and achilles tendon region, ( this did lessen following STM and gentle stretching of the achillies and tibialis posterior) PT-OP-M Strength Start: 09/12/18 16:45 Freq: Status: Active Protocol: Document 09/12/18 16:45 AMH (Rec: 09/12/18 16:46 AMH [email or web address]) Hip Strength Hip Manual Muscle Testing Left Abduction 4 Good Comments + gluteus medius drop with SLS Right Abduction 4 Good Comments + gluteus medius drop with SLS Ankle/Foot Strength Ankle and Foot Manual Muscle Testing Right Plantarflexion (S1) 3 Fair Inversion 3+ Fair+ Eversion (S1) 4- Good- Comments pain with resisted Plantar flexion PT-OP-Q Treatments Start: 09/12/18 16:01 Freq: Status: Active Protocol: Document 11/17/18 14:30 AMB (Rec: 11/17/18 16:18 AMB [email or web address]) Therapeutic Exercises Supine Exercises 3 Supine Exercise Name eversion/inversion isometrics Resistance #3 tband Reps/Minutes 5x10 2 Supine Exercise Name ARIE calf stretching Side right Reps/Minutes hold 1-2 minutes Standing Exercises 2 Standing Exercise Name Heel raises Reps/Minutes x 15 reps Comments unilateral 1 Standing Exercise Name squat Comments with heel raise Neuro Re-Education Treatment Balance Activities 2 Details single leg stance Comments BOSU ball 1 Details single leg Comments with star taps PT-OP-R Modalities Start: 09/12/18 16:01 Freq: Status: Active Protocol: Document 11/17/18 14:30 AMB (Rec: 11/17/18 16:18 AMB [email or web address]) Hot Pack/Cold Pack Treatment Cold Pack Location ankle Patient Position Supine Treatment Duration (minutes) 10 Patient Tolerance Good PT-OP-T Assessment and Plan Start: 09/12/18 16:01 Freq: Status: Active Protocol: Document 11/17/18 14:30 AMB (Rec: 11/17/18 16:07 AMB [email or web address]) Physical Therapy Assessment Goals Four Impairment decreased strength of the right ankle Custodial Goal (LTG) improve ankle strength to 5/5 for improved ankle support and to help prevent further sprains from occuring LTG Duration 11/17/18: progress made, weakness in inversion Three Impairment pain rated 4/10 right ankle made worse with walking and hiking activities. Sustainable Development Policy Analyst Goal (LTG) Heidy is able to return to hiking and walking with improve stability and decreased pain LTG Duration 11/17/18: pt has returned to hiking, but it is painful Two Impairment pain with SLS activity and loss of balance on the right Sustainable Development Policy Analyst Goal (LTG) Heidy is able to stand single leg stance on the right without pain for 10-20 seconds LTG Duration 11/17/18: painful One Impairment pain with ankle ROM into plantar flexion Short Term Goal (STG) Heidy is able to perform full painfree ROM into plantar flexion without any c/o pain in the medial ankle STG Duration 11/17/18: end range pain only Assessment Summary Assessment Pt is showing better range of motion and strength. Walking 6 miles is painful by the last mile. Physical Therapy Plan Frequency and Duration Frequency of Treatment 1x/Week Duration of Treatment 8 weeks Plan of Care Start Date 11/17/18 Plan of Care End Date 01/12/19 Therapeutic Interventions Therapeutic Interventions Balance Training Home Exercise Program Manual Therapy Patient/Caregiver Education Soft Tissue Mobilization Taping Therapeutic Exercises Modalities Cold Pack/Ice Massage Ultrasound Next Visit Focus/Plan Next Note Type Treatment Note Next Visit Plan Progress HEP at next visit as tolerated with higher level balance/strengthening.
--- NOTE | 2018-11-17 16:19 | PT.OPPOC ---
Current Diagnoses Unspecified disorder of synovium and tendon, unspecified ankle and foot (11/17/18) Other enthesopathy of unspecified foot (11/17/18) Sprain of unspecified ligament of right ankle, initial encounter (11/17/18) Sprain of other ligament of right ankle, subsequent encounter (11/17/18) Provider Visit Care Team Role Provider Type Milagros Haider DO Primary Care Provider Physician Specialty: Family Practice Address: [address] [place] [address], [id number] Email: [email or web address] Dudley Cleveland MD Attending Provider Physician Specialty: Orthopedic Surgery Address: [address] [place] [address], [id number] Email: [email or web address] Plan Of Care PT-OP-T Assessment and Plan Start: 09/12/18 16:01 Freq: Status: Active Protocol: Document 11/17/18 14:30 AMB (Rec: 11/17/18 16:07 AMB [email or web address]) Physical Therapy Assessment Goals Four Impairment decreased strength of the right ankle [facility] Goal (LTG) improve ankle strength to 5/5 for improved ankle support and to help prevent further sprains from occuring LTG Duration 11/17/18: progress made, weakness in inversion Three Impairment pain rated 4/10 right ankle made worse with walking and hiking activities. Treatment Plant Operator Goal (LTG) Heidy is able to return to hiking and walking with improve stability and decreased pain LTG Duration 11/17/18: pt has returned to hiking, but it is painful Two Impairment pain with SLS activity and loss of balance on the right [facility] Goal (LTG) Heidy is able to stand single leg stance on the right without pain for 10-20 seconds LTG Duration 11/17/18: painful One Impairment pain with ankle ROM into plantar flexion Short Term Goal (STG) Heidy is able to perform full painfree ROM into plantar flexion without any c/o pain in the medial ankle STG Duration 11/17/18: end range pain only Assessment Summary Assessment Pt is showing better range of motion and strength. Walking 6 miles is painful by the last mile. Physical Therapy Plan Frequency and Duration Frequency of Treatment 1x/Week Duration of Treatment 8 weeks Plan of Care Start Date 11/17/18 Plan of Care End Date 01/12/19 Therapeutic Interventions Therapeutic Interventions Balance Training Home Exercise Program Manual Therapy Patient/Caregiver Education Soft Tissue Mobilization Taping Therapeutic Exercises Modalities Cold Pack/Ice Massage Ultrasound Next Visit Focus/Plan Next Note Type Treatment Note Next Visit Plan Progress HEP at next visit as tolerated with higher level balance/strengthening. Plan of Care Dates Plan of Care Start Date 11/17/18 Plan of Care End Date 01/12/19 Please Sign and Return: I have reviewed this Plan of Care and certify that the skilled therapy services above are required to meet the patient?s needs. Physician Signature Date Printed Name and Credentials Clinical Instructor Signature Printed Name and Credentials
--- NOTE | 2018-11-29 13:08 | PT.OTN ---
Current Diagnoses Unspecified disorder of synovium and tendon, unspecified ankle and foot (11/29/18) Other enthesopathy of unspecified foot (11/29/18) Sprain of unspecified ligament of right ankle, initial encounter (11/29/18) Sprain of other ligament of right ankle, subsequent encounter (11/29/18) Physical Therapy Treatment Note PT-OP-A Visit Information Start: 09/12/18 16:01 Freq: Status: Active Protocol: Document 11/29/18 08:15 AMB (Rec: 11/29/18 13:04 AMB [email or web address]) Out-Patient Physical Therapy Visit Information Visit Information Visit Type Treatment Note Visit Start Time 08:15 Visit Stop Time 09:00 Total Visit Minutes 45 Visit Number 14 PT-OP-B Current Condition Start: 09/12/18 16:01 Freq: Status: Active Protocol: Document 09/12/18 16:01 AMH (Rec: 09/12/18 16:28 AMH [email or web address]) Current Condition History of Current Condition Onset Date 6 weeks ago History of Current Condition 33 year old female with history of chronic ankle sprains since [employer]. She reports playing mulpiple sports in [employer] including basketball and skiing/ snowboarding. Currently she sprains her ankle approximatley 5 times per year and it is most often her right ankle. This current time she was in her back yard kicking the ball to her dog when she stepped on a uneven surface and rolled her ankle. She noted that her symptoms were not getting better with ice so she made a MD appointment. She has had a MRI due to increased laxity of her ankle and Dr. Cleveland was concerned about her stability but the MRI was negative. Her chief complaint at this time is pain in the medial side of her foot starting at the arch and going behind her medial malleolus to the middle of her medial raygoza. 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 Prior Functional Status Baseline Function- Other history of ankle instability and ankle sprains since [employer] Current Functional Impairments (Reported) Functional Limitations- Work/School difficulty with walking especially on uneven surfaces which she needs to do for her job Functional Limitations- Recreation/ unable to jump, land from a Hobbies jump, or perform cutting/ lateral movements due to pain PT-OP-C Subjective Start: 09/12/18 16:01 Freq: Status: Active Protocol: Document 11/29/18 08:15 AMB (Rec: 11/29/18 13:04 AMB [email or web address]) OP-PT Subjective Patient Comments Patient Comments Pt got inserts and they are working well. She continues to have the most pain with closed chain dorsiflexion. PT-OP-D Balance Start: 09/12/18 16:01 Freq: Status: Active Protocol: Document 09/12/18 16:01 AMH (Rec: 09/12/18 16:28 AMH [email or web address]) OP-PT Balance Assessment Standing Balance Standing Balance Comments unable to perform single leg balance without support on the right due to pain + gluteus medius drop with SLS bilaterally Rogers Fall Scale Copyright Permission Ken PRADHAN, Ken RM, Matti SJ. Development of a scale to identify the fall- prone patient. Can J Aging 1989;8;366-7. Matthias Rogers (2009). Preventing patient falls. (2nd ed). [place]: [employer]. PT-OP-J Posture/Palpation/Skin Start: 09/12/18 16:01 Freq: Status: Active Protocol: Document 09/12/18 16:01 AMH (Rec: 09/12/18 16:28 AMH [email or web address]) Palpation Assessment Location Three Palpation Location R achilles tendon Palpation Findings Soft Tissue Tightness Tenderness Two Palpation Location R ATFL Palpation Findings Edema Tenderness One Palpation Location R posterior tibialis tendon Palpation Findings Soft Tissue Tightness Muscle Guarding Trigger Point Palpation Details tenderness along the tibialis posterior from insertion up to the muscle belly PT-OP-K Range of Motion Start: 09/12/18 16:01 Freq: Status: Active Protocol: Document 09/12/18 16:01 AMH (Rec: 09/12/18 16:28 AMH [email or web address]) Ankle and Foot Goniometric Range of Motion Ankle and Foot Measured in Degrees Left Active Ankle/Foot ROM WFL Yes Right Active Ankle/Foot ROM WFL Yes Testing Position Sitting Dorsiflexion with Knee Flexed 15 Dorsiflexion with Knee Extended 10 Plantarflexion 5 Inversion 30 Eversion 20 Ankle and Foot ROM Limitations ROM Limitations Soft Tissue Tightness Muscle Tone Pain Swelling Comments pain with AROM and PROM plantar flexion in the medial ankle and achilles tendon region, ( this did lessen following STM and gentle stretching of the achillies and tibialis posterior) PT-OP-M Strength Start: 09/12/18 16:45 Freq: Status: Active Protocol: Document 09/12/18 16:45 AMH (Rec: 09/12/18 16:46 AMH [email or web address]) Hip Strength Hip Manual Muscle Testing Left Abduction 4 Good Comments + gluteus medius drop with SLS Right Abduction 4 Good Comments + gluteus medius drop with SLS Ankle/Foot Strength Ankle and Foot Manual Muscle Testing Right Plantarflexion (S1) 3 Fair Inversion 3+ Fair+ Eversion (S1) 4- Good- Comments pain with resisted Plantar flexion PT-OP-Q Treatments Start: 09/12/18 16:01 Freq: Status: Active Protocol: Document 11/29/18 08:15 AMB (Rec: 11/29/18 13:04 AMB [email or web address]) Gym Equipment Shuttle Recovery Bilateral Squats Resistance 50 Reps/Time 4 minutes Therapeutic Exercises Supine Exercises 2 Supine Exercise Name ARIE calf stretching Side right Reps/Minutes hold 1-2 minutes Standing Exercises 2 Standing Exercise Name Heel raises Reps/Minutes x 15 reps Comments unilateral 1 Standing Exercise Name squat Manual Therapy Treatment Soft Tissue Mobilization 1 Body Location right posterior tibialis tendon and muscle Mobilization Type Myofascial Release Intensity/Depth Moderate Body Position Prone PT-OP-R Modalities Start: 09/12/18 16:01 Freq: Status: Active Protocol: Document 11/29/18 08:15 AMB (Rec: 11/29/18 13:08 AMB [email or web address]) Hot Pack/Cold Pack Treatment Cold Pack Location ankle Patient Position Supine Treatment Duration (minutes) 10 Patient Tolerance Good PT-OP-T Assessment and Plan Start: 09/12/18 16:01 Freq: Status: Active Protocol: Document 11/29/18 08:15 AMB (Rec: 11/29/18 13:08 AMB [email or web address]) Physical Therapy Assessment Progress Towards Goals Progress Towards Goals Progressing Toward Goals Assessment Summary Assessment Closed chain dorsiflexion continues to be painful, encouraged continued strengthening, into squatting. Physical Therapy Plan Next Visit Focus/Plan Next Note Type Treatment Note Next Visit Plan Progress HEP at next visit as tolerated with higher level balance/strengthening.
--- NOTE | 2018-12-20 16:44 | PT.OTN ---
Current Diagnoses Unspecified disorder of synovium and tendon, unspecified ankle and foot (12/20/18) Other enthesopathy of unspecified foot (12/20/18) Sprain of unspecified ligament of right ankle, initial encounter (12/20/18) Sprain of other ligament of right ankle, subsequent encounter (12/20/18) Physical Therapy Treatment Note PT-OP-A Visit Information Start: 09/12/18 16:01 Freq: Status: Active Protocol: Document 12/20/18 07:30 AMB (Rec: 12/20/18 09:09 AMB [id number]) Out-Patient Physical Therapy Visit Information Visit Information Visit Type Treatment Note Visit Start Time 07:30 Visit Stop Time 08:15 Total Visit Minutes 45 Visit Number 15 PT-OP-B Current Condition Start: 09/12/18 16:01 Freq: Status: Active Protocol: Document 09/12/18 16:01 AMH (Rec: 09/12/18 16:28 AMH [email or web address]) Current Condition History of Current Condition Onset Date 6 weeks ago History of Current Condition 33 year old female with history of chronic ankle sprains since highschool. She reports playing mulpiple sports in highschool including basketball and skiing/ snowboarding. Currently she sprains her ankle approximatley 5 times per year and it is most often her right ankle. This current time she was in her back yard kicking the ball to her dog when she stepped on a uneven surface and rolled her ankle. She noted that her symptoms were not getting better with ice so she made a MD appointment. She has had a MRI due to increased laxity of her ankle and Dr. Cleveland was concerned about her stability but the MRI was negative. Her chief complaint at this time is pain in the medial side of her foot starting at the arch and going behind her medial malleolus to the middle of her medial raygoza. 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 Prior Functional Status Baseline Function- Other history of ankle instability and ankle sprains since [employer] Current Functional Impairments (Reported) Functional Limitations- Work/School difficulty with walking especially on uneven surfaces which she needs to do for her job Functional Limitations- Recreation/ unable to jump, land from a Hobbies jump, or perform cutting/ lateral movements due to pain PT-OP-C Subjective Start: 09/12/18 16:01 Freq: Status: Active Protocol: Document 12/20/18 16:36 AMB (Rec: 12/20/18 16:44 AMB [email or web address]) OP-PT Subjective Patient Comments Patient Comments Pt feels that overall she is improving. Less acute pain, but still feels dull ache. PT-OP-D Balance Start: 09/12/18 16:01 Freq: Status: Active Protocol: Document 09/12/18 16:01 AMH (Rec: 09/12/18 16:28 AMH [email or web address]) OP-PT Balance Assessment Standing Balance Standing Balance Comments unable to perform single leg balance without support on the right due to pain + gluteus medius drop with SLS bilaterally Rogers Fall Scale Copyright Permission Ken PRADHAN, Ken RM, Matti SJ. Development of a scale to identify the fall- prone patient. Can J Aging 1989;8;366-7. Matthias Rogers (2009). Preventing patient falls. (2nd ed). [place]: [employer]. PT-OP-J Posture/Palpation/Skin Start: 09/12/18 16:01 Freq: Status: Active Protocol: Document 09/12/18 16:01 AMH (Rec: 09/12/18 16:28 AMH [email or web address]) Palpation Assessment Location Three Palpation Location R achilles tendon Palpation Findings Soft Tissue Tightness Tenderness Two Palpation Location R ATFL Palpation Findings Edema Tenderness One Palpation Location R posterior tibialis tendon Palpation Findings Soft Tissue Tightness Muscle Guarding Trigger Point Palpation Details tenderness along the tibialis posterior from insertion up to the muscle belly PT-OP-K Range of Motion Start: 09/12/18 16:01 Freq: Status: Active Protocol: Document 09/12/18 16:01 AMH (Rec: 09/12/18 16:28 AMH [email or web address]) Ankle and Foot Goniometric Range of Motion Ankle and Foot Measured in Degrees Left Active Ankle/Foot ROM WFL Yes Right Active Ankle/Foot ROM WFL Yes Testing Position Sitting Dorsiflexion with Knee Flexed 15 Dorsiflexion with Knee Extended 10 Plantarflexion 5 Inversion 30 Eversion 20 Ankle and Foot ROM Limitations ROM Limitations Soft Tissue Tightness Muscle Tone Pain Swelling Comments pain with AROM and PROM plantar flexion in the medial ankle and achilles tendon region, ( this did lessen following STM and gentle stretching of the achillies and tibialis posterior) PT-OP-M Strength Start: 09/12/18 16:45 Freq: Status: Active Protocol: Document 09/12/18 16:45 AMH (Rec: 09/12/18 16:46 AMH [email or web address]) Hip Strength Hip Manual Muscle Testing Left Abduction 4 Good Comments + gluteus medius drop with SLS Right Abduction 4 Good Comments + gluteus medius drop with SLS Ankle/Foot Strength Ankle and Foot Manual Muscle Testing Right Plantarflexion (S1) 3 Fair Inversion 3+ Fair+ Eversion (S1) 4- Good- Comments pain with resisted Plantar flexion PT-OP-Q Treatments Start: 09/12/18 16:01 Freq: Status: Active Protocol: Document 12/20/18 16:36 AMB (Rec: 12/20/18 16:44 AMB [email or web address]) Therapeutic Exercises Supine Exercises 2 Supine Exercise Name ARIE calf stretching Side right Reps/Minutes hold 1-2 minutes Standing Exercises 6 Standing Exercise Name single leg squat 5 Standing Exercise Name single leg lift Resistance 0 4 Standing Exercise Name skipping 3 Standing Exercise Name hopping Comments m/l and a/p 2 Standing Exercise Name Heel raises Reps/Minutes 2x 15 reps Comments unilateral 1 Standing Exercise Name squat Comments with and without heel raise PT-OP-R Modalities Start: 09/12/18 16:01 Freq: Status: Active Protocol: Document 11/29/18 08:15 AMB (Rec: 11/29/18 13:08 AMB [email or web address]) Hot Pack/Cold Pack Treatment Cold Pack Location ankle Patient Position Supine Treatment Duration (minutes) 10 Patient Tolerance Good PT-OP-T Assessment and Plan Start: 09/12/18 16:01 Freq: Status: Active Protocol: Document 12/20/18 16:36 AMB (Rec: 12/20/18 16:44 AMB [email or web address]) Physical Therapy Assessment Assessment Summary Assessment Pt is overall improving, but would recommend agility training before return to running. Discussed gentle jog walk program as an option. HEP to work on hop, skip, and closed chain dorisflexion. Physical Therapy Plan Next Visit Focus/Plan Next Note Type Treatment Note Next Visit Plan Progress HEP at next visit as tolerated with higher level balance/strengthening.
--- NOTE | 2019-01-02 13:01 | PT.OTN ---
Current Diagnoses Unspecified disorder of synovium and tendon, unspecified ankle and foot (01/02/19) Other enthesopathy of unspecified foot (01/02/19) Sprain of unspecified ligament of right ankle, initial encounter (01/02/19) Sprain of other ligament of right ankle, subsequent encounter (01/02/19) Physical Therapy Treatment Note PT-OP-A Visit Information Start: 09/12/18 16:01 Freq: Status: Active Protocol: Document 01/02/19 07:30 AMB (Rec: 01/02/19 07:40 AMB [id number]) Out-Patient Physical Therapy Visit Information Visit Information Visit Type Treatment Note Visit Start Time 07:30 Visit Stop Time 08:15 Total Visit Minutes 45 Visit Number 16 PT-OP-B Current Condition Start: 09/12/18 16:01 Freq: Status: Active Protocol: Document 09/12/18 16:01 AMH (Rec: 09/12/18 16:28 AMH [email or web address]) Current Condition History of Current Condition Onset Date 6 weeks ago History of Current Condition 33 year old female with history of chronic ankle sprains since highschool. She reports playing mulpiple sports in highschool including basketball and skiing/ snowboarding. Currently she sprains her ankle approximatley 5 times per year and it is most often her right ankle. This current time she was in her back yard kicking the ball to her dog when she stepped on a uneven surface and rolled her ankle. She noted that her symptoms were not getting better with ice so she made a MD appointment. She has had a MRI due to increased laxity of her ankle and Dr. Cleveland was concerned about her stability but the MRI was negative. Her chief complaint at this time is pain in the medial side of her foot starting at the arch and going behind her medial malleolus to the middle of her medial raygoza. 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 Prior Functional Status Baseline Function- Other history of ankle instability and ankle sprains since [employer] Current Functional Impairments (Reported) Functional Limitations- Work/School difficulty with walking especially on uneven surfaces which she needs to do for her job Functional Limitations- Recreation/ unable to jump, land from a Hobbies jump, or perform cutting/ lateral movements due to pain PT-OP-C Subjective Start: 09/12/18 16:01 Freq: Status: Active Protocol: Document 01/02/19 07:30 AMB (Rec: 01/02/19 07:40 AMB [id number]) OP-PT Subjective Patient Comments Patient Comments Can't run or jump without pain , but overall hopping skipping is feeling ok PT-OP-D Balance Start: 09/12/18 16:01 Freq: Status: Active Protocol: Document 09/12/18 16:01 AMH (Rec: 09/12/18 16:28 AMH [email or web address]) OP-PT Balance Assessment Standing Balance Standing Balance Comments unable to perform single leg balance without support on the right due to pain + gluteus medius drop with SLS bilaterally Rogers Fall Scale Copyright Permission Ken PRADHAN, Ken RM, Matti SJ. Development of a scale to identify the fall- prone patient. Can J Aging 1989;8;366-7. Matthias Rogers (2009). Preventing patient falls. (2nd ed). [place]: [employer]. PT-OP-J Posture/Palpation/Skin Start: 09/12/18 16:01 Freq: Status: Active Protocol: Document 09/12/18 16:01 AMH (Rec: 09/12/18 16:28 AMH [email or web address]) Palpation Assessment Location Three Palpation Location R achilles tendon Palpation Findings Soft Tissue Tightness Tenderness Two Palpation Location R ATFL Palpation Findings Edema Tenderness One Palpation Location R posterior tibialis tendon Palpation Findings Soft Tissue Tightness Muscle Guarding Trigger Point Palpation Details tenderness along the tibialis posterior from insertion up to the muscle belly PT-OP-K Range of Motion Start: 09/12/18 16:01 Freq: Status: Active Protocol: Document 09/12/18 16:01 AMH (Rec: 09/12/18 16:28 AMH [email or web address]) Ankle and Foot Goniometric Range of Motion Ankle and Foot Measured in Degrees Left Active Ankle/Foot ROM WFL Yes Right Active Ankle/Foot ROM WFL Yes Testing Position Sitting Dorsiflexion with Knee Flexed 15 Dorsiflexion with Knee Extended 10 Plantarflexion 5 Inversion 30 Eversion 20 Ankle and Foot ROM Limitations ROM Limitations Soft Tissue Tightness Muscle Tone Pain Swelling Comments pain with AROM and PROM plantar flexion in the medial ankle and achilles tendon region, ( this did lessen following STM and gentle stretching of the achillies and tibialis posterior) PT-OP-M Strength Start: 09/12/18 16:45 Freq: Status: Active Protocol: Document 09/12/18 16:45 AMH (Rec: 09/12/18 16:46 AMH [email or web address]) Hip Strength Hip Manual Muscle Testing Left Abduction 4 Good Comments + gluteus medius drop with SLS Right Abduction 4 Good Comments + gluteus medius drop with SLS Ankle/Foot Strength Ankle and Foot Manual Muscle Testing Right Plantarflexion (S1) 3 Fair Inversion 3+ Fair+ Eversion (S1) 4- Good- Comments pain with resisted Plantar flexion PT-OP-Q Treatments Start: 09/12/18 16:01 Freq: Status: Active Protocol: Document 01/02/19 07:30 AMB (Rec: 01/02/19 08:43 AMB [id number]) Gym Equipment Shuttle Recovery Other- 1 Details hopping Resistance 37 Reps/Time 3x12 Bilateral Squats Resistance 50 Reps/Time 4 minutes Therapeutic Exercises Supine Exercises 2 Supine Exercise Name ARIE calf stretching Side right Reps/Minutes hold 1-2 minutes Standing Exercises 7 Standing Exercise Name double leg jump (jump shot) Reps/Minutes 2x5 4 Standing Exercise Name skipping 3 Standing Exercise Name hopping Comments m/l and a/p 2 Standing Exercise Name Heel raises Reps/Minutes 2x 15 reps Comments unilateral 1 Standing Exercise Name squat Comments with and without heel raise Manual Therapy Treatment Soft Tissue Mobilization 1 Body Location right posterior tibialis tendon and muscle Mobilization Type Myofascial Release Intensity/Depth Moderate Body Position Sitting PT-OP-R Modalities Start: 09/12/18 16:01 Freq: Status: Active Protocol: Document 01/02/19 07:30 AMB (Rec: 01/02/19 12:53 AMB [email or web address]) Hot Pack/Cold Pack Treatment Cold Pack Location ankle Patient Position Supine Treatment Duration (minutes) 10 Patient Tolerance Good PT-OP-T Assessment and Plan Start: 09/12/18 16:01 Freq: Status: Active Protocol: Document 01/02/19 07:30 AMB (Rec: 01/02/19 09:01 AMB [id number]) Physical Therapy Assessment Assessment Summary Assessment Pt is doing well, but continues to have pain with end range plantarflexion ( pushing up into a jump). Physical Therapy Plan Next Visit Focus/Plan Next Note Type Progress Note Next Visit Plan Progress return to running/ sport as tolerated
--- NOTE | 2019-01-26 09:45 | PT.OTN ---
Current Diagnoses Unspecified disorder of synovium and tendon, unspecified ankle and foot (01/26/19) Other enthesopathy of unspecified foot (01/26/19) Sprain of unspecified ligament of right ankle, initial encounter (01/26/19) Sprain of other ligament of right ankle, subsequent encounter (01/26/19) Physical Therapy Treatment Note PT-OP-A Visit Information Start: 09/12/18 16:01 Freq: Status: Active Protocol: Document 01/26/19 09:18 BS (Rec: 01/26/19 09:36 BS [email or web address]) Out-Patient Physical Therapy Visit Information Visit Information Visit Type Treatment Note Visit Start Time 08:20 Visit Stop Time 09:15 Total Visit Minutes 55 Visit Number 17 PT-OP-B Current Condition Start: 09/12/18 16:01 Freq: Status: Active Protocol: Document 09/12/18 16:01 AMH (Rec: 09/12/18 16:28 AMH [email or web address]) Current Condition History of Current Condition Onset Date 6 weeks ago History of Current Condition 33 year old female with history of chronic ankle sprains since [employer]. She reports playing mulpiple sports in [employer] including basketball and skiing/ snowboarding. Currently she sprains her ankle approximatley 5 times per year and it is most often her right ankle. This current time she was in her back yard kicking the ball to her dog when she stepped on a uneven surface and rolled her ankle. She noted that her symptoms were not getting better with ice so she made a MD appointment. She has had a MRI due to increased laxity of her ankle and Dr. Cleveland was concerned about her stability but the MRI was negative. Her chief complaint at this time is pain in the medial side of her foot starting at the arch and going behind her medial malleolus to the middle of her medial raygoza. 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 Prior Functional Status Baseline Function- Other history of ankle instability and ankle sprains since [employer] Current Functional Impairments (Reported) Functional Limitations- Work/School difficulty with walking especially on uneven surfaces which she needs to do for her job Functional Limitations- Recreation/ unable to jump, land from a Hobbies jump, or perform cutting/ lateral movements due to pain PT-OP-C Subjective Start: 09/12/18 16:01 Freq: Status: Active Protocol: Document 01/26/19 09:18 BS (Rec: 01/26/19 09:36 BS [email or web address]) OP-PT Subjective Patient Comments Patient Comments Pt has returned to hiking and is able to do small jump shots with little pain, slowly progressing back to hobbies. Not confident to run yet. PT-OP-D Balance Start: 09/12/18 16:01 Freq: Status: Active Protocol: Document 09/12/18 16:01 AMH (Rec: 09/12/18 16:28 AMH [email or web address]) OP-PT Balance Assessment Standing Balance Standing Balance Comments unable to perform single leg balance without support on the right due to pain + gluteus medius drop with SLS bilaterally Rogers Fall Scale Copyright Permission Ken PRADHAN, Ken RM, Matti SJ. Development of a scale to identify the fall- prone patient. Can J Aging 1989;8;366-7. Matthias Rogers (2009). Preventing patient falls. (2nd ed). [place]: [employer]. PT-OP-J Posture/Palpation/Skin Start: 09/12/18 16:01 Freq: Status: Active Protocol: Document 09/12/18 16:01 AMH (Rec: 09/12/18 16:28 AMH [email or web address]) Palpation Assessment Location Three Palpation Location R achilles tendon Palpation Findings Soft Tissue Tightness Tenderness Two Palpation Location R ATFL Palpation Findings Edema Tenderness One Palpation Location R posterior tibialis tendon Palpation Findings Soft Tissue Tightness Muscle Guarding Trigger Point Palpation Details tenderness along the tibialis posterior from insertion up to the muscle belly PT-OP-K Range of Motion Start: 09/12/18 16:01 Freq: Status: Active Protocol: Document 09/12/18 16:01 AMH (Rec: 09/12/18 16:28 AMH [email or web address]) Ankle and Foot Goniometric Range of Motion Ankle and Foot Measured in Degrees Left Active Ankle/Foot ROM WFL Yes Right Active Ankle/Foot ROM WFL Yes Testing Position Sitting Dorsiflexion with Knee Flexed 15 Dorsiflexion with Knee Extended 10 Plantarflexion 5 Inversion 30 Eversion 20 Ankle and Foot ROM Limitations ROM Limitations Soft Tissue Tightness Muscle Tone Pain Swelling Comments pain with AROM and PROM plantar flexion in the medial ankle and achilles tendon region, ( this did lessen following STM and gentle stretching of the achillies and tibialis posterior) PT-OP-M Strength Start: 09/12/18 16:45 Freq: Status: Active Protocol: Document 09/12/18 16:45 AMH (Rec: 09/12/18 16:46 AMH [email or web address]) Hip Strength Hip Manual Muscle Testing Left Abduction 4 Good Comments + gluteus medius drop with SLS Right Abduction 4 Good Comments + gluteus medius drop with SLS Ankle/Foot Strength Ankle and Foot Manual Muscle Testing Right Plantarflexion (S1) 3 Fair Inversion 3+ Fair+ Eversion (S1) 4- Good- Comments pain with resisted Plantar flexion PT-OP-Q Treatments Start: 09/12/18 16:01 Freq: Status: Active Protocol: Document 01/26/19 09:18 BS (Rec: 01/26/19 09:36 BS [email or web address]) Gym Equipment Shuttle Recovery Bilateral Heel Raises Resistance 100 Reps/Time x25 Unilateral Squats Resistance 100 Reps/Time x20 Other- 1 Details alternating hopping Resistance 100 Bilateral Squats Resistance 100 Reps/Time 4 minutes Therapeutic Ball 2 Exercise Details Mini squats/circles CW/CCW Ball Size/Color BOSU Body Position Standing Reps/Duration x10 each Comments VCs to increase knee flexion for closed chain DF. 1 Exercise Details lateral stepping Ball Size/Color BOSU Body Position Standing Reps/Duration x15 Therapeutic Exercises Sitting Exercises 1 Sitting Exercise Name Ankle Tband 4way Side right Resistance yellow loop band Reps/Minutes x12 each Standing Exercises 7 Standing Exercise Name double leg jump (jump shot) Reps/Minutes x8 6 Standing Exercise Name RLE squat w/ hip abduction Resistance yellow tband loop Equipment Used 4 step Reps/Minutes 2x10 each Comments abduction @ 2,3,5 o'clock posiiton PT-OP-R Modalities Start: 09/12/18 16:01 Freq: Status: Active Protocol: Document 01/26/19 09:18 BS (Rec: 01/26/19 09:36 BS [email or web address]) Hot Pack/Cold Pack Treatment Cold Pack Location ankle Patient Position Supine Treatment Duration (minutes) 10 Patient Tolerance Good PT-OP-T Assessment and Plan Start: 09/12/18 16:01 Freq: Status: Active Protocol: Document 01/26/19 09:43 AMB (Rec: 01/26/19 09:45 AMB [email or web address]) Physical Therapy Assessment Goals Four Impairment decreased strength of the right ankle [employer] Goal (LTG) improve ankle strength to 5/5 for improved ankle support and to help prevent further sprains from occuring LTG Duration MET Three Impairment pain rated 4/10 right ankle made worse with walking and hiking activities. [employer] Goal (LTG) Heidy is able to return to hiking and walking with improve stability and decreased pain LTG Duration MET Two Impairment pain with SLS activity and loss of balance on the right [employer] Goal (LTG) Heidy is able to stand single leg stance on the right without pain for 10-20 seconds LTG Duration MET One Impairment pain with ankle ROM into plantar flexion Short Term Goal (STG) Heidy is able to perform full painfree ROM into plantar flexion without any c/o pain in the medial ankle STG Duration Pain at end range only Assessment Summary Assessment Pt has returned to many recreational activities but is limited due to R ankle pain. She unable to engage in high level dynamic activity and continues to report pain with closed chain dorsiflexion and loading of RLE. Pt continues to benefit from physical therapy for ankle stabilization, strengthening, and plyometrics to promote return to PLOF without pain. Physical Therapy Plan Frequency and Duration Frequency of Treatment Every Other Week Duration of Treatment 2 months Plan of Care Start Date 01/26/19 Plan of Care End Date 03/28/19 Therapeutic Interventions Therapeutic Interventions Balance Training Home Exercise Program Manual Therapy Patient/Caregiver Education Soft Tissue Mobilization Taping Therapeutic Exercises Modalities Cold Pack/Ice Massage Ultrasound Next Visit Focus/Plan Next Note Type Treatment Note Next Visit Plan Progression of plyometrics as tolerated. Closed chain dorsiflexion.
--- NOTE | 2019-01-26 09:46 | PT.OPPOC ---
Current Diagnoses Unspecified disorder of synovium and tendon, unspecified ankle and foot (01/26/19) Other enthesopathy of unspecified foot (01/26/19) Sprain of unspecified ligament of right ankle, initial encounter (01/26/19) Sprain of other ligament of right ankle, subsequent encounter (01/26/19) Provider Visit Care Team Role Provider Type Milagros Haider DO Primary Care Provider Physician Specialty: Family Practice Address: [address] [place] [address], [address] Email: [email or web address] Dudley Cleveland MD Attending Provider Physician Specialty: Orthopedic Surgery Address: [address] [place] [address], [address] Email: [email or web address] Plan Of Care PT-OP-T Assessment and Plan Start: 09/12/18 16:01 Freq: Status: Active Protocol: Document 01/26/19 09:43 AMB (Rec: 01/26/19 09:45 AMB [email or web address]) Physical Therapy Assessment Goals Four Impairment decreased strength of the right ankle Halfway Goal (LTG) improve ankle strength to 5/5 for improved ankle support and to help prevent further sprains from occuring LTG Duration MET Three Impairment pain rated 4/10 right ankle made worse with walking and hiking activities. Halfway Goal (LTG) Heidy is able to return to hiking and walking with improve stability and decreased pain LTG Duration MET Two Impairment pain with SLS activity and loss of balance on the right Halfway Goal (LTG) Heidy is able to stand single leg stance on the right without pain for 10-20 seconds LTG Duration MET One Impairment pain with ankle ROM into plantar flexion Short Term Goal (STG) Heidy is able to perform full painfree ROM into plantar flexion without any c/o pain in the medial ankle STG Duration Pain at end range only Assessment Summary Assessment Pt has returned to many recreational activities but is limited due to R ankle pain. She unable to engage in high level dynamic activity and continues to report pain with closed chain dorsiflexion and loading of RLE. Pt continues to benefit from physical therapy for ankle stabilization, strengthening, and plyometrics to promote return to PLOF without pain. Physical Therapy Plan Frequency and Duration Frequency of Treatment Every Other Week Duration of Treatment 2 months Plan of Care Start Date 01/26/19 Plan of Care End Date 03/28/19 Therapeutic Interventions Therapeutic Interventions Balance Training Home Exercise Program Manual Therapy Patient/Caregiver Education Soft Tissue Mobilization Taping Therapeutic Exercises Modalities Cold Pack/Ice Massage Ultrasound Next Visit Focus/Plan Next Note Type Treatment Note Next Visit Plan Progression of plyometrics as tolerated. Closed chain dorsiflexion. Plan of Care Dates Plan of Care Start Date 01/26/19 Plan of Care End Date 03/28/19 Please Sign and Return: I have reviewed this Plan of Care and certify that the skilled therapy services above are required to meet the patient?s needs. Physician Signature Date Printed Name and Credentials Clinical Instructor Signature Printed Name and Credentials
--- NOTE | 2019-02-23 16:29 | PT.OTN ---
Current Diagnoses Unspecified disorder of synovium and tendon, unspecified ankle and foot (02/23/19) Other enthesopathy of unspecified foot (02/23/19) Sprain of unspecified ligament of right ankle, initial encounter (02/23/19) Sprain of other ligament of right ankle, subsequent encounter (02/23/19) Physical Therapy Treatment Note PT-OP-A Visit Information Start: 09/12/18 16:01 Freq: Status: Active Protocol: Document 01/26/19 09:18 BS (Rec: 01/26/19 09:36 BS [email or web address]) Out-Patient Physical Therapy Visit Information Visit Information Visit Type Treatment Note Visit Start Time 08:20 Visit Stop Time 09:15 Total Visit Minutes 55 Visit Number 17 PT-OP-B Current Condition Start: 09/12/18 16:01 Freq: Status: Active Protocol: Document 09/12/18 16:01 AMH (Rec: 09/12/18 16:28 AMH [email or web address]) Current Condition History of Current Condition Onset Date 6 weeks ago History of Current Condition 33 year old female with history of chronic ankle sprains since [employer]. She reports playing mulpiple sports in [employer] including basketball and skiing/ snowboarding. Currently she sprains her ankle approximatley 5 times per year and it is most often her right ankle. This current time she was in her back yard kicking the ball to her dog when she stepped on a uneven surface and rolled her ankle. She noted that her symptoms were not getting better with ice so she made a MD appointment. She has had a MRI due to increased laxity of her ankle and Dr. Cleveland was concerned about her stability but the MRI was negative. Her chief complaint at this time is pain in the medial side of her foot starting at the arch and going behind her medial malleolus to the middle of her medial raygoza. 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 Prior Functional Status Baseline Function- Other history of ankle instability and ankle sprains since [employer] Current Functional Impairments (Reported) Functional Limitations- Work/School difficulty with walking especially on uneven surfaces which she needs to do for her job Functional Limitations- Recreation/ unable to jump, land from a Hobbies jump, or perform cutting/ lateral movements due to pain PT-OP-C Subjective Start: 09/12/18 16:01 Freq: Status: Active Protocol: Document 02/23/19 09:00 BS (Rec: 02/23/19 13:06 BS [email or web address]) OP-PT Subjective Patient Comments Patient Comments Pt reports she was pretty sore after last session and has had more pain at rest. Describes sharp pains at rest along lateral and medial ankle . Patient Reported Progress Worse PT-OP-D Balance Start: 09/12/18 16:01 Freq: Status: Active Protocol: Document 09/12/18 16:01 AMH (Rec: 09/12/18 16:28 AMH [email or web address]) OP-PT Balance Assessment Standing Balance Standing Balance Comments unable to perform single leg balance without support on the right due to pain + gluteus medius drop with SLS bilaterally Rogers Fall Scale Copyright Permission Ken PRADHAN, Ken RM, Matti SJ. Development of a scale to identify the fall- prone patient. Can J Aging 1989;8;366-7. Matthias Rogers (2009). Preventing patient falls. (2nd ed). [place]: [employer]. PT-OP-J Posture/Palpation/Skin Start: 09/12/18 16:01 Freq: Status: Active Protocol: Document 09/12/18 16:01 [facility] (Rec: 09/12/18 16:28 AMH [email or web address]) Palpation Assessment Location Three Palpation Location R achilles tendon Palpation Findings Soft Tissue Tightness Tenderness Two Palpation Location R ATFL Palpation Findings Edema Tenderness One Palpation Location R posterior tibialis tendon Palpation Findings Soft Tissue Tightness Muscle Guarding Trigger Point Palpation Details tenderness along the tibialis posterior from insertion up to the muscle belly PT-OP-K Range of Motion Start: 09/12/18 16:01 Freq: Status: Active Protocol: Document 09/12/18 16:01 AMH (Rec: 09/12/18 16:28 AMH [email or web address]) Ankle and Foot Goniometric Range of Motion Ankle and Foot Measured in Degrees Left Active Ankle/Foot ROM WFL Yes Right Active Ankle/Foot ROM WFL Yes Testing Position Sitting Dorsiflexion with Knee Flexed 15 Dorsiflexion with Knee Extended 10 Plantarflexion 5 Inversion 30 Eversion 20 Ankle and Foot ROM Limitations ROM Limitations Soft Tissue Tightness Muscle Tone Pain Swelling Comments pain with AROM and PROM plantar flexion in the medial ankle and achilles tendon region, ( this did lessen following STM and gentle stretching of the achillies and tibialis posterior) PT-OP-M Strength Start: 09/12/18 16:45 Freq: Status: Active Protocol: Document 09/12/18 16:45 AMH (Rec: 09/12/18 16:46 AMH [email or web address]) Hip Strength Hip Manual Muscle Testing Left Abduction 4 Good Comments + gluteus medius drop with SLS Right Abduction 4 Good Comments + gluteus medius drop with SLS Ankle/Foot Strength Ankle and Foot Manual Muscle Testing Right Plantarflexion (S1) 3 Fair Inversion 3+ Fair+ Eversion (S1) 4- Good- Comments pain with resisted Plantar flexion PT-OP-Q Treatments Start: 09/12/18 16:01 Freq: Status: Active Protocol: Document 02/23/19 09:00 BS (Rec: 02/23/19 16:27 BS [id number]) Gym Equipment Shuttle Balance 1 Details Ant/post/lat Comments RED. Lateral with ball toss in /out of ALEXYS. Some ankle and arch pain. Therapeutic Exercises Supine Exercises 2 Supine Exercise Name ARIE calf stretching Side right Reps/Minutes hold 1-2 minutes Sitting Exercises 1 Sitting Exercise Name Ankle Tband 4way Side right Resistance #3 band Reps/Minutes x15 each way Comments long sitting Standing Exercises 6 Standing Exercise Name RLE squat w/ hip abduction Resistance #3 band looped Equipment Used 4 step Reps/Minutes 2x10 each Comments arch/intrinsic foot mm fatigue 5 Standing Exercise Name Calf Raises Side bilateral Reps/Minutes 2x10 Comments L eccentric lowering 2 Standing Exercise Name Heel raises Reps/Minutes 2x 15 reps Comments bilateral Manual Therapy Treatment Soft Tissue Mobilization 1 Body Location right posterior tibialis, lower gastroc/soleus Mobilization Type Myofascial Release Intensity/Depth Moderate Body Position Supine Comments right posterior tibialis, lower gastroc/soleus/ plantar fascia. PT-OP-R Modalities Start: 09/12/18 16:01 Freq: Status: Active Protocol: Document 02/23/19 09:00 BS (Rec: 02/23/19 16:27 BS [email or web address]) Hot Pack/Cold Pack Treatment Cold Pack Location ankle Patient Position Supine Treatment Duration (minutes) 10 Patient Tolerance Good PT-OP-T Assessment and Plan Start: 09/12/18 16:01 Freq: Status: Active Protocol: Document 02/23/19 09:00 BS (Rec: 02/23/19 16:27 BS [id number]) Physical Therapy Assessment Assessment Summary Assessment Pt had increased L ankle pain following last session. She reports pain at rest along lateral and medial portion of gastroc/soleus. She continues to have swelling especially along post. medial malleolus. Physical Therapy Plan Frequency and Duration Frequency of Treatment Every Other Week Duration of Treatment 2 months Plan of Care Start Date 01/26/19 Plan of Care End Date 03/28/19 Therapeutic Interventions Therapeutic Interventions Balance Training Home Exercise Program Manual Therapy Patient/Caregiver Education Soft Tissue Mobilization Taping Therapeutic Exercises Modalities Cold Pack/Ice Massage Ultrasound Next Visit Focus/Plan Next Note Type Treatment Note Next Visit Plan Assess response to session, light plyometrics as pt toelrates. Intrinsic foot strengthening.
--- NOTE | 2019-04-05 15:52 | PT.OTN ---
Current Diagnoses Unspecified disorder of synovium and tendon, unspecified ankle and foot (04/05/19) Other enthesopathy of unspecified foot (04/05/19) Sprain of unspecified ligament of right ankle, initial encounter (04/05/19) Sprain of other ligament of right ankle, subsequent encounter (04/05/19) Physical Therapy Treatment Note PT-OP-A Visit Information Start: 09/12/18 16:01 Freq: Status: Active Protocol: Document 04/05/19 07:30 AMB (Rec: 04/05/19 15:51 AMB [email or web address]) Out-Patient Physical Therapy Visit Information Visit Information Visit Type Treatment Note Visit Start Time 07:30 Visit Stop Time 08:20 Total Visit Minutes 50 Visit Number 19 PT-OP-B Current Condition Start: 09/12/18 16:01 Freq: Status: Active Protocol: Document 09/12/18 16:01 AMH (Rec: 09/12/18 16:28 AMH [email or web address]) Current Condition History of Current Condition Onset Date 6 weeks ago History of Current Condition 33 year old female with history of chronic ankle sprains since [employer]. She reports playing mulpiple sports in highschool including basketball and skiing/ snowboarding. Currently she sprains her ankle approximatley 5 times per year and it is most often her right ankle. This current time she was in her back yard kicking the ball to her dog when she stepped on a uneven surface and rolled her ankle. She noted that her symptoms were not getting better with ice so she made a MD appointment. She has had a MRI due to increased laxity of her ankle and Dr. Cleveland was concerned about her stability but the MRI was negative. Her chief complaint at this time is pain in the medial side of her foot starting at the arch and going behind her medial malleolus to the middle of her medial raygoza. 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 Prior Functional Status Baseline Function- Other history of ankle instability and ankle sprains since [employer] Current Functional Impairments (Reported) Functional Limitations- Work/School difficulty with walking especially on uneven surfaces which she needs to do for her job Functional Limitations- Recreation/ unable to jump, land from a Hobbies jump, or perform cutting/ lateral movements due to pain PT-OP-C Subjective Start: 09/12/18 16:01 Freq: Status: Active Protocol: Document 04/05/19 07:30 AMB (Rec: 04/05/19 15:51 AMB [email or web address]) OP-PT Subjective Patient Comments Patient Comments Pt feels she can do most ADLs without pain. She has not tried to really push her running yet. Patient Reported Progress Improving PT-OP-D Balance Start: 09/12/18 16:01 Freq: Status: Active Protocol: Document 09/12/18 16:01 AMH (Rec: 09/12/18 16:28 AMH [email or web address]) OP-PT Balance Assessment Standing Balance Standing Balance Comments unable to perform single leg balance without support on the right due to pain + gluteus medius drop with SLS bilaterally Rogers Fall Scale Copyright Permission Ken PRADHAN, Ken RM, Matti SJ. Development of a scale to identify the fall- prone patient. Can J Aging 1989;8;366-7. Matthias Rogers (2009). Preventing patient falls. (2nd ed). [place]: [employer]. PT-OP-J Posture/Palpation/Skin Start: 09/12/18 16:01 Freq: Status: Active Protocol: Document 09/12/18 16:01 AMH (Rec: 09/12/18 16:28 AMH [email or web address]) Palpation Assessment Location Three Palpation Location R achilles tendon Palpation Findings Soft Tissue Tightness Tenderness Two Palpation Location R ATFL Palpation Findings Edema Tenderness One Palpation Location R posterior tibialis tendon Palpation Findings Soft Tissue Tightness Muscle Guarding Trigger Point Palpation Details tenderness along the tibialis posterior from insertion up to the muscle belly PT-OP-K Range of Motion Start: 09/12/18 16:01 Freq: Status: Active Protocol: Document 09/12/18 16:01 AMH (Rec: 09/12/18 16:28 AMH [email or web address]) Ankle and Foot Goniometric Range of Motion Ankle and Foot Measured in Degrees Left Active Ankle/Foot ROM WFL Yes Right Active Ankle/Foot ROM WFL Yes Testing Position Sitting Dorsiflexion with Knee Flexed 15 Dorsiflexion with Knee Extended 10 Plantarflexion 5 Inversion 30 Eversion 20 Ankle and Foot ROM Limitations ROM Limitations Soft Tissue Tightness Muscle Tone Pain Swelling Comments pain with AROM and PROM plantar flexion in the medial ankle and achilles tendon region, ( this did lessen following STM and gentle stretching of the achillies and tibialis posterior) PT-OP-M Strength Start: 09/12/18 16:45 Freq: Status: Active Protocol: Document 02/23/19 09:00 BS (Rec: 02/23/19 16:31 BS [id number]) Ankle/Foot Strength Ankle and Foot Manual Muscle Testing Right Plantarflexion (S1) 5 Normal Inversion 5 Normal Eversion (S1) 5 Normal Comments some pain with inversion/ eversion MMT. PT-OP-Q Treatments Start: 09/12/18 16:01 Freq: Status: Active Protocol: Document 04/05/19 07:30 AMB (Rec: 04/05/19 15:51 AMB [email or web address]) Gym Equipment Shuttle Recovery Other- 1 Details alternating hopping Resistance 100 Shuttle Balance 1 Details Ant/post/lat Comments RED. Lateral with ball toss in /out of ALEXYS. no ankle pain Therapeutic Ball 2 Exercise Details Mini squats/circles CW/CCW Ball Size/Color BOSU Body Position Standing Reps/Duration x10 each Comments VCs to increase knee flexion for closed chain DF. Therapeutic Exercises Supine Exercises 2 Supine Exercise Name ARIE calf stretching Side right Reps/Minutes hold 1-2 minutes Standing Exercises 5 Standing Exercise Name Calf Raises Side bilateral Reps/Minutes 2x10 Comments L eccentric lowering 4 Standing Exercise Name skipping Comments 30 3 Standing Exercise Name hopping Reps/Minutes sing leg vs double leg Comments m/l and a/p 2 Standing Exercise Name Heel raises Reps/Minutes 2x 15 reps Comments bilateral PT-OP-R Modalities Start: 09/12/18 16:01 Freq: Status: Active Protocol: Document 04/05/19 07:30 AMB (Rec: 04/05/19 15:51 AMB [email or web address]) Hot Pack/Cold Pack Treatment Cold Pack Location ankle Patient Position Supine Treatment Duration (minutes) 10 Patient Tolerance Good PT-OP-T Assessment and Plan Start: 09/12/18 16:01 Freq: Status: Active Protocol: Document 04/05/19 07:30 AMB (Rec: 04/05/19 15:51 AMB [email or web address]) Physical Therapy Assessment Goals Four Impairment decreased strength of the right ankle Health Care Sanitary Technician Goal (LTG) improve ankle strength to 5/5 for improved ankle support and to help prevent further sprains from occuring LTG Duration MET Three Impairment pain rated 4/10 right ankle made worse with walking and hiking activities. Long-Term Goal (LTG) Heidy is able to return to hiking and walking with improve stability and decreased pain LTG Duration MET Two Impairment pain with SLS activity and loss of balance on the right Long-Term Goal (LTG) Heidy is able to stand single leg stance on the right without pain for 10-20 seconds LTG Duration MET One Impairment pain with ankle ROM into plantar flexion Short Term Goal (STG) Heidy is able to perform full painfree ROM into plantar flexion without any c/o pain in the medial ankle STG Duration Pain at end range only Assessment Summary Assessment Malaika has met many of her goals, however she continues to have pain with return to sport (hiking, basketball, running) she will benefit from continued PT to help her meet her goals of running/jumping without pain. She has been seen once per month for the past 4 months. Physical Therapy Plan Frequency and Duration Frequency of Treatment 1x/Week Duration of Treatment 2 months Plan of Care Start Date 04/05/19 Plan of Care End Date 06/05/19 Therapeutic Interventions Therapeutic Interventions Balance Training Home Exercise Program Manual Therapy Patient/Caregiver Education Soft Tissue Mobilization Taping Therapeutic Exercises Modalities Cold Pack/Ice Massage Ultrasound Next Visit Focus/Plan Next Note Type Treatment Note Next Visit Plan Progress return to sport, plyometrics
--- NOTE | 2019-04-05 15:52 | PT.OPPOC ---
Current Diagnoses Unspecified disorder of synovium and tendon, unspecified ankle and foot (04/05/19) Other enthesopathy of unspecified foot (04/05/19) Sprain of unspecified ligament of right ankle, initial encounter (04/05/19) Sprain of other ligament of right ankle, subsequent encounter (04/05/19) Provider Visit Care Team Role Provider Type Milagros Haider DO Primary Care Provider Physician Specialty: Family Practice Address: [address] [place] [address], [address] Email: [email or web address] Dudley Cleveland MD Attending Provider Physician Specialty: Orthopedic Surgery Address: [address] [place] [address], [address] Email: [email or web address] Plan Of Care PT-OP-T Assessment and Plan Start: 09/12/18 16:01 Freq: Status: Active Protocol: Document 04/05/19 07:30 AMB (Rec: 04/05/19 15:51 AMB [email or web address]) Physical Therapy Assessment Goals Four Impairment decreased strength of the right ankle Intermediate Goal (LTG) improve ankle strength to 5/5 for improved ankle support and to help prevent further sprains from occuring LTG Duration MET Three Impairment pain rated 4/10 right ankle made worse with walking and hiking activities. Intermediate Goal (LTG) Heidy is able to return to hiking and walking with improve stability and decreased pain LTG Duration MET Two Impairment pain with SLS activity and loss of balance on the right Animal Pathologist Goal (LTG) Heidy is able to stand single leg stance on the right without pain for 10-20 seconds LTG Duration MET One Impairment pain with ankle ROM into plantar flexion Short Term Goal (STG) Heidy is able to perform full painfree ROM into plantar flexion without any c/o pain in the medial ankle STG Duration Pain at end range only Assessment Summary Assessment Malaika has met many of her goals, however she continues to have pain with return to sport (hiking, basketball, running) she will benefit from continued PT to help her meet her goals of running/jumping without pain. She has been seen once per month for the past 4 months. Physical Therapy Plan Frequency and Duration Frequency of Treatment 1x/Week Duration of Treatment 2 months Plan of Care Start Date 04/05/19 Plan of Care End Date 06/05/19 Therapeutic Interventions Therapeutic Interventions Balance Training Home Exercise Program Manual Therapy Patient/Caregiver Education Soft Tissue Mobilization Taping Therapeutic Exercises Modalities Cold Pack/Ice Massage Ultrasound Next Visit Focus/Plan Next Note Type Treatment Note Next Visit Plan Progress return to sport, plyometrics Plan of Care Dates Plan of Care Start Date 04/05/19 Plan of Care End Date 06/05/19 Please Sign and Return: I have reviewed this Plan of Care and certify that the skilled therapy services above are required to meet the patient?s needs. Physician Signature Date Printed Name and Credentials Clinical Instructor Signature Printed Name and Credentials
--- NOTE | 2019-04-18 15:28 | PT.OTN ---
Current Diagnoses Unspecified disorder of synovium and tendon, unspecified ankle and foot (04/18/19) Other enthesopathy of unspecified foot (04/18/19) Sprain of unspecified ligament of right ankle, initial encounter (04/18/19) Sprain of other ligament of right ankle, subsequent encounter (04/18/19) Physical Therapy Treatment Note PT-OP-A Visit Information Start: 09/12/18 16:01 Freq: Status: Active Protocol: Document 04/18/19 07:30 AMB (Rec: 04/18/19 15:28 AMB [email or web address]) Out-Patient Physical Therapy Visit Information Visit Information Visit Type Treatment Note Visit Start Time 07:30 Visit Stop Time 08:20 Total Visit Minutes 50 Visit Number 20 PT-OP-B Current Condition Start: 09/12/18 16:01 Freq: Status: Active Protocol: Document 09/12/18 16:01 AMH (Rec: 09/12/18 16:28 AMH [email or web address]) Current Condition History of Current Condition Onset Date 6 weeks ago History of Current Condition 33 year old female with history of chronic ankle sprains since [employer]. She reports playing mulpiple sports in highschool including basketball and skiing/ snowboarding. Currently she sprains her ankle approximatley 5 times per year and it is most often her right ankle. This current time she was in her back yard kicking the ball to her dog when she stepped on a uneven surface and rolled her ankle. She noted that her symptoms were not getting better with ice so she made a MD appointment. She has had a MRI due to increased laxity of her ankle and Dr. Cleveland was concerned about her stability but the MRI was negative. Her chief complaint at this time is pain in the medial side of her foot starting at the arch and going behind her medial malleolus to the middle of her medial raygoza. 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 Prior Functional Status Baseline Function- Other history of ankle instability and ankle sprains since [employer] Current Functional Impairments (Reported) Functional Limitations- Work/School difficulty with walking especially on uneven surfaces which she needs to do for her job Functional Limitations- Recreation/ unable to jump, land from a Hobbies jump, or perform cutting/ lateral movements due to pain PT-OP-C Subjective Start: 09/12/18 16:01 Freq: Status: Active Protocol: Document 04/18/19 07:30 AMB (Rec: 04/18/19 15:28 AMB [email or web address]) OP-PT Subjective Patient Comments Patient Comments Pt has been busy with work, so has been doing her hopping/ skipping, but has not tried runing/hiking yet. PT-OP-D Balance Start: 09/12/18 16:01 Freq: Status: Active Protocol: Document 09/12/18 16:01 AMH (Rec: 09/12/18 16:28 AMH [email or web address]) OP-PT Balance Assessment Standing Balance Standing Balance Comments unable to perform single leg balance without support on the right due to pain + gluteus medius drop with SLS bilaterally Rogers Fall Scale Copyright Permission PT-OP-J Posture/Palpation/Skin Start: 09/12/18 16:01 Freq: Status: Active Protocol: Document 09/12/18 16:01 AMH (Rec: 09/12/18 16:28 AMH [email or web address]) Palpation Assessment Location Three Palpation Location R achilles tendon Palpation Findings Soft Tissue Tightness Tenderness Two Palpation Location R ATFL Palpation Findings Edema Tenderness One Palpation Location R posterior tibialis tendon Palpation Findings Soft Tissue Tightness Muscle Guarding Trigger Point Palpation Details tenderness along the tibialis posterior from insertion up to the muscle belly PT-OP-K Range of Motion Start: 09/12/18 16:01 Freq: Status: Active Protocol: Document 09/12/18 16:01 AMH (Rec: 09/12/18 16:28 AMH [email or web address]) Ankle and Foot Goniometric Range of Motion Ankle and Foot Left Active Ankle/Foot ROM WFL Yes Right Active Ankle/Foot ROM WFL Yes Testing Position Sitting Dorsiflexion with Knee Flexed 15 Dorsiflexion with Knee Extended 10 Plantarflexion 5 Inversion 30 Eversion 20 Ankle and Foot ROM Limitations ROM Limitations Soft Tissue Tightness Muscle Tone Pain Swelling Comments pain with AROM and PROM plantar flexion in the medial ankle and achilles tendon region, ( this did lessen following STM and gentle stretching of the achillies and tibialis posterior) PT-OP-M Strength Start: 11/20/18 16:45 Freq: Status: Active Protocol: Document 02/23/19 09:00 BS (Rec: 02/23/19 16:31 BS [id number]) Ankle/Foot Strength Ankle and Foot Manual Muscle Testing Right Plantarflexion (S1) 5 Normal Inversion 5 Normal Eversion (S1) 5 Normal Comments some pain with inversion/ eversion MMT. PT-OP-Q Treatments Start: 09/12/18 16:01 Freq: Status: Active Protocol: Document 04/18/19 07:30 AMB (Rec: 04/18/19 15:28 AMB [email or web address]) Gym Equipment Shuttle Recovery Other- 1 Details alternating hopping Resistance 100 Shuttle Balance 1 Details Ant/post/lat Comments RED. stride stance. Therapeutic Exercises Supine Exercises 2 Supine Exercise Name ARIE calf stretching Side right Reps/Minutes hold 1-2 minutes Sitting Exercises 1 Sitting Exercise Name Ankle Tband 4way Side right Resistance #3 band Reps/Minutes x15 each way Comments long sitting Standing Exercises 5 Standing Exercise Name Calf Raises Side bilateral Reps/Minutes 2x10 Comments L eccentric lowering 4 Standing Exercise Name skipping Comments 1 min 3 Standing Exercise Name hopping Reps/Minutes sing leg vs double leg Comments m/l and a/p 1 Standing Exercise Name jumping Reps/Minutes 2x7 Comments squat jump PT-OP-R Modalities Start: 09/12/18 16:01 Freq: Status: Active Protocol: Document 04/18/19 07:30 AMB (Rec: 04/18/19 15:28 AMB [email or web address]) Hot Pack/Cold Pack Treatment Cold Pack Location ankle Patient Position Supine Treatment Duration (minutes) 10 Patient Tolerance Good PT-OP-T Assessment and Plan Start: 09/12/18 16:01 Freq: Status: Active Protocol: Document 04/18/19 07:30 AMB (Rec: 04/18/19 15:28 AMB [email or web address]) Physical Therapy Plan Next Visit Focus/Plan Next Note Type Treatment Note Next Visit Plan Progress return to sport, plyometrics
--- NOTE | 2019-04-25 08:17 | PT.OTN ---
Current Diagnoses Unspecified disorder of synovium and tendon, unspecified ankle and foot (04/25/19) Other enthesopathy of unspecified foot (04/25/19) Sprain of unspecified ligament of right ankle, initial encounter (04/25/19) Sprain of other ligament of right ankle, subsequent encounter (04/25/19) Physical Therapy Treatment Note PT-OP-A Visit Information Start: 09/12/18 16:01 Freq: Status: Active Protocol: Document 04/25/19 07:30 AMB (Rec: 04/25/19 07:39 AMB [id number]) Out-Patient Physical Therapy Visit Information Visit Information Visit Type Treatment Note Visit Start Time 07:30 Visit Stop Time 08:20 Total Visit Minutes 50 Visit Number 21 PT-OP-B Current Condition Start: 09/12/18 16:01 Freq: Status: Active Protocol: Document 09/12/18 16:01 AMH (Rec: 09/12/18 16:28 AMH [email or web address]) Current Condition History of Current Condition Onset Date 6 weeks ago History of Current Condition 33 year old female with history of chronic ankle sprains since highschool. She reports playing mulpiple sports in highschool including basketball and skiing/ snowboarding. Currently she sprains her ankle approximatley 5 times per year and it is most often her right ankle. This current time she was in her back yard kicking the ball to her dog when she stepped on a uneven surface and rolled her ankle. She noted that her symptoms were not getting better with ice so she made a MD appointment. She has had a MRI due to increased laxity of her ankle and Dr. Cleveland was concerned about her stability but the MRI was negative. Her chief complaint at this time is pain in the medial side of her foot starting at the arch and going behind her medial malleolus to the middle of her medial raygoza. 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 Prior Functional Status Baseline Function- Other history of ankle instability and ankle sprains since [employer] Current Functional Impairments (Reported) Functional Limitations- Work/School difficulty with walking especially on uneven surfaces which she needs to do for her job Functional Limitations- Recreation/ unable to jump, land from a Hobbies jump, or perform cutting/ lateral movements due to pain PT-OP-C Subjective Start: 09/12/18 16:01 Freq: Status: Active Protocol: Document 04/25/19 07:30 AMB (Rec: 04/25/19 07:39 AMB [id number]) OP-PT Subjective Patient Comments Patient Comments Pt is doing well, has been gardening and went to [place] and walked up and down hills without too much pain. PT-OP-D Balance Start: 09/12/18 16:01 Freq: Status: Active Protocol: Document 09/12/18 16:01 AMH (Rec: 09/12/18 16:28 AMH [email or web address]) OP-PT Balance Assessment Standing Balance Standing Balance Comments unable to perform single leg balance without support on the right due to pain + gluteus medius drop with SLS bilaterally Rogers Fall Scale Copyright Permission PT-OP-J Posture/Palpation/Skin Start: 09/12/18 16:01 Freq: Status: Active Protocol: Document 09/12/18 16:01 AMH (Rec: 09/12/18 16:28 AMH [email or web address]) Palpation Assessment Location Three Palpation Location R achilles tendon Palpation Findings Soft Tissue Tightness Tenderness Two Palpation Location R ATFL Palpation Findings Edema Tenderness One Palpation Location R posterior tibialis tendon Palpation Findings Soft Tissue Tightness Muscle Guarding Trigger Point Palpation Details tenderness along the tibialis posterior from insertion up to the muscle belly PT-OP-K Range of Motion Start: 09/12/18 16:01 Freq: Status: Active Protocol: Document 09/12/18 16:01 AMH (Rec: 09/12/18 16:28 AMH [email or web address]) Ankle and Foot Goniometric Range of Motion Ankle and Foot Left Active Ankle/Foot ROM WFL Yes Right Active Ankle/Foot ROM WFL Yes Testing Position Sitting Dorsiflexion with Knee Flexed 15 Dorsiflexion with Knee Extended 10 Plantarflexion 5 Inversion 30 Eversion 20 Ankle and Foot ROM Limitations ROM Limitations Soft Tissue Tightness Muscle Tone Pain Swelling Comments pain with AROM and PROM plantar flexion in the medial ankle and achilles tendon region, ( this did lessen following STM and gentle stretching of the achillies and tibialis posterior) PT-OP-M Strength Start: 09/12/18 16:45 Freq: Status: Active Protocol: Document 02/23/19 09:00 BS (Rec: 02/23/19 16:31 BS [id number]) Ankle/Foot Strength Ankle and Foot Manual Muscle Testing Right Plantarflexion (S1) 5 Normal Inversion 5 Normal Eversion (S1) 5 Normal Comments some pain with inversion/ eversion MMT. PT-OP-Q Treatments Start: 09/12/18 16:01 Freq: Status: Active Protocol: Document 04/25/19 07:30 AMB (Rec: 04/25/19 07:48 AMB [id number]) Gym Equipment Shuttle Recovery Bilateral Heel Raises Resistance 100 Reps/Time x25 Other- 1 Details alternating hopping Resistance 100 Bilateral Squats Resistance 100 Reps/Time 4 minutes Therapeutic Exercises Sitting Exercises 1 Sitting Exercise Name Ankle Tband 4way Side right Resistance #3 band Reps/Minutes x15 each way Comments long sitting Standing Exercises 5 Standing Exercise Name Calf Raises Side bilateral Reps/Minutes 2x10 Comments L eccentric lowering 4 Standing Exercise Name skipping Comments 1 min 3 Standing Exercise Name hopping Reps/Minutes sing leg vs double leg Comments m/l and a/p 1 Standing Exercise Name jumping Reps/Minutes 2x7 Comments squat jump PT-OP-R Modalities Start: 09/12/18 16:01 Freq: Status: Active Protocol: Document 04/25/19 07:30 AMB (Rec: 04/25/19 08:16 AMB [email or web address]) Hot Pack/Cold Pack Treatment Cold Pack Location ankle Patient Position Supine Treatment Duration (minutes) 10 Patient Tolerance Good PT-OP-T Assessment and Plan Start: 09/12/18 16:01 Freq: Status: Active Protocol: Document 04/25/19 07:30 AMB (Rec: 04/25/19 08:16 AMB [email or web address]) Physical Therapy Assessment Assessment Summary Assessment Malaika raymundolrated hopping jumping well, but was sore by the end of the sesion. Notes that usually she is sore for a few hours after the appointment, but the soreness goes away quickly. Physical Therapy Plan Next Visit Focus/Plan Next Note Type Treatment Note Next Visit Plan Follow up on tolerance to hiking, walk/run, hopping/ jumping.
--- NOTE | 2019-05-29 09:09 | PT.OTN ---
Current Diagnoses Unspecified disorder of synovium and tendon, unspecified ankle and foot (05/29/19) Other enthesopathy of unspecified foot (05/29/19) Sprain of unspecified ligament of right ankle, initial encounter (05/29/19) Sprain of other ligament of right ankle, subsequent encounter (05/29/19) Physical Therapy Treatment Note PT-OP-A Visit Information Start: 09/12/18 16:01 Freq: Status: Active Protocol: Document 05/29/19 08:13 AMB (Rec: 05/29/19 08:15 AMB [email or web address]) Out-Patient Physical Therapy Visit Information Visit Information Visit Type Treatment Note Visit Start Time 07:30 Visit Stop Time 08:15 Total Visit Minutes 45 Visit Number 22 PT-OP-B Current Condition Start: 09/12/18 16:01 Freq: Status: Active Protocol: Document 09/12/18 16:01 AMH (Rec: 09/12/18 16:28 AMH [email or web address]) Current Condition History of Current Condition Onset Date 6 weeks ago History of Current Condition 33 year old female with history of chronic ankle sprains since [place]. She reports playing mulpiple sports in [employer] including basketball and skiing/ snowboarding. Currently she sprains her ankle approximatley 5 times per year and it is most often her right ankle. This current time she was in her back yard kicking the ball to her dog when she stepped on a uneven surface and rolled her ankle. She noted that her symptoms were not getting better with ice so she made a MD appointment. She has had a MRI due to increased laxity of her ankle and Dr. Cleveland was concerned about her stability but the MRI was negative. Her chief complaint at this time is pain in the medial side of her foot starting at the arch and going behind her medial malleolus to the middle of her medial raygoza. 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 Prior Functional Status Baseline Function- Other history of ankle instability and ankle sprains since [place] Current Functional Impairments (Reported) Functional Limitations- Work/School difficulty with walking especially on uneven surfaces which she needs to do for her job Functional Limitations- Recreation/ unable to jump, land from a Hobbies jump, or perform cutting/ lateral movements due to pain PT-OP-C Subjective Start: 09/12/18 16:01 Freq: Status: Active Protocol: Document 05/29/19 08:13 AMB (Rec: 05/29/19 08:15 AMB [email or web address]) OP-PT Subjective Patient Comments Patient Comments Pt has been going on moderate hikes and feeling fine with that, she has not returned to basketball or running yet. PT-OP-D Balance Start: 09/12/18 16:01 Freq: Status: Active Protocol: Document 09/12/18 16:01 AMH (Rec: 09/12/18 16:28 AMH [email or web address]) OP-PT Balance Assessment Standing Balance Standing Balance Comments unable to perform single leg balance without support on the right due to pain + gluteus medius drop with SLS bilaterally Rogers Fall Scale Copyright Permission PT-OP-J Posture/Palpation/Skin Start: 09/12/18 16:01 Freq: Status: Active Protocol: Document 09/12/18 16:01 AMH (Rec: 09/12/18 16:28 AMH [email or web address]) Palpation Assessment Location Three Palpation Location R achilles tendon Palpation Findings Soft Tissue Tightness Tenderness Two Palpation Location R ATFL Palpation Findings Edema Tenderness One Palpation Location R posterior tibialis tendon Palpation Findings Soft Tissue Tightness Muscle Guarding Trigger Point Palpation Details tenderness along the tibialis posterior from insertion up to the muscle belly PT-OP-K Range of Motion Start: 09/12/18 16:01 Freq: Status: Active Protocol: Document 09/12/18 16:01 AMH (Rec: 09/12/18 16:28 AMH [email or web address]) Ankle and Foot Goniometric Range of Motion Ankle and Foot Left Active Ankle/Foot ROM WFL Yes Right Active Ankle/Foot ROM WFL Yes Testing Position Sitting Dorsiflexion with Knee Flexed 15 Dorsiflexion with Knee Extended 10 Plantarflexion 5 Inversion 30 Eversion 20 Ankle and Foot ROM Limitations ROM Limitations Soft Tissue Tightness Muscle Tone Pain Swelling Comments pain with AROM and PROM plantar flexion in the medial ankle and achilles tendon region, ( this did lessen following STM and gentle stretching of the achillies and tibialis posterior) PT-OP-M Strength Start: 09/12/18 16:45 Freq: Status: Active Protocol: Document 05/03/19 09:00 BS (Rec: 02/23/19 16:31 BS [id number]) Ankle/Foot Strength Ankle and Foot Manual Muscle Testing Right Plantarflexion (S1) 5 Normal Inversion 5 Normal Eversion (S1) 5 Normal Comments some pain with inversion/ eversion MMT. PT-OP-Q Treatments Start: 09/12/18 16:01 Freq: Status: Active Protocol: Document 05/29/19 09:04 AMB (Rec: 05/29/19 09:09 AMB [email or web address]) Therapeutic Exercises Standing Exercises 7 Standing Exercise Name jogging Reps/Minutes 6x50 feet 5 Standing Exercise Name Calf Raises Side bilateral Reps/Minutes 2x10 Comments L eccentric lowering 4 Standing Exercise Name skipping Comments 2 min 3 Standing Exercise Name hopping Reps/Minutes sing leg vs double leg Comments m/l and a/p, diagonal 1 Standing Exercise Name jumping Reps/Minutes 2x7 Comments squat jump PT-OP-R Modalities Start: 09/12/18 16:01 Freq: Status: Active Protocol: Document 04/25/19 07:30 AMB (Rec: 04/25/19 08:16 AMB [email or web address]) Hot Pack/Cold Pack Treatment Cold Pack Location ankle Patient Position Supine Treatment Duration (minutes) 10 Patient Tolerance Good PT-OP-T Assessment and Plan Start: 09/12/18 16:01 Freq: Status: Active Protocol: Document 05/29/19 09:04 AMB (Rec: 05/29/19 09:09 AMB [email or web address]) Physical Therapy Assessment Assessment Summary Assessment Malaika tolerated jumping a/p and m/l but diagonal was more challenging. Tolerated short bouts of jogging well. Physical Therapy Plan Next Visit Focus/Plan Next Note Type Treatment Note Next Visit Plan Follow up on tolerance to hiking, walk/run, hopping/ jumping.
--- NOTE | 2019-07-04 10:56 | PT.OPDS ---
Current Diagnoses Unspecified disorder of synovium and tendon, unspecified ankle and foot (05/29/19) Other enthesopathy of unspecified foot (05/29/19) Sprain of unspecified ligament of right ankle, initial encounter (05/29/19) Sprain of other ligament of right ankle, subsequent encounter (05/29/19) Visit Care Team Role Provider Type Milagros Haider DO Primary Care Provider Physician Specialty: Family Practice Address: [address] [place] [address], [facility] [place], [address] Email: [email or web address] Cleveland MD Attending Provider Physician Specialty: Orthopedic Surgery Address: [address] [place] [address], [place], [address] Email: [email or web address] Visit Number Visit Number 22 Discharge Summary PT-OP-B Current Condition Start: 09/12/18 16:01 Freq: Status: Active Protocol: Document 09/12/18 16:01 [facility] (Rec: 09/12/18 16:28 [facility] [email or web address]) Current Condition History of Current Condition Onset Date 6 weeks ago History of Current Condition 33 year old female with history of chronic ankle sprains since highschool. She reports playing mulpiple sports in highschool including basketball and skiing/ snowboarding. Currently she sprains her ankle approximatley 5 times per year and it is most often her right ankle. This current time she was in her back yard kicking the ball to her dog when she stepped on a uneven surface and rolled her ankle. She noted that her symptoms were not getting better with ice so she made a MD appointment. She has had a MRI due to increased laxity of her ankle and Dr. Cleveland was concerned about her stability but the MRI was negative. Her chief complaint at this time is pain in the medial side of her foot starting at the arch and going behind her medial malleolus to the middle of her medial raygoza. 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 Prior Functional Status Baseline Function- Other history of ankle instability and ankle sprains since highschool Current Functional Impairments (Reported) Functional Limitations- Work/School difficulty with walking especially on uneven surfaces which she needs to do for her job Functional Limitations- Recreation/ unable to jump, land from a Hobbies jump, or perform cutting/ lateral movements due to pain PT-OP-C Subjective Start: 09/12/18 16:01 Freq: Status: Active Protocol: Document 05/29/19 08:13 AMB (Rec: 05/29/19 08:15 AMB [email or web address]) OP-PT Subjective Patient Comments Patient Comments Pt has been going on moderate hikes and feeling fine with that, she has not returned to basketball or running yet. PT-OP-D Balance Start: 09/12/18 16:01 Freq: Status: Active Protocol: Document 09/12/18 16:01 [facility] (Rec: 09/12/18 16:28 [facility] [email or web address]) OP-PT Balance Assessment Standing Balance Standing Balance Comments unable to perform single leg balance without support on the right due to pain + gluteus medius drop with SLS bilaterally Rogers Fall Scale Copyright Permission PT-OP-J Posture/Palpation/Skin Start: 09/12/18 16:01 Freq: Status: Active Protocol: Document 09/12/18 16:01 [facility] (Rec: 09/12/18 16:28 [facility] [email or web address]) Palpation Assessment Location Three Palpation Location R achilles tendon Palpation Findings Soft Tissue Tightness, Tenderness Two Palpation Location R ATFL Palpation Findings Edema,Tenderness One Palpation Location R posterior tibialis tendon Palpation Findings Soft Tissue Tightness,Muscle Guarding,Trigger Point Palpation Details tenderness along the tibialis posterior from insertion up to the muscle belly PT-OP-K Range of Motion Start: 09/12/18 16:01 Freq: Status: Active Protocol: Document 09/12/18 16:01 [facility] (Rec: 09/12/18 16:28 [facility] [email or web address]) Ankle and Foot Goniometric Range of Motion Ankle and Foot Left Active Ankle/Foot ROM WFL Yes Right Active Ankle/Foot ROM WFL Yes Testing Position Sitting Dorsiflexion with Knee Flexed 15 Dorsiflexion with Knee Extended 10 Plantarflexion 5 Inversion 30 Eversion 20 Ankle and Foot ROM Limitations ROM Limitations Soft Tissue Tightness,Muscle Tone,Pain,Swelling Comments pain with AROM and PROM plantar flexion in the medial ankle and achilles tendon region, ( this did lessen following STM and gentle stretching of the achillies and tibialis posterior) PT-OP-M Strength Start: 09/12/18 16:45 Freq: Status: Active Protocol: Document 02/23/19 09:00 BS (Rec: 02/23/19 16:31 BS [id number]) Ankle/Foot Strength Ankle and Foot Manual Muscle Testing Right Plantarflexion (S1) 5 Normal Inversion 5 Normal Eversion (S1) 5 Normal Comments some pain with inversion/ eversion MMT. PT-OP-T Assessment and Plan Start: 09/12/18 16:01 Freq: Status: Active Protocol: Document 07/04/19 10:54 AMB (Rec: 07/04/19 10:56 AMB [email or web address]) Physical Therapy Assessment Goals Four Impairment decreased strength of the right ankle Prison Goal (LTG) improve ankle strength to 5/5 for improved ankle support and to help prevent further sprains from occuring LTG Duration MET Three Impairment pain rated 4/10 right ankle made worse with walking and hiking activities. Analysis Evaluator Goal (LTG) Heidy is able to return to hiking and walking with improve stability and decreased pain LTG Duration MET Two Impairment pain with SLS activity and loss of balance on the right Prison Goal (LTG) Heidy is able to stand single leg stance on the right without pain for 10-20 seconds LTG Duration MET One Impairment pain with ankle ROM into plantar flexion Short Term Goal (STG) Heidy is able to perform full painfree ROM into plantar flexion without any c/o pain in the medial ankle STG Duration Pain at end range only Assessment Summary Assessment Malaika has met the majority of her goals. She had difficulty at the last visit with return to running and jumping, but was able to do gentle plyometrics without pain. She tolerated short bouts of jogging without pain in the clinic, but had not done so on her own. She called into the clinic to cancel her last scheduled appointment as she felt that she was good at this time, so she is therefore discharged. Physical Therapy Plan Discharge Physical Therapy Discharge Reasons Patient Request
== END 2019-07-05 17:20 | disposition home or self-care (01) ==
LOC: PHYS 07:30
PROVIDERS: PCP Family Medicine; Visit Provider Orthopaedic Surgery
DX: S93.401A Sprain of unspecified ligament of right ankle, initial encounter (principal); M77.50 Other enthesopathy of unspecified foot and ankle; S93.491D Sprain of other ligament of right ankle, subsequent encounter; M67.979 Unspecified disorder of synovium and tendon, unspecified ankle and foot
CPT/HCPCS: 97010; 97035; 97110; 97112; 97140; 97161

== ENCOUNTER → 2020-11-04 15:45 | Outpatient (CLI) | payer OTHER, SELFPAY ==
[2020-11-04 16:16] LABS: COVID19 -Nasal RAPID Negative (Negative)
== END ==
PROVIDERS: PCP Nurse Practitioner Family; Visit Provider Physician Assistant
DX: Z20.822 Contact with and (suspected) exposure to COVID-19 (principal); R09.81 Nasal congestion
CPT/HCPCS: 87070; 87635

== ENCOUNTER → 2021-07-16 08:13 | Outpatient (CLI) | payer OTHER, SELFPAY ==
[2021-07-16 09:51] LABS: Hemoglobin 13.2 g/dL (12.0-16.0); Mean Corpuscular Hemoglobin 30.6 PG (26-34); Mean Corpuscular Volume 90.1 fL (80-100); Platelet Count 292 X10^3/uL (150-400); Red Blood Cell Count 4.33 X10^6/uL (4.0-5.2); Red Cell Distribution Width 12.6 % (11.6-14.8); White Blood Cell Count 6.3 X10^3/uL (4.5-11.0)
[2021-07-16 10:15] LABS: Alanine Aminotransferase 26 IU/L (<35); Albumin 4.3 g/dL (3.5-5.0); Albumin Globulin Ratio 1.3 (1.0-2.8); Alkaline Phosphatase 88 U/L (38-126); Aspartate Aminotransferase 24 IU/L (14-36); BUN Creatinine Ratio 21.4 (6-22); Bilirubin Total 0.5 mg/dL (0.2-1.3); Blood Urea Nitrogen 12 mg/dL (7-17); Calcium 9.2 mg/dL (8.4-10.2); Carbon Dioxide 28 mmol/L (22-32); Chloride 105 mmol/L (98-107); Cholesterol 193 mg/dL (140-199); Estimated Glomerular Filt Rate > 60.0 mL/min (>60); Globulin 3.2 g/dL (1.7-4.1); Glucose 95 mg/dL (70-100); HDL Cholesterol 38 mg/dL (40-60); HEMOLYSIS < 15 (0-50); LDL Cholesterol Calculated 129 mg/dL (<100); Potassium 4.2 mmol/L (3.4-5.1); Sodium 139 mmol/L (137-145); Total Protein 7.5 g/dL (6.3-8.2); Triglycerides 131 mg/dL (35-150)
== END ==
PROVIDERS: PCP Nurse Practitioner Family; Referring Provider Nurse Practitioner Family; Visit Provider Nurse Practitioner Family
DX: E78.2 Mixed hyperlipidemia (principal); Z00.00 Encounter for general adult medical examination without abnormal findings; R74.01 Elevation of levels of liver transaminase levels
CPT/HCPCS: 36415; 80053; 80061; 85027

== ENCOUNTER 2021-08-25 13:49 | Emergency (ER) | payer OTHER, SELFPAY ==
[2021-08-25 13:50] VITALS: BP 154/75; PULSE 98; RESP 13; TEMP 36; O2SAT 98; BMI 32.8
--- NOTE | 2021-08-25 13:53 | ED_ITS ---
HPI - Extremity Injury (Upper) General Chief Complaint: Wound/Laceration Stated Complaint: Left hand lac Time Seen by Provider: 08/25/21 13:53 History of Present Illness HPI narrative: 36-year-old female nonsmoker with noncontributory medical history presents with a chief complaint of a laceration on the dorsum of her left thumb about 45 minutes prior to arrival. Her tetanus will need to be updated. She was using a sharp knife which slipped and lacerated her finger. She has minimal pain and bleeding but states she can no longer completely move her thumb. She denies numbness or tingling. She is otherwise well and free of complaint Related Data Previous Rx's Medication Instructions Recorded escitalopram oxalate 10 mg tablet 10 mg PO DAILY #90 tab 08/04/21 cephalexin 500 mg capsule 500 mg PO Q6H 7 Days #28 cap 08/25/21 Allergies Allergy/AdvReac Type Severity Reaction Status Date / Time No Known Drug Allergies Allergy Verified 08/25/21 13:55 Review of Systems Review of Systems Narrative: GENERAL: Denies chills, fatigue, malaise, fever, sweats. HEENT: Denies sinus pain, ear pain, sore throat, difficulty swallowing, dizziness. RESPIRATORY: Denies dyspnea, cough, wheezing, hemoptysis, sputum. CARDIOVASCULAR: Denies chest pain, palpitations, orthopnea, edema, GASTROINTESTINAL: Denies nausea, vomiting, abdominal pain, diarrhea, constipation, melena. : Denies dysuria, frequency, incontinence, hematuria, urinary retention. MUSCULOSKELETAL: See HPI SKIN: See HPI NEUROLOGIC: Denies weakness, headache, numbness, change in speech, confusion, seizures, incoordination. PSYCHIATRIC: No concerning psychosocial issues. 12 point review of systems is negative except for those stated above Patient History Medical History Ankle pain (~2017) Anxiety Chicken pox Depression Encounter for wellness examination (12/16/20) Mixed hyperlipidemia Sinus congestion Tinea versicolor (~2010) Surgical History [place] teeth removed (~1999) Family History Grandfather Prostate cancer Cancer Grandmother Breast cancer Cancer Grandmother Dementia Social History Smoking Status: Never smoker second hand exposure: No alcohol intake: current substance use type: does not use Smoking Status: Never smoker Exam Narrative Exam Narrative: GEN: AOx3 and in mild distress EYES: Pupils are equal, round, and reactive to light and accommodation. Extraoccular muscles are intact bilaterally. There is no subconjunctival hemorrhage or exudate. CHEST: Lungs are clear to auscultation bilaterally and free of wheezes, rales, or rhonchi. Heart rate is regular rhythm, there are no murmurs, clicks, rubs, or gallops. There is no chest wall tenderness. ABD: Abdomen is soft and nontender. There is no guarding or rebound. Bowel sounds are normal in all 4 quadrants. There is no mass or organomegaly. EXT: 1.5 cm laceration on the dorsum of patient's left thumb overlying the proximal phalanx, when visualized in a bloodless field there is tendon disruption of extensor tendon. Patient is unable to extend at the DIP. Otherwise closed, isolated and neurovascularly intact SKIN: Warm, pink, and dry. No erythema or rash Initial Vital Signs Initial Vital Signs: Vital Signs Temperature 96.8 F L 08/25/21 13:50 Pulse Rate 98 H 08/25/21 13:50 Respiratory Rate 13 08/25/21 13:50 Blood Pressure 154/75 H 08/25/21 13:50 Pulse Oximetry 98 08/25/21 13:50 Procedures Laceration Repair Laceration 1: Site: upper extremity Side (If applicable): left Size (cm): 1.5 Description: linear Depth: involves tendon Local Anesthetic: lidocaine 1% and with bicarb Amount of anesthesia used (mL): 3 Pre-repair: wound explored and irrigated extensively Skin layer closed with: nylon Size (cm): 3-0 Number of sutures: 3 Technique: simple, interrupted Orthopedic Splinting/Casting Injury #1: Side: left Upper Extremity Injury Location: finger Upper Extremity Immobilizer: thumb spica Post splinting neuro exam: intact Post splinting vascular exam: intact Placed by: Nursing Course Orders Ordered: Discontinued Medications Diphtheria/Tetanus/Acell Pertussis (Tet,Diph,Pertuss(Acell),Vac/Pf 0.5 Ml Syringe) 0.5 ml IM .ONCE ONE Stop: 08/25/21 13:54 Last Admin: 08/25/21 14:00 Dose: 0.5 ml Documented by: RAZ Lidocaine/Sodium Bicarbonate (Lido 1%/Sod Bicarb 8.4% (10ml) 10 Ml Syringe) 10 ml INJ NOW ONE Stop: 08/25/21 13:54 Last Admin: 08/25/21 13:59 Dose: 10 ml Documented by: RAZ Vital Signs Vital signs: Vital Signs - 8 hr 08/25/21 13:50 Temperature 96.8 F L Pulse Rate 98 H Respiratory Rate 13 Blood Pressure 154/75 H Pulse Oximetry 98 Discharge Plan Departure Patient Disposition: Home Clinical Impression: Laceration of tendon of thumb Instructions: DI for Laceration Repair Activity Restrictions/Additional Instructions: *You have been diagnosed with [left thumb laceration with tendon involvement *What to do: *Please continue to take your regular medications as directed. [x ] New medication prescriptions sent to your pharmacy: [Anish] [ ] New medication written as a paper prescription [x] Tylenol and occasional Motrin for pain *Please follow up with [ Reji] of [facility] in 2-3 days, call for an appointment. Let them know you were seen in the Emergency Department and that we ask that you be seen in follow up. We will electronically transmit a record of today's note if your PCP is in our system *Return to Emergency Department if you should have any new, worsening or concerning symptoms, such as [worsening pain, significant swelling, cold extremities, numbness, tingling, weakness or other bothersome symptoms Prescriptions: New cephalexin 500 mg capsule 500 mg PO Q6H 7 Days Qty: 28 RF: 0 No Action escitalopram oxalate 10 mg tablet 10 mg PO DAILY Qty: 90 RF: 2 Referrals: Colby Harris ARNP [Primary Care Provider] - Heriberto Mendoza MD [Physician] -
[2021-08-25] MEDS: LIDO 1%/SOD BICARB 8.4% (10ML) 10 ML SYRINGE INJ (13:59)
[2021-08-25] MEDS: TET,DIPH,PERTUSS(ACELL),VAC/PF 0.5 ML SYRINGE IM (14:00)
--- NOTE | 2021-08-25 14:11 | PC.NURSE ---
Provider Dr. Ann asked to talk to Dr. Mendoza at 14:12 for consult. Connected providers at at 14:14.
--- NOTE | 2021-08-25 14:36 | PC.NURSE ---
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 Lac appears to be a clean cut, states 0/[address] Ann applied sutures x 3, lido used prior to procedure for numbing and patient comfort. Patient tolerated procedure well. Wound dressed and thumb splint applied.
== END 2021-08-25 14:35 | disposition home or self-care (01) ==
PROVIDERS: Emergency Provider Emergency Medicine; PCP Nurse Practitioner Family
DX: S61.012A Laceration without foreign body of left thumb without damage to nail, initial encounter (principal); W26.0XXA Contact with knife, initial encounter; Z23 Encounter for immunization
CPT/HCPCS: 12001; 90471; 99283; 90715

== ENCOUNTER → 2022-06-09 08:01 | Outpatient (CLI) | payer OTHER, SELFPAY ==
[2022-06-09 09:56] LABS: Add Manual Diff / Slide Review NO; Basophils Absolute Auto 100 /uL (0-100); Basophils Percent Auto 0.8 % (0-2); Eosinophils Absolute Auto 300 /uL (0-450); Eosinophils Percent Auto 4.2 % (2-4); Hematocrit 37.9 % (36-46); Hemoglobin 13.2 g/dL (12.0-16.0); Lymphocytes Absolute Auto 1500 /uL (1100-4500); Lymphocytes Percent Auto 22.1 % (25-40); Mean Corpuscular HGB Conc 34.8 % (30-36); Mean Corpuscular Hemoglobin 30.6 PG (26-34); Monocytes Absolute Auto 600 /uL (0-900); Monocytes Percent Auto 8.8 % (3-14); Neutrophils Absolute Auto 4200 /uL (1500-7000); Neutrophils Percent Auto 64.1 % (50-75); Platelet Count 254 X10^3/uL (150-400); Red Cell Distribution Width 13.1 % (11.6-14.8); White Blood Cell Count 6.6 X10^3/uL (4.5-11.0)
[2022-06-09 10:34] LABS: Alanine Aminotransferase 34 IU/L (<35); Albumin 4.2 g/dL (3.5-5.0); Albumin Globulin Ratio 1.5 (1.0-2.8); Alkaline Phosphatase 91 U/L (38-126); Aspartate Aminotransferase 29 IU/L (14-36); BUN Creatinine Ratio 17.5 (6-22); Bilirubin Total 0.7 mg/dL (0.2-1.3); Blood Urea Nitrogen 10 mg/dL (7-17); Calcium 8.5 mg/dL (8.4-10.2); Carbon Dioxide 26 mmol/L (22-32); Chloride 102 mmol/L (98-107); Cholesterol 173 mg/dL (140-199); Estimated Glomerular Filt Rate > 60 mL/min (>60); Globulin 2.8 g/dL (1.7-4.1); Glucose 88 mg/dL (70-100); HDL Cholesterol 36 mg/dL (40-60); HEMOLYSIS < 15 (0-50); LDL Cholesterol Calculated 119 mg/dL (<100); Potassium 4.3 mmol/L (3.4-5.1); Sodium 136 mmol/L (137-145); Triglycerides 92 mg/dL (35-150)
[2022-06-09 10:51] LABS: Free T3, Triiodothyronine Free 4.03 pg/mL (2.77-5.27); Free T4, Direct Thyroxine 1.12 ng/dL (0.78-2.19)
== END ==
PROVIDERS: PCP Naturopath; Referring Provider Naturopath; Visit Provider Naturopath
DX: Z00.00 Encounter for general adult medical examination without abnormal findings (principal); R53.83 Other fatigue
CPT/HCPCS: 36415; 80053; 80061; 84439; 84443; 84481; 85025

== ENCOUNTER → 2023-09-12 08:19 | Outpatient (CLI) | payer OTHER, SELFPAY ==
[2023-09-12 09:38] LABS: Add Manual Diff / Slide Review NO; Basophils Absolute Auto 100 /uL (0-100); Basophils Percent Auto 0.9 % (0-2); Eosinophils Absolute Auto 300 /uL (0-450); Eosinophils Percent Auto 3.8 % (2-4); Hematocrit 39.8 % (36-46); Hemoglobin 13.5 g/dL (12.0-16.0); Lymphocytes Absolute Auto 1700 /uL (1100-4500); Lymphocytes Percent Auto 23.2 % (25-40); Mean Corpuscular HGB Conc 34.1 % (30-36); Mean Corpuscular Hemoglobin 29.9 PG (26-34); Mean Corpuscular Volume 87.8 fL (80-100); Monocytes Absolute Auto 500 /uL (0-900); Monocytes Percent Auto 7.1 % (3-14); Neutrophils Absolute Auto 4800 /uL (1500-7000); Platelet Count 340 X10^3/uL (150-400); Red Blood Cell Count 4.53 X10^6/uL (4.0-5.2); White Blood Cell Count 7.4 X10^3/uL (4.5-11.0)
[2023-09-12 09:59] LABS: Alanine Aminotransferase 39 IU/L (<35); Albumin 4.3 g/dL (3.5-5.0); Albumin Globulin Ratio 1.3 (1.0-2.8); Alkaline Phosphatase 103 U/L (38-126); Aspartate Aminotransferase 27 IU/L (14-36); BUN Creatinine Ratio 12.3 (6-22); Bilirubin Total 0.8 mg/dL (0.2-1.3); Blood Urea Nitrogen 8 mg/dL (7-17); Calcium 9.7 mg/dL (8.4-10.2); Carbon Dioxide 26 mmol/L (22-32); Chloride 101 mmol/L (98-107); Cholesterol 222 mg/dL (140-199); Estimated Glomerular Filt Rate > 60 mL/min (>60); Globulin 3.2 g/dL (1.7-4.1); Glucose 99 mg/dL (70-100); HDL Cholesterol 40 mg/dL (40-60); HEMOLYSIS < 15 (0-50); LDL Cholesterol Calculated 153 mg/dL (<100); Potassium 4.1 mmol/L (3.4-5.1); Sodium 136 mmol/L (137-145); Total Protein 7.5 g/dL (6.3-8.2); Triglycerides 147 mg/dL (35-150)
== END ==
PROVIDERS: PCP Naturopath; Referring Provider Naturopath; Visit Provider Naturopath
DX: Z00.00 Encounter for general adult medical examination without abnormal findings (principal)
CPT/HCPCS: 36415; 80053; 80061; 85025

== ENCOUNTER → 2024-09-14 07:25 | Outpatient (CLI) | payer OTHER, SELFPAY ==
[2024-09-14 07:59] LABS: Add Manual Diff / Slide Review NO; Basophils Absolute Auto 100 /uL (0-100); Basophils Percent Auto 0.8 % (0-2); Eosinophils Absolute Auto 100 /uL (0-450); Eosinophils Percent Auto 2.1 % (2-4); Hematocrit 41.5 % (36-46); Lymphocytes Absolute Auto 1800 /uL (1100-4500); Lymphocytes Percent Auto 25.3 % (25-40); Mean Corpuscular HGB Conc 33.6 % (30-36); Mean Corpuscular Hemoglobin 30.6 PG (26-34); Monocytes Absolute Auto 600 /uL (0-900); Monocytes Percent Auto 8.7 % (3-14); Neutrophils Absolute Auto 4400 /uL (1500-7000); Neutrophils Percent Auto 63.1 % (50-75); Platelet Count 278 X10^3/uL (150-400); Red Blood Cell Count 4.56 X10^6/uL (4.0-5.2); Red Cell Distribution Width 12.9 % (11.6-14.8); White Blood Cell Count 6.9 X10^3/uL (4.5-11.0)
[2024-09-14 08:25] LABS: Alanine Aminotransferase 23 IU/L (<35); Albumin 4.6 g/dL (3.5-5.0); Albumin Globulin Ratio 1.6 (1.0-2.8); Alkaline Phosphatase 76 U/L (38-126); Aspartate Aminotransferase 26 IU/L (14-36); BUN Creatinine Ratio 21.9 (6-22); Bilirubin Total 0.7 mg/dL (0.2-1.3); Blood Urea Nitrogen 14 mg/dL (7-17); Calcium 9.5 mg/dL (8.4-10.2); Carbon Dioxide 28 mmol/L (22-32); Chloride 101 mmol/L (98-107); Cholesterol 217 mg/dL (140-199); Estimated Glomerular Filt Rate > 60 mL/min (>60); Globulin 2.8 g/dL (1.7-4.1); Glucose 93 mg/dL (70-100); HDL Cholesterol 56 mg/dL (40-60); HEMOLYSIS < 15 (0-50); LDL Cholesterol Calculated 149 mg/dL (<100); Potassium 4.3 mmol/L (3.4-5.1); Sodium 137 mmol/L (137-145); Total Protein 7.4 g/dL (6.3-8.2); Triglycerides 61 mg/dL (35-150)
[2024-09-14 08:47] LABS: Thyroid Stimulating Hormone 0.871 uIU/mL (0.47-4.68)
[2024-09-14 08:54] LABS: Ferritin 28 ng/mL (6-137)
[2024-09-15 04:36] LABS: Apolipoprotein B 107 mg/dL (<90)
== END ==
PROVIDERS: PCP Naturopath; Referring Provider Naturopath; Visit Provider Naturopath
DX: Z00.00 Encounter for general adult medical examination without abnormal findings (principal); E78.00 Pure hypercholesterolemia, unspecified; R53.83 Other fatigue
CPT/HCPCS: 36415; 80053; 80061; 82172; 82728; 84443; 85025

== ENCOUNTER 2024-09-19 09:03 | Emergency (ER) | payer OTHER, SELFPAY ==
[2024-09-19] VITALS (10 sets, daily range): BP systolic 126–154; BP diastolic 64–92; PULSE 61–87; RESP 14–16; TEMP 36.7; O2SAT 93–100; BMI 36.0
[2024-09-19 09:52] LABS: Urine Volume 10mL (spun)
[2024-09-19 09:52] LABS: Alanine Aminotransferase 30 IU/L (<35); Albumin 4.4 g/dL (3.5-5.0); Albumin Globulin Ratio 1.5 (1.0-2.8); Alkaline Phosphatase 80 U/L (38-126); Aspartate Aminotransferase 35 IU/L (14-36); BUN Creatinine Ratio 18.8 (6-22); Bilirubin Total 0.8 mg/dL (0.2-1.3); Blood Urea Nitrogen 13 mg/dL (7-17); Calcium 9.1 mg/dL (8.4-10.2); Carbon Dioxide 24 mmol/L (22-32); Chloride 105 mmol/L (98-107); Estimated Glomerular Filt Rate > 60 mL/min (>60); Globulin 2.9 g/dL (1.7-4.1); Glucose 110 mg/dL (70-100); HEMOLYSIS < 15 (0-50); Lipase 64 U/L (23-300); Sodium 135 mmol/L (137-145); Total Protein 7.3 g/dL (6.3-8.2)
[2024-09-19 09:53] LABS: Bacteria Urine None Seen; Culture Indicated Urine Cult Not Indicated; RBC Urine 1-5/HPF (0-5/HPF); Squamous Epithelial Cell Urine 1-5 /HPF (0-5/HPF); WBC Urine None Seen (0-5/HPF)
[2024-09-19 10:10] LABS: Add Manual Diff / Slide Review NO; Basophils Absolute Auto 100 /uL (0-100); Basophils Percent Auto 0.8 % (0-2); Eosinophils Absolute Auto 100 /uL (0-450); Eosinophils Percent Auto 0.9 % (2-4); Hematocrit 39.7 % (36-46); Hemoglobin 13.3 g/dL (12.0-16.0); Lymphocytes Absolute Auto 1500 /uL (1100-4500); Lymphocytes Percent Auto 14.7 % (25-40); Mean Corpuscular HGB Conc 33.6 % (30-36); Mean Corpuscular Hemoglobin 30.4 PG (26-34); Mean Corpuscular Volume 90.3 fL (80-100); Monocytes Absolute Auto 800 /uL (0-900); Monocytes Percent Auto 7.8 % (3-14); Neutrophils Absolute Auto 7700 /uL (1500-7000); Neutrophils Percent Auto 75.8 % (50-75); Platelet Count 268 X10^3/uL (150-400); Red Blood Cell Count 4.39 X10^6/uL (4.0-5.2); White Blood Cell Count 10.2 X10^3/uL (4.5-11.0)
--- NOTE | 2024-09-19 11:10 | ED_ITS ---
HPI - Abdominal Pain General Chief Complaint: Abdominal Pain Stated Complaint: abd/back cramping/pain Time Seen by Provider: 09/19/24 11:05 Source: patient Mode of arrival: Ambulatory History of Present Illness HPI narrative: 39-year-old female complains of lower abdominal discomfort right-sided and suprapubic and left-sided onset 0100 this morning, not responsive to oral doses of Tylenol and ibuprofen, no vaginal bleeding, is due for her menses, does not usually have painful periods or premenstrual symptoms, does not believe she has any likely , no vaginal discharge, no pelvic infections. She has had some nausea without emesis. Denies black stools, loose stools, last bowel movement yesterday unremarkable. Related Data Home Medications Medication Instructions Recorded Confirmed bupropion HCl 150 mg tablet,12 hr 150 mg PO DAILY 09/01/23 09/01/23 sustained-release Previous Rx's Medication Instructions Recorded fluticasone propionate 50 1 spray intranasal Q12H #16 grams 09/01/23 mcg/actuation nasal spray,suspension (Flonase Allergy Relief) Allergies Allergy/AdvReac Type Severity Reaction Status Date / Time No Known Drug Allergies Allergy Verified 09/19/24 09:15 Review of Systems Review of Systems Narrative: see HPI Patient History Medical History Ankle pain (~2017) Anxiety Chicken pox Depression Encounter for wellness examination (12/16/20) Mixed hyperlipidemia Sinus congestion Tinea versicolor (~2010) Surgical History [place] teeth removed (~1999) Family History Grandfather Prostate cancer Cancer Grandmother Breast cancer Cancer Grandmother Dementia Social History Smoking Status: Never smoker second hand exposure: No alcohol intake: current substance use type: does not use Smoking Status: Never smoker alcohol intake frequency: holidays/special occasions only Substance Use Type: does not use Exam Narrative Exam Narrative: GENERAL: Well-developed patient, in mild distress. HEAD: Atraumatic. Normocephalic. EYES: Pupils equal round and reactive. Extraocular motions intact. No scleral icterus. No injection or drainage. ENT: Nose without bleeding, purulent drainage. Throat without erythema, tonsillar hypertrophy or exudate. Airway patent. NECK: Trachea midline. Non tender CARDIOVASCULAR: Regular rate and rhythm without murmurs, gallops, or rubs. RESPIRATORY: Clear to auscultation. Breath sounds equal bilaterally. No wheezes, rales, or rhonchi. GASTROINTESTINAL: Abdomen soft, non-tender, nondistended. EXTREMITIES: No edema or joint tenderness. BACK: Nontender without deformity or crepitance. No flank tenderness. NEURO: AOx3. Motor functions grossly nonfocal SKIN: No rash or erythema of visible areas Initial Vital Signs Initial Vital Signs: Vital Signs Temperature 98.1 F 09/19/24 09:04 Pulse Rate 70 09/19/24 09:04 Respiratory Rate 14 09/19/24 09:04 Blood Pressure 153/92 H 09/19/24 09:04 Pulse Oximetry 100 09/19/24 09:04 Oxygen Delivery Method Room Air 09/19/24 09:04 Course Orders Ordered: ED Orders 09/19/24 11:44 CT abdomen pelvis w con Stat 09/19/24 12:56 US pelvic complete Stat Discontinued Medications Ketorolac Tromethamine (Ketorolac 30 Mg/Ml Vial) 15 mg IV NOW ONE Stop: 09/19/24 11:42 Last Admin: 09/19/24 12:10 Dose: 15 mg Documented By: CHASE Ondansetron HCl (Ondansetron 4 Mg/2 Ml Inj) 4 mg IV NOW PRN PRN Reason: Nausea And Vomiting Ondansetron HCl (Ondansetron 4 Mg Odt) 4 mg PO NOW PRN PRN Reason: Nausea And Vomiting Vital Signs Vital signs: Vital Signs - 8 hr 09/19/24 12:35 09/19/24 12:36 09/19/24 12:36 Pulse Rate 76 71 Respiratory Rate Blood Pressure 154/72 H Pulse Oximetry 100 100 Oxygen Delivery Method 09/19/24 12:37 09/19/24 15:10 09/19/24 15:11 Pulse Rate 74 61 Respiratory Rate 16 Blood Pressure 154/72 H Pulse Oximetry 99 93 99 Oxygen Delivery Method Room Air Room Air 09/19/24 15:11 Pulse Rate Respiratory Rate Blood Pressure 126/64 Pulse Oximetry Oxygen Delivery Method MDM - Abdominal Pain Lab Data Attestation: I reviewed the patient's lab results. Lab results narrative: White blood cell count 12492, hemoglobin 13.3, platelets adequate. Basic metabolic panel results unremarkable. Liver functions unremarkable. Lipase normal, urinalysis negative. Urine negative. 09/19/24 09:28 09/19/24 09:28 Labs: Lab Results 09/19/24 09/19/24 Range/Units 09:28 09:31 WBC 10.2 (4.5-11.0) X10^3/uL RBC 4.39 (4.0-5.2) X10^6/uL Hgb 13.3 (12.0-16.0) g/dL Hct 39.7 (36-46) % MCV 90.3 (80-100) fL MCH 30.4 (26-34) PG MCHC 33.6 (30-36) % RDW 13.0 (11.6-14.8) % Plt Count 268 (150-400) X10^3/uL Neut % (Auto) 75.8 H (50-75) % Lymph % (Auto) 14.7 L (25-40) % Campbell % (Auto) 7.8 (3-14) % Eos % (Auto) 0.9 L (2-4) % Baso % (Auto) 0.8 (0-2) % Neut # (Auto) 7700 H (0024-2848) /uL Lymph # (Auto) 1500 (3952-2757) /uL Campbell # (Auto) 800 (0-900) /uL Eos # (Auto) 100 (0-450) /uL Baso # (Auto) 100 (0-100) /uL Sodium 135 L (137-145) mmol/L Potassium 4.0 (3.4-5.1) mmol/L Chloride 105 (98-107) mmol/L Carbon Dioxide 24 (22-32) mmol/L BUN 13 (7-17) mg/dL Creatinine 0.69 (0.52-1.04) mg/dL Estimated GFR > 60 (>60) mL/min BUN/Creatinine Ratio 18.8 (6-22) Glucose 110 H (70-100) mg/dL Calcium 9.1 (8.4-10.2) mg/dL Total Bilirubin 0.8 (0.2-1.3) mg/dL AST 35 (14-36) IU/L ALT 30 (<35) IU/L Alkaline Phosphatase 80 (38-126) U/L Total Protein 7.3 (6.3-8.2) g/dL Albumin 4.4 (3.5-5.0) g/dL Globulin 2.9 (1.7-4.1) g/dL Albumin/Globulin Ratio 1.5 (1.0-2.8) Lipase 64 (23-300) U/L Urine RBC 1-5/hpf (0-5/HPF) Urine WBC None seen (0-5/HPF) Ur Squamous Epith Cells 1-5 /hpf (0-5/HPF) Urine Bacteria None seen (None) Ur Culture Indicated? Cult not indicated Vol Urine Centrifuged 10ml (spun) Point of care testing: Point of Care Testing Test Results Negative Urine Dip Bedside Urine Glucose Negative Bedside Urine Bilirubin - Negative Bedside Urine Ketone - Negative Urine Specific [place] 1.005 Bedside Urine Occult Blood ++ Bedside Urine pH 6.0 Bedside Urine Protein - Negative Bedside Urine Urobilinogen - Negative Bedside Urine Nitrite - Negative Bedside Urine Leukocytes - Negative Esterase Imaging Data CT scan - abdomen/pelvis: Radiologist's Impression: Close Abdomen/Pelvis CT (Signed) [place] - 09/19/24 [place] [address] CT Scan Report Signed Patient: Heidy Cuello MR#: [id number] : 1985 Acct:[id number] Age/Sex: 39 / F Date of Service: 09/19/24 Loc: ED Accession Number: [id number] Procedure: CT abdomen pelvis w con Ordering Provider: Parker Kuo MD PROCEDURE: CT ABDOMEN PELVIS W CON INDICATIONS: lower abd pain TECHNIQUE: After the administration of intravenous contrast, axial sections acquired from the lung bases to the pubic symphysis. Coronal and sagittal reformats were performed. For radiation dose reduction, the following was used: automated exposure control, adjustment of mA and/or kV according to patient size. COMPARISON: None. FINDINGS: Image quality: Diagnostic. Lower Chest: No significant findings. ABDOMEN: Liver: No solid mass. Gallbladder: No radiopaque gallstones or wall thickening. Biliary ducts: No biliary dilation. Pancreas: No ductal dilation. Spleen: Size is within normal limits. Adrenal Glands: No adrenal nodules. Kidneys and Ureters: There is minimal right hydronephrosis and mild right hydroureter. There is a question of a slightly delayed right nephrogram. There is no obstructing ureteral stone identified. Stomach and Bowel: Normal colonic caliber, without significant wall thickening. Peritoneum: Slightly greater than physiologic pelvic fluid. No free air. Ventral Wall: No significant ventral hernia. Abdominal Nodes: No retroperitoneal or mesenteric adenopathy by size criteria. Vessels: Aorta and inferior vena cava are normal in size. PELVIS: Pelvic Organs: Bilateral cystic adnexae with slightly greater than expected fluid in proximity to the left ovary and in the cul-de-sac. Bladder: No bladder wall thickening, accounting for underdistention. Pelvic Nodes: No enlarged lymph nodes. Miscellaneous: No inguinal hernias are seen. Bones: No aggressive osseous abnormality. IMPRESSION: 1. Question mildly delayed right nephrogram with very mild hydronephrosis and hydroureter. There is no obstructing stone. Recommend correlation for presence or absence of sign suggesting pyelonephritis/ureteritis. 2. Bilateral cystic adnexa with slightly greater than physiologic fluid. If clinically suspect ovarian torsion, recommend pelvic ultrasound. Dictated by: Davy Vazquez M.D. on 09/19/2024 at 12:25 Approved by: Davy Vazquez M.D. on 09/19/2024 at 12:30 [facility] Narrative Medical decision making narrative: 39-year-old female with bilateral lower abdominal pain, afebrile, sirs screen negative, no tenderness on examination. Screening labs unremarkable, test negative, urinalysis negative. Patient prefers imaging, we discussed ultrasound pelvis versus CT abdomen and pelvis, she prefers CT abdomen pelvis imaging, discussed risks of radiation, she persistent request for imaging. CT abdomen and pelvis ordered. CT shows mild right hydroureter, no stones kidney or ureter, concern for possible recent infection correlate. Also bilateral cystic adnexae, concern for possible torsion, advised ultrasound if indicated. See radiology report. Case discussed with patient, urinalysis not suggestive of infection. She would like to pursue further imaging, ultrasound pelvis requested. Ultrasound pelvis shows complex right adnexal cystic mass, likely complex hemorrhagic ovarian cyst, good blood flow, minimal free fluid cul-de-sac, dimension mentioned 4 x 2.7 x 5.3 cm. See dictated radiology report. Copy of the report given to patient. Patient seems improved, continue [id number] anti-inflammatory medications as needed. Follow up with PCP advised, contact information for for local gynecology to use if needed for follow up. Stable, improved, home with family Discharge Plan Departure Patient Disposition: Home Clinical Impression: Complex cyst of right ovary Activity Restrictions/Additional Instructions: Right-sided lower pelvic pain, screening labs unremarkable, test negative, urinalysis not obvious for infection. We discussed imaging modalities, he preferred initial CT abdomen and pelvis imaging, that study was done, possible right-sided cyst. Ultrasound study in follow up to look for torsion did not confirm any ovarian torsion, there was good blood flow to both ovaries, however there has a complex appearing fairly small right ovarian cyst that might be the cause of your pain, as it likely appears hemorrhagic per radiology report. This is not usually require surgical intervention but is important to have follow up for resolution. Follow up with your regular doctor as planned. Also contact information for gynecology on-call provided to use if needed. Take [id number] pain medications as needed for pain control for now. Return earlier to this/nearest emergency department for any change worsening symptoms or any concerns prior Prescriptions: No Action bupropion HCl 150 mg tablet sustained-release 12 hr 150 mg PO DAILY fluticasone propionate [Flonase Allergy Relief] 50 mcg/actuation spray,suspension 1 spray intranasal Q12H Qty: 16 0RF Rx Instructions: administer into each nostril Referrals: Henna hCan [place] [Primary Care Provider] - Loraine Presley MD [Physician] - Stand Alone Forms: Patient Portal/API/Survey
--- NOTE | 2024-09-19 11:44 | DI.CT.S_ITS ---
PROCEDURE: CT ABDOMEN PELVIS W CON INDICATIONS: lower abd pain TECHNIQUE: After the administration of intravenous contrast, axial sections acquired from the lung bases to the pubic symphysis. Coronal and sagittal reformats were performed. For radiation dose reduction, the following was used: automated exposure control, adjustment of mA and/or kV according to patient size. COMPARISON: None. FINDINGS: Image quality: Diagnostic. Lower Chest: No significant findings. ABDOMEN: Liver: No solid mass. Gallbladder: No radiopaque gallstones or wall thickening. Biliary ducts: No biliary dilation. Pancreas: No ductal dilation. Spleen: Size is within normal limits. Adrenal Glands: No adrenal nodules. Kidneys and Ureters: There is minimal right hydronephrosis and mild right hydroureter. There is a question of a slightly delayed right nephrogram. There is no obstructing ureteral stone identified. Stomach and Bowel: Normal colonic caliber, without significant wall thickening. Peritoneum: Slightly greater than physiologic pelvic fluid. No free air. Ventral Wall: No significant ventral hernia. Abdominal Nodes: No retroperitoneal or mesenteric adenopathy by size criteria. Vessels: Aorta and inferior vena cava are normal in size. PELVIS: Pelvic Organs: Bilateral cystic adnexae with slightly greater than expected fluid in proximity to the left ovary and in the cul-de-sac. Bladder: No bladder wall thickening, accounting for underdistention. Pelvic Nodes: No enlarged lymph nodes. Miscellaneous: No inguinal hernias are seen. Bones: No aggressive osseous abnormality. IMPRESSION: 1. Question mildly delayed right nephrogram with very mild hydronephrosis and hydroureter. There is no obstructing stone. Recommend correlation for presence or absence of sign suggesting pyelonephritis/ureteritis. 2. Bilateral cystic adnexa with slightly greater than physiologic fluid. If clinically suspect ovarian torsion, recommend pelvic ultrasound. Dictated by: Davy Vazquez M.D. on 09/19/2024 at 12:25 Approved by: Davy Vazquez M.D. on 09/19/2024 at 12:30
[2024-09-19] MEDS: KETOROLAC 30 MG/ML VIAL 15 MG IV (12:10)
--- NOTE | 2024-09-19 12:56 | DI.US.S_ITS ---
PROCEDURE: US PELVIC COMPLETE INDICATIONS: pelvic abd pain TECHNIQUE: Real-time scanning was performed of the pelvic organs, with image documentation. Additional endovaginal scanning was necessary due to incomplete visualization of the adnexal and endometrial structures by transabdominal scanning. COMPARISON: [facility], CT, CT ABDOMEN PELVIS W CON, 09/19/2024, 11:55. FINDINGS: Uterus: Uterus is anteverted and normal in size at 4.1 x 3.5 x 5.3 cm. The myometrium is mildly heterogeneous. The endometrium measures 7.2 mm combined thickness. No uterine fibroids seen. Ovaries: The right ovary measures 4.0 x 2.7 x 5.3 cm, with a calculated ovarian volume of 29.9 cc. The left ovary measures 3.2 x 2.2 x 2.4 cm, with a calculated ovarian volume of 8.8 cc. The ovaries have a normal sonographic appearance. Less than 12 follicles can be seen in each ovary. No adnexal masses are seen on the left but there is what appears to be a complex presumably hemorrhagic right ovarian cyst measuring up to 3.7 x 3.3 x 2.3 cm associated with the asymmetric enlargement of the right ovary. No visualized evidence of ovarian torsion. Other: There is a moderate excess of free pelvic fluid in the lower pelvis both anteriorly and posteriorly. IMPRESSION: Complex right adnexal cystic mass, likely a complex hemorrhagic ovarian cyst on the right. Mild excess of free peritoneal fluid deep within the cul-de-sac. This fluid does not appear complex. Follow-up pelvic ultrasound is recommended in 6-8 weeks to confirm resolution of this abnormality. We strive to produce accurate, complete, and clear reports of imaging services. To assist us in improving patient care, this report was composed using standard report templates and voice recognition software. Therefore, it may contain abnormal punctuation, insertions and/or omissions. Occasional wrong-word or sound-alike substitutions may occur. Though we review the report and make efforts to correct it, we do recommend that the report be read carefully in proper context to recognize any text inaccuracies. Dictated by: Jermaine Hope M.D. on 09/19/2024 at 14:01 Approved by: Jermaine Hope M.D. on 09/19/2024 at 14:07
== END 2024-09-19 15:10 | disposition home or self-care (01) ==
PROVIDERS: Emergency Provider Emergency Medicine; PCP Naturopath
DX: N83.291 Other ovarian cyst, right side (principal)
CPT/HCPCS: 36415; 74177; 76830; 76856; 80053; 81003; 81015; 81025; 83690; 85025; 93975; 96374; 99284; J1885; Q9967

== ENCOUNTER → 2025-09-13 08:26 | Outpatient (CLI) | payer OTHER, SELFPAY ==
[2025-09-13 09:30] LABS: Add Manual Diff / Slide Review NO; Hematocrit 40.8 % (36-46); Hemoglobin 14.0 g/dL (12.0-16.0); Lymphocytes Absolute Auto 1500 /uL (1100-4500); Mean Corpuscular HGB Conc 34.3 % (30-36); Mean Corpuscular Hemoglobin 30.5 PG (26-34); Mean Corpuscular Volume 89.1 fL (80-100); Platelet Count 269 X10^3/uL (150-400)
[2025-09-13 09:56] LABS: Alanine Aminotransferase 49 IU/L (<35); Alkaline Phosphatase 78 U/L (38-126); Blood Urea Nitrogen 10 mg/dL (7-17); Carbon Dioxide 26 mmol/L (22-32); Estimated Glomerular Filt Rate > 60 mL/min (>60); HEMOLYSIS < 15 (0-50); Potassium 4.5 mmol/L (3.4-5.1)
[2025-09-13 09:58] LABS: Albumin 4.4 g/dL (3.5-5.0); Albumin Globulin Ratio 1.4 (1.0-2.8); Calcium 9.3 mg/dL (8.4-10.2); Chloride 104 mmol/L (98-107); Cholesterol 198 mg/dL (140-199); Globulin 3.1 g/dL (1.7-4.1); Glucose 98 mg/dL (70-99); HDL Cholesterol 46 mg/dL (40-60); Sodium 138 mmol/L (137-145); Total Protein 7.5 g/dL (6.3-8.2); Triglycerides 99 mg/dL (35-150)
[2025-09-13 10:30] LABS: Ferritin 52 ng/mL (6-137)
== END ==
PROVIDERS: PCP Naturopath; Referring Provider Naturopath; Visit Provider Naturopath
DX: Z00.00 Encounter for general adult medical examination without abnormal findings (principal); E61.0 Copper deficiency
CPT/HCPCS: 36415; 80053; 80061; 82728; 85025